=== PATIENT | female | born 1990 | race Two or more races ===

== ENCOUNTER 2016-04-25 20:16 | Outpatient (CLI) | payer BC ==
[2016-04-25 21:15] LABS: APPEARANCE,URINE SLIGHTLY-CLOUDY; BILIRUBIN,URINE NEGATIVE (NEGATIVE); GLUCOSE, URINE NEGATIVE (NEGATIVE); KETONES,URINE NEGATIVE (NEGATIVE); LEUKOCYTE ESTERASE,URINE NEGATIVE (NEGATIVE); NITRITE,URINE NEGATIVE (NEGATIVE); PROTEIN,URINE NEGATIVE (NEGATIVE); URINE SPECIFIC GRAVITY 1.004; UROBILINOGEN,URINE NEGATIVE mg/dL (<2.0)
[2016-04-25 21:27] LABS: AMNISURE (ROM) NEGATIVE (NEGATIVE)
[2016-04-25 21:34] LABS: URINE BARBITURATES SCREEN NEGATIVE; URINE METHADONE SCREEN NEGATIVE; URINE PHENCYCLIDINE SCREEN NEGATIVE
--- NOTE | 2016-04-25 21:45 | Non Stress Test Report ---
Non Stress Test Datetime Report Generated by CPN: 04/25/2016 21:45 DEMOGRAPHIC EGA NST: 39.6 INDICATION Indication for Study: Ordered by Provider; Other Indication for Study (NST) Other: LC URINE RESULTS Urine Protein, NST: Negative Urine Ketones - NST: Negative Urine Glucose - NST: Negative Urine Blood - NST: Negative MONITORING Monitor Explained: Monitor Explained; Test Explained; Patient Verbalized Understanding Time on Monitor: 04/25/2016 20:59 Time off Monitor: 04/25/2016 21:40 NST Duration: 41 NST INTERVENTIONS NST Interventions: Reposition Patient Physician Notified NST: Dr Chappell BABY A: [id number] BABY A Movement : Present; Decreased Contraction Frequency : Occasional FHR Baseline : 145 Accelerations : 15X15 Decelerations : None Variability : Moderate 6-25bpm NST Review: Meets Criteria for Reactive NST NST Review and Verified By : Chalman, A. RN NST Results: Reactive NST COMMENTS NST Comments: see flowsheet for VS NST REPORT Report Trigger: Send Report
== END 2016-04-25 20:51 | disposition home or self-care (01) ==
LOC: LC 20:16
PROVIDERS: ATTEND Obstetrics & Gynecology
PROC: 4A1HXCZ Monitoring of Products of Conception, Cardiac Rate, External Approach (ICD-10-PCS; principal; 2016-04-25)
DX: O47.1 False labor at or after 37 completed weeks of gestation (principal); Z3A.39 39 weeks gestation of pregnancy
CPT/HCPCS: 59025; 80307; 81005; 84112

== ENCOUNTER 2016-04-27 15:09 | Inpatient (IN) | payer BC ==
[2016-04-27 15:49] LABS: APPEARANCE,URINE CLEAR; BILIRUBIN,URINE NEGATIVE (NEGATIVE); GLUCOSE, URINE NEGATIVE (NEGATIVE); KETONES,URINE NEGATIVE (NEGATIVE); LEUKOCYTE ESTERASE,URINE NEGATIVE (NEGATIVE); NITRITE,URINE NEGATIVE (NEGATIVE); PROTEIN,URINE NEGATIVE (NEGATIVE); URINE SPECIFIC GRAVITY 1.002; UROBILINOGEN,URINE NEGATIVE mg/dL (<2.0)
[2016-04-27 15:52] LABS: AMNISURE (ROM) NEGATIVE (NEGATIVE)
--- NOTE | 2016-04-27 16:00 | L&D Flow Sheet ---
LD Flowsheet Datetime Report Generated by CPN: 04/27/2016 16:00 Datetime: 04/27/2016 15:58 Vaginal Bleeding: None (Sol Otis, RN) Datetime: 04/27/2016 15:41 NBP Sys/Brissa/Mean (mmHg): 118 (QS system process) : 73 (QS system process) : 91 (QS system process) Pulse: 83 (QS system process) LaborFlag: Labor (QS system process) Datetime: 04/27/2016 15:36 Stage of : Labor (Sol Parkinson RN) Dilatation (cm): Closed (Annotations: fingertip) (Sol Parkinson RN) Effacement: 0-30_ effaced (Sol Parkinson RN) Station: minus 2 (Sol Parkinson, RN) Consistency: Soft (Sol Parkinson, RN) Position: Posterior (Sol Parkinson, RN) Total Mackey's Score: 3 (QS system process) : 0-4 = Unfavorable cervix (QS system process) Communication: Provider at Bedside (Sol Parkinson RN) Provider Notified (Name): Ellie Kinsey CNm at bedside assessing patient. All questions answered (Sol Parkinson RN)
[2016-04-27 16:03] LABS: URINE BARBITURATES SCREEN NEGATIVE; URINE METHADONE SCREEN NEGATIVE; URINE OPIATES LOW NEGATIVE; URINE PHENCYCLIDINE SCREEN NEGATIVE
[2016-04-27 17:42] LABS: ABSOLUTE EOSINOPHILS # (AUTO) 0.1 10^3/uL (0.0-0.6); ABSOLUTE LYMPHOCYTES (AUTO) 1.8 10^3/uL (0.5-4.7); ABSOLUTE MONOCYTES (AUTO) 0.9 10^3/uL (0.1-1.4); BASOPHILS % (AUTO) 0.4 % (0-2); EOSINOPHILS % (AUTO) 1.5 % (0-6); HEMATOCRIT 35.8 % (36.0-47.0); HEMOGLOBIN 11.2 g/dL (12.0-15.5); HGB HCT DIFFERENCE -2.2; LYMPHOCYTES % (AUTO) 17.9 % (13-45); MEAN CORPUSCULAR HEMOGLOBIN 24.9 pg (27.0-33.4); MEAN CORPUSCULAR HGB CONC 31.3 g/dL (32.0-36.0); MEAN CORPUSCULAR VOLUME 80 fl (80-97); MONOCYTES % (AUTO) 8.9 % (3-13); RED BLOOD COUNT 4.49 10^6/uL (3.72-5.28); RED CELL DISTRIBUTION WIDTH 13.6 % (11.5-14.0); SEGMENTED NEUTROPHILS % (AUTO) 71.3 % (42-78); WHITE BLOOD COUNT 9.8 10^3/uL (4.0-10.5)
--- NOTE | 2016-04-27 18:00 | L&D Flow Sheet ---
LD Flowsheet Datetime Report Generated by CPN: 04/27/2016 18:00 Datetime: 04/27/2016 17:42 NBP Sys/Brissa/Mean (mmHg): 124 (QS system process) : 70 (QS system process) : 92 (QS system process) Pulse: 85 (QS system process) LaborFlag: Labor (QS system process) Datetime: 04/27/2016 17:30 Monitor Mode: External (Sol Reaganard, RN) Frequency (min): 3-6 (Sol Parkinson, RN) Quality: Mild/Moderate (Sol Parkinson RN) Duration (sec): 60-120 (Sol Parkinson, EDILMA) Duration Criteria: Less than Two 120 Second Contractions (Sol Parkinson RN) Pattern: Normal: <= 5 Contractions in 10 Minutes (Sol Parkinson RN) Resting Tone (Palpate): Relaxed (Sol Parkinson, RN) Contraction Comments: irregular pattern (Sol Parkinson RN) Monitor Mode: External US (Sol Parkinsno RN) FHR Baseline Rate : 135 (Sol Parkinson RN) FHR Baseline Changes: No Baseline Change (Sol Parkinson, EDILMA) Variability: Moderate 6-25 bpm (Sol Parkinson, EDILMA) Accelerations: 15X15 (Sol Parkinson RN) Decelerations: None (Sol Parkinson RN) Datetime: 04/27/2016 17:15 Communication: Call/Page Placed to Provider (Sol Parkinson RN) Provider Notified (Name): Dr. Topete (Sol Parkinson, EDILMA) Communication Comments: Notified of abnormal labs Hgb 5.1, Hct 16.2, platelets 87. and will redraw CBC with diff. Orders to call provider back with repeat results. (Sol Parkinson, EDILMA) Datetime: 04/27/2016 17:11 Stage of : Labor (Sol Parkinson RN) NBP Sys/Brissa/Mean (mmHg): 121 (QS system process) : 75 (QS system process) : 93 (QS system process) Pulse: 94 (QS system process) Respirations: 15 (Sol Parkinson, EDILMA) LaborFlag: Labor (QS system process) Datetime: 04/27/2016 17:00 Monitor Mode: External (Sol Parkinson, RN) Frequency (min): x2 (Sol Parkinson, RN) Quality: Mild (Sol Parkinson, RN) Duration (sec): 90/110 (Sol Parkinson, RN) Duration Criteria: Less than Two 120 Second Contractions (Sol Parkinson, RN) Pattern: Normal: <= 5 Contractions in 10 Minutes (Sol Parkinson, RN) Resting Tone (Palpate): Relaxed (Sol Parkinson, RN) Contraction Comments: irregular pattern (Sol Parkinson, RN) Monitor Mode: External US (Sol Parkinson, RN) FHR Baseline Rate : 135 (Sol Parkinson, RN) FHR Baseline Changes: No Baseline Change (Sol Parkinson, RN) Variability: Moderate 6-25 bpm (Sol Parkinson, RN) Accelerations: 15X15 (Sol Parkinson, RN) Decelerations: None (Sol Parkinson, RN) Datetime: 04/27/2016 16:43 I/O Interventions: Up to BR (Sol Iggy, RN) Datetime: 04/27/2016 16:42 Stage of : Labor (Sol Iggy, RN) NBP Sys/Brissa/Mean (mmHg): 136 (QS system process) : 84 (QS system process) : 105 (QS system process) Pulse: 91 (QS system process) Respirations: 12 (Sol Soldier, RN) LaborFlag: Labor (QS system process) Datetime: 04/27/2016 16:30 Monitor Mode: External (Sol Iggy, RN) Frequency (min): x2 (Sol Iggy, RN) Quality: Mild (Sol Parkinson RN) Duration (sec): 80/110 (Sol Parkinson RN) Pattern: Normal: <= 5 Contractions in 10 Minutes (Sol Parkinson RN) Resting Tone (Palpate): Relaxed (oSl Parkinson RN) Monitor Mode: External US (Sol Parkinson RN) FHR Baseline Rate : 135 (Sol Parkinson RN) FHR Baseline Changes: No Baseline Change (Sol Parkinson RN) Variability: Moderate 6-25 bpm (Sol Parkinson RN) Accelerations: 15X15 (Sol Parkinson RN) Decelerations: None (Sol Parkinson RN) Provider Reviewed Strip: Yes (Sol Parkinson RN) Communication: RN at Bedside; RN Reviewed Strip; Provider at Bedside (Sol Parkinson RN) Provider Notified (Name): Ellie Kinsey CNM at bedside obtaining induction consent with assistance of [employer] services (Sol Parkinson RN) Datetime: 04/27/2016 16:29 Communication: RN at Bedside (Sol Parknison RN) Communication Comments: Sol Parkinson RN obtaining consents with use of [employer] arresting [employer] operator services (Sol Parkinson RN) Datetime: 04/27/2016 16:14 Stage of : Labor (Sol Parkinson RN) NBP Sys/Brissa/Mean (mmHg): 136 (QS system process) : 82 (QS system process) : 104 (QS system process) Pulse: 94 (QS system process) Respirations: 14 (Sol Parkinson RN) LaborFlag: Labor (QS system process) Datetime: 04/27/2016 16:00 Monitor Mode: External; Palpation (Sol Parkinson RN) Frequency (min): x1 (Sol Parkinson RN) Quality: Mild (Sol Parkinson RN) Duration (sec): 120 (Sol Parkinson RN) Resting Tone (Palpate): Relaxed (Sol Parkinson RN) Contraction Comments: patient denies feeling contractions at this time (Sol Parkinson, EDILMA) Monitor Mode: External US (Sol Parkinson RN) Monitor Interventions for FHR: Ultrasound Adjusted (Sol Parkinson, RN) FHR Baseline Rate : 135 (Sol Parkinson RN) FHR Baseline Changes: No Baseline Change (Sol Parkinson, EDILMA) Variability: Moderate 6-25 bpm (Sol Parkinson, EDILMA) Accelerations: 15X15 (Sol Parkinson, EDILMA) Decelerations: None (Sol Parkinson, EDILMA) Comments: reports positive movement (Sol Parkinson, EDILMA)
[2016-04-27] MEDS ORDERED: RINGERS SOLUTION,LACTATED 300 ML IV PRN (19:57)
[2016-04-27] MEDS ORDERED: ZOLPIDEM TARTRATE 5 MG TABLET PO PRN (19:57)
[2016-04-27] MEDS ORDERED: MAG HYDROX/AL HYDROX/SIMETH SUSP 30 ML UDCUP PO PRN (19:58)
--- NOTE | 2016-04-27 20:00 | L&D Flow Sheet ---
LD Flowsheet Datetime Report Generated by CPN: 04/27/2016 20:00 Datetime: 04/27/2016 18:54 I/O Interventions: Up to BR (Sol Parkinson, RN) Patient Care Comments: Patient eating dinner per provider order (Sol Parkinson, RN) Datetime: 04/27/2016 18:43 NBP Sys/Brissa/Mean (mmHg): 111 (QS system process) : 76 (QS system process) : 89 (QS system process) Pulse: 82 (QS system process) LaborFlag: Labor (QS system process) Datetime: 04/27/2016 18:30 Monitor Mode: External (Sol Reaganard, RN) Frequency (min): x2 (Sol Parkinson, RN) Quality: Mild (Sol Sangamon, RN) Duration (sec): 100/140 (Sol Sangamon, RN) Duration Criteria: Less than Two 120 Second Contractions (Sol Reaganard, RN) Pattern: Normal: <= 5 Contractions in 10 Minutes (Sol Sangamon, RN) Resting Tone (Palpate): Relaxed (Sol Sangamon, RN) Monitor Mode: External US (Sol Reaganard, RN) FHR Baseline Rate : 150 (Sol Sangamon, RN) Variability: Moderate 6-25 bpm (Sol Iggy, RN) Accelerations: 15X15 (Sol Sangamon, RN) Decelerations: None (Sol Iggy, RN) Datetime: 04/27/2016 18:12 Stage of : Labor (Sol Parkinson, RN) NBP Sys/Brissa/Mean (mmHg): 124 (QS system process) : 63 (QS system process) : 84 (QS system process) Pulse: 79 (QS system process) Respirations: 16 (Sol Parkinson RN) LaborFlag: Labor (QS system process) Datetime: 04/27/2016 18:00 Stage of : Labor (Sol Parkinson RN) Temperature (F): 98.3 (Sol Parkinson RN) Temperature (C): 36.8 (QS system process) Temperature Route: Oral (Sol Parkinson RN) Monitor Mode: External (Sol Parkinson RN) Frequency (min): x2 (Sol Parkinson RN) Quality: Mild (Sol Parkinson RN) Duration (sec): 120/140 (Sol Parkinson RN) Pattern: Normal: <= 5 Contractions in 10 Minutes (Sol Parkinson RN) Resting Tone (Palpate): Relaxed (Sol Parkinson RN) Monitor Mode: External US (Sol Parkinson RN) FHR Baseline Rate : 135 (Sol Parkinson RN) FHR Baseline Changes: No Baseline Change (Sol Parkinson RN) Variability: Moderate 6-25 bpm (Sol Parkinson, RN) Accelerations: 15X15 (Sol Parkinson, RN) Decelerations: None (Sol Parkinson, EDILMA) Pain Scale: 0 (Sol Parkinson RN) Pain Presence: None/Denies (Sol Parkinson RN) Pain Type: N/A (Sol Parkinson, EDILMA) Pain Goal: 1 (Sol Parkinson RN) Pain Relief Measures: Comfort Measures (Sol Parkinson RN) LaborFlag: Labor (QS system process)
[2016-04-27] MEDS ORDERED: DINOPROSTONE 10 MG VAGINAL INSERT.SR ONE (20:28)
[2016-04-27] MEDS ORDERED: DINOPROSTONE 10 MG VAGINAL INSERT.SR PV ONE (21:00)
--- NOTE | 2016-04-27 22:00 | L&D Flow Sheet ---
LD Flowsheet Datetime Report Generated by CPN: 04/27/2016 22:00 Datetime: 04/27/2016 20:34 NBP Sys/Brissa/Mean (mmHg): 118 (QS system process) : 71 (QS system process) : 87 (QS system process) Pulse: 72 (QS system process) Respirations: 16 (Madisyn Pelayo RN) Temperature (F): 98.2 (Madisyn Pelayo RN) Temperature (C): 36.8 (QS system process) Pain Presence: None/Denies (Madisyn Pelayo RN) LaborFlag: Labor (QS system process) Datetime: 04/27/2016 20:32 Cervical Ripening Agents: Cervidil (Madisyn Pelayo RN)
[2016-04-28] MEDS ORDERED: ACETAMINOPHEN 325 MG TABLET ONE ×2 (04:09→19:46)
[2016-04-28] MEDS: RINGERS SOLUTION,LACTATED 1,000 ML IV PRN ×2 (04:30→08:51)
[2016-04-28] MEDS: ACETAMINOPHEN 325 MG TABLET PO PRN ×2 (04:30→19:47)
--- NOTE | 2016-04-28 08:01 | L&D Flow Sheet ---
LD Flowsheet Datetime Report Generated by CPN: 04/28/2016 08:00 Datetime: 04/28/2016 07:48 NBP Sys/Brissa/Mean (mmHg): 115 (QS system process) : 60 (QS system process) : 82 (QS system process) Pulse: 64 (QS system process) LaborFlag: Labor (QS system process) Datetime: 04/28/2016 07:28 Stage of : Labor (Sol Bruce, RN) NBP Sys/Brissa/Mean (mmHg): 139 (QS system process) : 82 (QS system process) : 102 (QS system process) Pulse: 106 (QS system process) Respirations: 14 (Sol Parkinson RN) Dilatation (cm): 1.0 (Sol Parkinson RN) Effacement (%): 70 (Sol Parkinson RN) Station: -1 (Sol Parkinson RN) Exam by: Sheryl Rizo RN (Sol Parkinson RN) Vaginal Bleeding: None (Sol Parkinson RN) Cervix, Consistency: Soft (Sol Parkinson RN) Cervix, Position: Posterior (Sol Parkinson RN) LaborFlag: Labor (QS system process) Datetime: 04/28/2016 07:27 Patient Position/Activity: Left Lateral; Trendelenburg (Sol Parkinson RN) Datetime: 04/28/2016 07:25 Stage of : Labor (Sol Parkinson RN) Communication: RN at Bedside; RN Reviewed Strip; Provider at Bedside (Annotations: Sol Parkinson RN and Sheryl Rizo RN at bedside performing interventions for decel) (Sol Parkinson RN) Provider Notified (Name): Dr. Chappell at bedside assessing patient. Reviewed FHT strip, aware of unchanged cervical exam, removal of cervidil. Orders received to start Pitocin per protocol. (Sol Parkinson RN) Datetime: 04/28/2016 07:24 Actions for Decelerations: Hands and Knees (Sol Parkinson RN) Datetime: 04/28/2016 07:21 Actions for Decelerations: Side to Side; Oxygen Applied; IV Bolus (Sol Parkinson RN) Medication Comments: cervidil pulled (Sol Parkinson RN) Oxygen Amount : 10 (Sol Parkinson RN) Communication Comments: Dr. Chappell notified of heart rate in 60s, Dr. Chappell states he is in main OR and on his way (Halley Garcia RN) Datetime: 04/28/2016 07:15 Level of Consciousness: Fully Conscious (Sol Bruce, RN) DTR's/Clonus: DTRs 2+; No Clonus (Sol Bruce, RN) Headache: Denies (Sol Bruce, RN) Breath Sounds, Left: Clear and Equal (Sol Bruce, RN) Breath Sounds, Right: Clear and Equal (Sol Bruce, RN) Nausea/Vomiting: Denies (Sol Bruce, RN) RUQ Epigastric Pain: Denies (Sol Bruce, RN) Datetime: 04/28/2016 07:05 Communication: Report Given to @ Iggy RN (Madisyn Gita, RN) Communication Comments: Care relinquished at this time (Madisyn Gita, RN) Datetime: 04/28/2016 07:00 Monitor Mode: External (Madisyn Giat, RN) Frequency (min): 2-5 (Madisyn Gita, RN) Quality: Moderate (Madisyn Gita, RN) Duration (sec): 60-170 (Madisyn Gita, RN) Resting Tone (Palpate): Relaxed (Madisyn Gita, RN) Monitor Mode: External US (Madisyn Gita, RN) FHR Baseline Rate : 130 (Madisyn Gita, RN) Variability: Moderate 6-25 bpm (Madisyn Gita, RN) Accelerations: 15X15 (Madisyn Gita, RN) Decelerations: None (Madisyn Gita, RN) Datetime: 04/28/2016 06:30 Monitor Mode: External (Madisyn Gita, RN) Frequency (min): irregular (Madisyn Gita, RN) Quality: Moderate (Madisyn Gita, RN) Duration (sec): 60-90 (Madisyn Gita, RN) Resting Tone (Palpate): Relaxed (Madisyn Gita, RN) Monitor Mode: External US (Madisyn Gita, RN) FHR Baseline Rate : 125 (Madisyn Gita, RN) Variability: Moderate 6-25 bpm (Madisyn Gita, RN) Accelerations: 15X15 (Madisyn Gita, RN) Decelerations: None (Madisyn Gita, RN) Datetime: 04/28/2016 06:25 I/O Interventions: Up to BR (Madisyn Gita, RN) Datetime: 04/28/2016 06:00 Monitor Mode: External (Madisyn Gita, RN) Frequency (min): 2-6 (Madisyn Gita, RN) Quality: Moderate (Madisyn Gita, RN) Duration (sec): 50-80 (Madisyn Gita, RN) Resting Tone (Palpate): Relaxed (Madisyn Gita, RN) Monitor Mode: External US (Madisyn Gita, RN) FHR Baseline Rate : 125 (Madisyn Gita, RN) Variability: Moderate 6-25 bpm (Madisyn Gita, RN) Accelerations: 15X15 (Madisyn Gita, RN) Decelerations: None (Madisyn Gita, RN) Datetime: 04/28/2016 05:30 Monitor Mode: External (Madisyn Gita, RN) Frequency (min): 2-4 (Madisyn Gita, RN) Quality: Moderate (Madisyn Gita, RN) Duration (sec): 50-90 (Madisyn Gita, RN) Resting Tone (Palpate): Relaxed (Madisyn Gita, RN) Monitor Mode: External US (Madisyn Gita, RN) FHR Baseline Rate : 135 (Madisyn Gita, RN) Variability: Moderate 6-25 bpm (Madisyn Gita, RN) Accelerations: 15X15 (Madisyn Gita, RN) Decelerations: None (Madisyn Gita, RN) Datetime: 04/28/2016 05:00 Monitor Mode: External (Madisyn Gita, RN) Frequency (min): 1-5 (Madisyn Gita, RN) Quality: Moderate (Madisyn Gita, RN) Duration (sec): 50-120 (Madisyn Gita, RN) Resting Tone (Palpate): Relaxed (Madisyn Gita, RN) Monitor Mode: External US (Madisyn Gita, RN) FHR Baseline Rate : 120 (Madisyn Gita, RN) Variability: Moderate 6-25 bpm (Madisyn Gita, RN) Accelerations: 15X15 (Madisyn Gita, RN) Decelerations: None (Madisyn Gita, RN) Datetime: 04/28/2016 04:56 Monitor Interventions for FHR: Ultrasound Adjusted (Madisyn Gita, RN) IV/Blood Work: IV Infusing per Order (Madisyn Gita, RN) Communication: RN at Bedside (Madisyn Gita, RN) Datetime: 04/28/2016 04:30 Monitor Mode: External (Madisyn Gita, RN) Frequency (min): 2-4 (Madisyn Gita, RN) Quality: Moderate (Madisyn Gita, RN) Duration (sec): 50-80 (Madisyn Gita, RN) Resting Tone (Palpate): Relaxed (Madisyn Gita, RN) Monitor Mode: External US (Madisyn Gita, RN) FHR Baseline Rate : 125 (Madisyn Gita, RN) Variability: Moderate 6-25 bpm (Madisyn Gita, RN) Accelerations: 15X15 (Madisyn Gita, RN) Decelerations: None (Madisyn Gita, RN) Datetime: 04/28/2016 04:14 I/O Interventions: Up to BR (Madisyn Gita, RN) Datetime: 04/28/2016 04:11 Medication Comments: tylenol 650 mg PO (Madisyn Gita, RN) Datetime: 04/28/2016 04:02 Quality: Moderate (Madisyn Gita, RN) Pain Coping: Talking Through Contractions; Breathing Through Contractions (Madisyn Pelayo RN) Pain Assessment Comments: Pt called RN to bedside, reports her pain is "worse than a period." Pt is watching TV, grimaces with ctx/ irritability. Pt is unsure of a numerical value for pain. RN explained pain medication could be requested, but pt would need SVE prior. Pt declined SVE. Plan for 650 tylenol PO. Pt instructed to alert RN if pain worsens/ pt feels she should have her cervix checked (Madisyn Pelayo RN) Communication: RN at Bedside (Madisyn Pelayo RN) LaborFlag: Labor (QS system process) Datetime: 04/28/2016 04:00 Monitor Mode: External (Madisyn Pelayo RN) Frequency (min): 2-8 (Madisyn Pelayo RN) Quality: Mild/Moderate (Madisyn Pelayo RN) Duration (sec): 50-120 (Madisyn Pelayo RN) Resting Tone (Palpate): Relaxed (Madisyn Pelayo RN) Monitor Mode: External US (Madisyn Pelayo RN) FHR Baseline Rate : 125 (Madisyn Pelayo RN) Variability: Moderate 6-25 bpm (Madisyn Pelayo RN) Accelerations: 15X15 (Madisyn Pelayo RN) Decelerations: None (Madisyn Pelayo RN) Datetime: 04/28/2016 03:30 Monitor Mode: External (Madisyn Gita, RN) Frequency (min): 3-7 (Madisyn Gita, RN) Quality: Mild/Moderate (Madisyn Gita, RN) Duration (sec): 60-120 (Madisyn Gita, RN) Resting Tone (Palpate): Relaxed (Madisyn Gita, RN) Contraction Comments: Irritability (Madisyn Gita, RN) Monitor Mode: External US (Madisyn Gita, RN) FHR Baseline Rate : 135 (Madisyn Gita, RN) Variability: Moderate 6-25 bpm (Madisyn Gita, RN) Accelerations: 15X15 (Madisyn Gita, RN) Decelerations: None (Madisyn Gita, RN) Datetime: 04/28/2016 03:00 Monitor Mode: External (Madisyn Gita, RN) Frequency (min): 2-5 (Madisyn Gita, RN) Quality: Mild/Moderate (Madisyn Gita, RN) Duration (sec): 70-110 (Madisyn Gita, RN) Resting Tone (Palpate): Relaxed (Madisyn Gita, RN) Monitor Mode: External US (Madisyn Gita, RN) FHR Baseline Rate : 125 (Madisyn Gita, RN) Variability: Moderate 6-25 bpm (Madisyn Gita, RN) Accelerations: 15X15 (Madisyn Gita, RN) Decelerations: None (Madisyn Gita, RN) Datetime: 04/28/2016 02:30 Monitor Mode: External (Madisyn Gita, RN) Frequency (min): 2-5 (Madisyn Gita, RN) Quality: Mild/Moderate (Madisyn Gita, RN) Duration (sec): 70-120 (Madisyn Gita, RN) Resting Tone (Palpate): Relaxed (Madisyn Gita, RN) Monitor Mode: External US (Madisyn Gita, RN) FHR Baseline Rate : 125 (Madisyn Gita, RN) Variability: Moderate 6-25 bpm (Madisyn Gita, RN) Accelerations: 15X15 (Madisyn Gita, RN) Decelerations: None (Madisyn Gita, RN) Datetime: 04/28/2016 02:00 Monitor Mode: External (Madisyn Gita, RN) Frequency (min): 3-4 (Madisyn Gita, RN) Quality: Mild/Moderate (Madisyn Gita, RN) Duration (sec): 80-120 (Madisyn Gita, RN) Resting Tone (Palpate): Relaxed (Madisyn Gita, RN) Monitor Mode: External US (Madisyn Gita, RN) FHR Baseline Rate : 125 (Madisyn Gita, RN) Variability: Moderate 6-25 bpm (Madisyn Gita, RN) Accelerations: 15X15 (Madisyn Gita, RN) Decelerations: None (Madisyn Gita, RN) Datetime: 04/28/2016 01:30 Monitor Mode: External (Madisyn Gita, RN) Frequency (min): 2-4 (Madisyn Gita, RN) Quality: Mild (Madisyn Gita, RN) Duration (sec): 50-120 (Madisyn Gita, RN) Resting Tone (Palpate): Relaxed (Madisyn Gita, RN) Monitor Mode: External US (Madisyn Gita, RN) FHR Baseline Rate : 130 (Madisyn Gita, RN) Variability: Moderate 6-25 bpm (Madisyn Gita, RN) Accelerations: 15X15 (Madisyn Gita, RN) Decelerations: None (Madisyn Gita, RN) Datetime: 04/28/2016 01:00 Monitor Mode: External (Madisyn Gita, RN) Frequency (min): 4-6 (Madisyn Gita, RN) Quality: Mild (Madisyn Gita, RN) Duration (sec): 60-90 (Madisyn Gita, RN) Resting Tone (Palpate): Relaxed (Madisyn Gita, RN) Monitor Mode: External US (Madisyn Gita, RN) FHR Baseline Rate : 135 (Madisyn Gita, RN) Variability: Moderate 6-25 bpm (Madisyn Gita, RN) Accelerations: 15X15 (Madisyn Gita, RN) Decelerations: None (Madisyn Gita, RN) Datetime: 04/28/2016 00:30 Monitor Mode: External (Madisyn Gita, RN) Frequency (min): 2-6 (Madisyn Gita, RN) Quality: Mild (Madisyn Gita, RN) Duration (sec): 50-120 (Madisyn Gita, RN) Resting Tone (Palpate): Relaxed (Madisyn Gita, RN) Monitor Mode: External US (Madisyn Gita, RN) FHR Baseline Rate : 120 (Madisyn Gita, RN) Variability: Moderate 6-25 bpm (Madisyn Gita, RN) Accelerations: None (Madisyn Gita, RN) Decelerations: Late (Madisyn Gita, RN) Comments: late decel x 1 (Madisyn Gita, RN) Datetime: 04/28/2016 00:00 Monitor Mode: External (Madisyn Gita, RN) Frequency (min): Irregular (Madisyn Gita, RN) Quality: Mild (Madisyn Gita, RN) Duration (sec): 70-140 (Madisyn Gita, RN) Resting Tone (Palpate): Relaxed (Madisyn Gita, RN) Monitor Mode: External US (Madisyn Gita, RN) FHR Baseline Rate : 125 (Madisyn Gita, RN) Variability: Moderate 6-25 bpm (Madisyn Gita, RN) Accelerations: None (Madisyn Gita, RN) Decelerations: None (Madisyn Gita, RN) Datetime: 04/27/2016 23:54 I/O Interventions: Up to BR (Madisyn Gita, RN) Datetime: 04/27/2016 23:30 Monitor Mode: External (Madisyn Gita, RN) Frequency (min): Irregular (Madisyn Gita, RN) Quality: Mild (Madisyn Gita, RN) Duration (sec): 70-120 (Madisyn Gita, RN) Resting Tone (Palpate): Relaxed (Madisyn Gita, RN) Monitor Mode: External US (Madisyn Gita, RN) FHR Baseline Rate : 125 (Madisyn Gita, RN) Variability: Moderate 6-25 bpm (Madisyn Gita, RN) Accelerations: 10X10 (Madisyn Gita, RN) Decelerations: Late (Madisyn Gita, RN) Datetime: 04/27/2016 23:13 Monitor Interventions for FHR: Ultrasound Adjusted (Madisyn Gita, RN) Patient Position/Activity: Left Tilt (Madisyn Gita, RN) Patient Care Comments: Pt sitting up, repositioned (Madisyn Gita, RN) Communication: RN at Bedside (Madisyn Gita, RN) Datetime: 04/27/2016 23:00 Monitor Mode: External (Madisyn Gita, RN) Frequency (min): Irregular (Madisyn Gita, RN) Quality: Mild (Madisyn Gita, RN) Duration (sec): 60-70 (Madisyn Gita, RN) Resting Tone (Palpate): Relaxed (Madisyn Gita, RN) Monitor Mode: External US (Madisyn Gita, RN) FHR Baseline Rate : 125 (Madisyn Gita, RN) Variability: Moderate 6-25 bpm (Madisyn Gita, RN) Accelerations: None (Madisyn Gita, RN) Decelerations: None (Madisyn Gita, RN) Datetime: 04/27/2016 22:36 I/O Interventions: Up to BR (Madisyn Gita, RN) Datetime: 04/27/2016 22:30 Monitor Mode: External (Madisyn Gita, RN) Frequency (min): Irregular (Madisyn Gita, RN) Quality: Mild (Madisyn Gita, RN) Duration (sec): 60-140 (Madisyn Gita, RN) Resting Tone (Palpate): Relaxed (Madisyn Gita, RN) Monitor Mode: External US (Madisyn Gita, RN) FHR Baseline Rate : 135 (Madisyn Gita, RN) Variability: Moderate 6-25 bpm (Madisyn Gita, RN) Accelerations: 15X15 (Madisyn Gita, RN) Decelerations: None (Madisyn Gita, RN) Datetime: 04/27/2016 22:00 Monitor Mode: External (Madisyn Gita, RN) Frequency (min): Irregular (Madisyn Gita, RN) Quality: Mild (Madisyn Gita, RN) Duration (sec): 60-180 (Madisyn Pelayo RN) Resting Tone (Palpate): Relaxed (Madisyn Pelayo RN) Monitor Mode: External US (Madisyn Pelayo RN) FHR Baseline Rate : 135 (Madisyn Pelayo RN) Variability: Moderate 6-25 bpm (Madisyn Pelayo RN) Accelerations: 15X15 (Madisyn Pelayo RN) Decelerations: None (Madisyn Pelayo RN)
[2016-04-28] MEDS ORDERED: OXYTOCIN/NORMAL SALINE 20 UNIT/1,000 ML RTUINJ ONE (08:14)
[2016-04-28] MEDS ORDERED: OXYTOCIN/NORMAL SALINE 1,000 ML IV PRN (08:38)
--- NOTE | 2016-04-28 10:00 | L&D Flow Sheet ---
LD Flowsheet Datetime Report Generated by CPN: 04/28/2016 10:00 Datetime: 04/28/2016 09:49 NBP Sys/Brissa/Mean (mmHg): 134 (QS system process) : 77 (QS system process) : 100 (QS system process) Pulse: 74 (QS system process) LaborFlag: Labor (QS system process) Datetime: 04/28/2016 09:45 Monitor Mode: External; Palpation (REGAAN Carr) Frequency (min): 1-3.5 (Laverne Rizo, RNC) Quality: Moderate (Laverne Darrius, RNC) Duration (sec): 40-70 (Laverne Darrius, RNC) Duration Criteria: Less than Two 120 Second Contractions (Laverne Darrius, RNC) Pattern: Normal: <= 5 Contractions in 10 Minutes (Laverne Darrius, RNC) Resting Tone (Palpate): Relaxed (Laverne Darrius, RNC) Monitor Mode: External US (Laverne Darrius, RNC) FHR Baseline Rate : 150 (Laverne Darrius, RNC) Variability: Moderate 6-25 bpm (Laverne Darrius, RNC) Accelerations: None (Laverne Darrius, RNC) Decelerations: None (Laverne Darrius, RNC) Datetime: 04/28/2016 09:30 Monitor Mode: External; Palpation (Laverne Rizo, RNC) Frequency (min): 1.5-3 (Laverne Darrius, RNC) Quality: Moderate (Laverne Darrius, RNC) Duration (sec): 40-70 (Laverne Darrius, RNC) Duration Criteria: Less than Two 120 Second Contractions (Laverne Darrius, RNC) Pattern: Normal: <= 5 Contractions in 10 Minutes (Laverne Darrius, RNC) Resting Tone (Palpate): Relaxed (Laverne Darrius, RNC) Monitor Mode: External US (Laverne Darrius, RNC) FHR Baseline Rate : 150 (Laverne Darrius, RNC) Variability: Moderate 6-25 bpm (Laverne Darrius, RNC) Accelerations: None (Laverne Darrius, RNC) Decelerations: None (Laverne Darrius, RNC) Pitocin (milliunit): Pitocin Increased to (milliunits) @ (Annotations: 3) (Slo Parkinson RN) Datetime: 04/28/2016 09:29 IV/Blood Work: IV Infusing per Order (Sol Parkinson RN) Patient Position/Activity: Right Lateral; Low Fowlers (Sol Parkinson RN) Communication: Provider Orders Received (Sol Parkinson RN) Provider Notified (Name): Dr. Chappell on unitl orders received to increase pitocin by 1 milliunit every 30 minutes (Sol Parkinson RN) Datetime: 04/28/2016 09:19 Stage of : Labor (Sol Parkinson RN) NBP Sys/Brissa/Mean (mmHg): 110 (QS system process) : 58 (QS system process) : 82 (QS system process) Pulse: 66 (QS system process) Respirations: 14 (Sol Parkinson RN) LaborFlag: Labor (QS system process) Datetime: 04/28/2016 09:15 Monitor Mode: External; Palpation (Laverne Darrius, RNC) Frequency (min): 1-2.5 (Laverne Darrius, RNC) Quality: Moderate (Laverne Darrius, RNC) Duration (sec): 60-80 (Laverne Darrius, RNC) Duration Criteria: Less than Two 120 Second Contractions (Laverne Darrius, RNC) Pattern: Normal: <= 5 Contractions in 10 Minutes (Laverne Darrius, RNC) Resting Tone (Palpate): Relaxed (Laverne Darrius, RNC) Monitor Mode: External US (Laverne Darrius, RNC) FHR Baseline Rate : 150 (Laverne Darrius, RNC) Variability: Moderate 6-25 bpm (Laverne Darrius, RNC) Accelerations: None (Laverne Darrius, RNC) Decelerations: None (Laverne Darrius, RNC) Pitocin (milliunit): Pitocin Remains (milliunits) @ (Annotations: 2) (Sol Parkinson, EDILMA) Datetime: 04/28/2016 09:00 Monitor Mode: External (Kelli Vidya, RN) Frequency (min): 2-4 (Kelli Marhefka, RN) Quality: Moderate (Kelli Dasilva, RN) Duration (sec): 40-80 (Kelli Dasilva, RN) Resting Tone (Palpate): Relaxed (Kelli Dasilva RN) Monitor Mode: External US (Kelli Dasilva RN) FHR Baseline Rate : 150 (Kelli Hobsonfmacy, RN) FHR Baseline Changes: No Baseline Change (Kelli Dasilva RN) Variability: Moderate 6-25 bpm (Kelli Hobsonfka, RN) Accelerations: 15X15 (Kelli Jocefka, RN) Decelerations: None (Kelli Hobsonfka, RN) Datetime: 04/28/2016 08:59 Provider Notified (Name): Dr. Chappell on unit, reviewed strip and updated on patient and fetus status (Sol Parkinson RN) Notification Reason: Status Update; Status; Labor Status; Uterine Activity (Sol Parkinson RN) Datetime: 04/28/2016 08:52 Pitocin (milliunit): Pitocin Started (milliunits) @ 2 (Sol Parkinson RN) Datetime: 04/28/2016 08:49 Pain Scale: 2 (Sol Parkinson RN) Pain Presence: Intermittent (Sol Parkinson RN) Pain Type: Cramping (Sol Parkinson RN) Pain Location: Abdomen (Sol Parkinson RN) Pain Goal: 1 (Sol Parkinson RN) Pain Relief Measures: Comfort Measures (Sol Parkinson RN) Pain Coping: Breathing Through Contractions (Sol Parkinson RN) IV/Blood Work: IV Infusing per Order (Sol Parkinson, EDILMA) Patient Position/Activity: Right Lateral; Low Fowlers (Sol Parkinson, EDILMA) Comfort Measures: Breathing/Relaxation; Family Support (Sol Parkinson RN) LaborFlag: Labor (QS system process) Datetime: 04/28/2016 08:46 Comments: Oxygen discontinued (Sol Parkinson RN) I/O Interventions: Up to BR (Kelli Dasilva RN) I/O Interventions: Up to BR (Sol Ironside, RN) Datetime: 04/28/2016 08:45 Monitor Mode: External (Sol Parkinson, RN) Frequency (min): 2-3.5 (Sol Parkinson, RN) Quality: Moderate (Sol Iggy, RN) Duration (sec): 60-90 (Sol Ironside, RN) Duration Criteria: Less than Two 120 Second Contractions (Sol Ironside, RN) Pattern: Normal: <= 5 Contractions in 10 Minutes (Sol Ironside, RN) Resting Tone (Palpate): Relaxed (Sol Ironside, RN) Monitor Mode: External US (Sol Reaganard, RN) FHR Baseline Rate : 150 (Sol Reaganard, RN) FHR Baseline Changes: No Baseline Change (Sol Iggy, RN) Variability: Moderate 6-25 bpm (Sol Iggy, RN) Accelerations: 15X15 (Sol Iggy, RN) Decelerations: None (Sol Iggy, RN) Datetime: 04/28/2016 08:35 Stage of : Labor (Sol Parkinson, RN) NBP Sys/Brissa/Mean (mmHg): 106 (QS system process) : 59 (QS system process) : 79 (QS system process) Pulse: 61 (QS system process) Respirations: 16 (Sol Parkinson RN) LaborFlag: Labor (QS system process) Datetime: 04/28/2016 08:30 Monitor Mode: External; Palpation (Sol Parkinson RN) Monitor Interventions for UA: [place] Adjusted (Sol Parkinson RN) Frequency (min): 2-4 (Sol Parkinson RN) Quality: Mild/Moderate (Sol Parkinson RN) Duration (sec): 70-100 (Sol Parkinson RN) Duration Criteria: Less than Two 120 Second Contractions (Sol Parkinson RN) Pattern: Normal: <= 5 Contractions in 10 Minutes (Sol Parkinson RN) Resting Tone (Palpate): Relaxed (Sol Parkinson RN) Contraction Comments: uterine irritability noted (Sol Parkinson RN) Contraction Comments: unable to determine due to patient position (Sol Parkinson, EDILMA) Monitor Mode: External US (Sol Parkinson RN) FHR Baseline Rate : 150 (Sol Parkinson RN) FHR Baseline Changes: No Baseline Change (Sol Parkinson RN) Variability: Moderate 6-25 bpm (Sol Parkinson, EDILMA) Accelerations: 15X15 (Sol Parkinson RN) Decelerations: None (Sol Parkinson RN) Comments: reports positive movement (Sol Parkinson, EDILMA) Datetime: 04/28/2016 08:18 Stage of : Labor (Sol Parkinson RN) NBP Sys/Brissa/Mean (mmHg): 116 (QS system process) : 63 (QS system process) : 83 (QS system process) Pulse: 81 (QS system process) Respirations: 12 (Sol Parkinson RN) LaborFlag: Labor (QS system process) Datetime: 04/28/2016 08:09 Instructional Method: Verbal; Patient Instructed; Family/Support Person Instructed; Verbalized Understanding (Sol Parkinson RN) Plan of Care: Plan of Care Discussed (Sol Parkinson RN) Unit Routine: [place] to Room; Call [place]; Bed; Visiting Policy; Waiting Areas; Infant Security; Phone/Cell Phone Use; Photography; Unit Personnel; Consents Signed; Handwashing; Flu/Illness Precautions; Monitoring; IV Pumps; Safety/Fall Risk Prevention; Diet/Nutrition Services; Bathroom Privileges; Routine Time Outs; Medications (Sol Parkinson RN) Pain Management: Pain Scale/Goals; Comfort Measures (Sol Parkinson RN) Related: Common Discomforts of ; Maternal Physical Changes; Maternal Emotional Changes; Nutrition; Hydration; Activity and Rest (Sol Parkinson RN) Datetime: 04/28/2016 08:03 Stage of : Labor (Sol Parkinson RN) NBP Sys/Brissa/Mean (mmHg): 103 (QS system process) : 56 (QS system process) : 74 (QS system process) Pulse: 64 (QS system process) Respirations: 14 (Sol Parkinson RN) LaborFlag: Labor (QS system process) Datetime: 04/28/2016 08:00 Monitor Mode: External; Palpation (Sol Parkinson RN) Monitor Interventions for UA: [place] Adjusted (Sol Parkinson RN) Frequency (min): 2-5 (Sol Parkinson RN) Quality: Mild/Moderate (Sol Parkinson RN) Duration (sec): 60-110 (Sol Parkinson RN) Duration Criteria: Less than Two 120 Second Contractions (Sol Parkinson RN) Pattern: Normal: <= 5 Contractions in 10 Minutes (Sol Parkinson RN) Resting Tone (Palpate): Relaxed (Sol Parkinson RN) Contraction Comments: uterine irritability (Sol Parkinson RN) Monitor Mode: External US (Sol Parkinson RN) FHR Baseline Rate : 160 (Sol Parkinson RN) Variability: Moderate 6-25 bpm (Sol Parkinson, EDILMA) Accelerations: 15X15 (Sol Parkinson, EDILMA) Decelerations: None (Sol Parkinson RN) Comments: non-rebreather continued (Sol Parkinson, EDILMA) Oxygen Amount : 10 (Sol Parkinson, EDILMA) Communication: RN at Bedside (Sol Parkinson RN)
--- NOTE | 2016-04-28 12:00 | L&D Flow Sheet ---
LD Flowsheet Datetime Report Generated by CPN: 04/28/2016 12:00 Datetime: 04/28/2016 11:50 Stage of : Labor (Sol Parkinson RN) NBP Sys/Brissa/Mean (mmHg): 114 (QS system process) : 63 (QS system process) : 83 (QS system process) Pulse: 64 (QS system process) Respirations: 16 (Sol Parkinson RN) Temperature (F): 98.0 (Sol Parkinson RN) Temperature (C): 36.7 (QS system process) Temperature Route: Oral (Sol Parkinson RN) Pain Scale: 3 (Sol Parkinson RN) Pain Presence: Intermittent (Sol Parkinson RN) Pain Type: Contraction (Sol Parkinson RN) Pain Location: Abdomen (Sol Parkinson RN) Pain Goal: 1 (Sol Parkinson RN) Pain Relief Measures: Comfort Measures (Sol Parkinson RN) Pain Coping: Breathing Through Contractions (Sol Parkinson RN) LaborFlag: Labor (QS system process) Datetime: 04/28/2016 11:45 Monitor Mode: External (Sol Parkinson, RN) Frequency (min): 2-5 (Sol Parkinson, RN) Quality: Moderate (Sol Reaganard, RN) Duration (sec): 70-100 (Sol Reaganard, RN) Duration Criteria: Less than Two 120 Second Contractions (Sol Reaganard, RN) Pattern: Normal: <= 5 Contractions in 10 Minutes (Sol Reaganard, RN) Resting Tone (Palpate): Relaxed (Sol Parkinson, RN) Monitor Mode: External US (Sol Parkinson, RN) FHR Baseline Rate : 130 (Sol Reaganard, RN) FHR Baseline Changes: No Baseline Change (Sol Reaganard, RN) Variability: Moderate 6-25 bpm (Sol Alle[place], RN) Accelerations: 15X15 (Sol [place], RN) Decelerations: Early (Sol Reaganard, RN) Pitocin (milliunit): Pitocin Remains (milliunits) @ (Annotations: 8) (Sol Parkinson, RN) Datetime: 04/28/2016 11:41 I/O Interventions: Up to BR (Sol Parkinson, RN) Datetime: 04/28/2016 11:30 Monitor Mode: External (Sol Reaganard, RN) Frequency (min): 2-3 (Sol Parkinson, RN) Quality: Moderate (Sol Iggy, RN) Duration (sec): 50-100 (Sol [place], RN) Duration Criteria: Less than Two 120 Second Contractions (Sol [place], RN) Pattern: Normal: <= 5 Contractions in 10 Minutes (Sol [place], RN) Resting Tone (Palpate): Relaxed (Sol [place], RN) Monitor Mode: External US (Sol Reaganard, RN) FHR Baseline Rate : 130 (Sol [place], RN) FHR Baseline Changes: No Baseline Change (Sol [place], RN) Variability: Moderate 6-25 bpm (Sol [place], RN) Accelerations: 15X15 (Sol Iggy, RN) Decelerations: Early (Sol [place], RN) Pitocin (milliunit): Pitocin Increased to (milliunits) @ (Annotations: 8) (Sol [place], RN) Datetime: 04/28/2016 11:19 Stage of : Labor (Sol Parkinson RN) NBP Sys/Brissa/Mean (mmHg): 121 (QS system process) : 66 (QS system process) : 88 (QS system process) Pulse: 71 (QS system process) Respirations: 15 (Sol Parkinson RN) LaborFlag: Labor (QS system process) Datetime: 04/28/2016 11:17 IV/Blood Work: IV Infusing per Order (Sol Parkinson RN) Patient Position/Activity: Right Lateral; Peanut Ball; Low Fowlers (Sol Parkinson RN) Communication: RN at Bedside; RN Reviewed Strip (Sol Parkinson RN) Datetime: 04/28/2016 11:15 Monitor Mode: External (Sol Parkinson RN) Frequency (min): 2-3.5 (Sol Parkinson RN) Quality: Moderate (Sol Parkinson RN) Duration (sec): 50-100 (Sol Parkinson RN) Duration Criteria: Less than Two 120 Second Contractions (Sol Parkinson RN) Pattern: Normal: <= 5 Contractions in 10 Minutes (Sol Parkinson, RN) Resting Tone (Palpate): Relaxed (Sol Parkinson, EDILMA) Monitor Mode: External US (Sol Parkinson, EDILMA) FHR Baseline Rate : 135 (Sol Parkinson, RN) FHR Baseline Changes: No Baseline Change (Sol Parkinson, RN) Variability: Moderate 6-25 bpm (Sol Parkinson, RN) Accelerations: 10X10 (Sol Parkinson, RN) Decelerations: Early (Sol Parkinson, EDILMA) Pitocin (milliunit): Pitocin Remains (milliunits) @ (Annotations: 7) (Sol Parkinson, EDILMA) Datetime: 04/28/2016 11:00 Monitor Mode: External (Sol Parkinson, EDILMA) Frequency (min): 2-3.5 (Sol Parkinson, EDILMA) Quality: Moderate (Sol Parkinson, EDILMA) Duration (sec): 40-80 (Sol Parkinson, EDILMA) Duration Criteria: Less than Two 120 Second Contractions (Sol Parkinson, EDILMA) Pattern: Normal: <= 5 Contractions in 10 Minutes (Sol Parkinson, EDILMA) Resting Tone (Palpate): Relaxed (Sol Parkinson, EDILMA) Monitor Mode: External US (Sol Parkinson, EDILMA) FHR Baseline Rate : 135 (Sol Parkinson, EDILMA) FHR Baseline Changes: No Baseline Change (Sol Parkinson, EDILMA) Variability: Moderate 6-25 bpm (Sol Parkinson, RN) Accelerations: 15X15 (Sol Prakinson, RN) Decelerations: None (Sol Parkinson, RN) Pitocin (milliunit): Pitocin Increased to (milliunits) @ (Annotations: 7) (Sol Parkinson RN) Datetime: 04/28/2016 10:50 Stage of : Labor (Sol Parkinson RN) NBP Sys/Brissa/Mean (mmHg): 110 (QS system process) : 61 (QS system process) : 78 (QS system process) Pulse: 64 (QS system process) Respirations: 16 (Sol Parkinson RN) LaborFlag: Labor (QS system process) Datetime: 04/28/2016 10:45 Monitor Mode: External (Sol Parkinson RN) Frequency (min): 2-3 (Sol Parkinson RN) Quality: Moderate (Sol Parkinson RN) Duration (sec): 50-100 (Sol Parkinson RN) Duration Criteria: Less than Two 120 Second Contractions (Sol Parkinson RN) Pattern: Normal: <= 5 Contractions in 10 Minutes (Sol Parkinson RN) Resting Tone (Palpate): Relaxed (Sol Parkinson RN) Monitor Mode: External US (Sol [place], RN) FHR Baseline Rate : 135 (Sol Parkinson, RN) FHR Baseline Changes: No Baseline Change (Sol Reaganard, RN) Variability: Moderate 6-25 bpm (Sol Reaganard, RN) Accelerations: 15X15 (Sol Reaganard, RN) Decelerations: None (Sol Parkinson, RN) Pitocin (milliunit): Pitocin Remains (milliunits) @ (Annotations: 6) (Sol Parkinson, RN) Datetime: 04/28/2016 10:36 Patient Position/Activity: Left Lateral; Peanut Ball (Sol Parkinson, RN) Datetime: 04/28/2016 10:30 Monitor Mode: External (Sol Parkinson, RN) Frequency (min): 1.5-4.5 (Sol Parkinson, RN) Quality: Moderate (Sol Parkinson, RN) Duration (sec): 60-110 (Sol Parkinson, RN) Duration Criteria: Less than Two 120 Second Contractions (Sol Parkinson, RN) Pattern: Normal: <= 5 Contractions in 10 Minutes (Sol Parkinson, RN) Resting Tone (Palpate): Relaxed (Sol Parkinson RN) Monitor Mode: External US (Sol Parkinson RN) FHR Baseline Rate : 135 (Sol Parkinson RN) FHR Baseline Changes: No Baseline Change (Sol Parkinson RN) Variability: Moderate 6-25 bpm (Sol Parkinson RN) Accelerations: 15X15 (Sol Parkinson RN) Decelerations: None (Sol Parkinson RN) Pitocin (milliunit): Pitocin Increased to (milliunits) @ (Annotations: 6) (Sol Parkinson RN) Medication Comments: Dr. Chappell aware of increase of Pitocin to 6 milliunits/hr (Sol Parkinson RN) Datetime: 04/28/2016 10:18 Stage of : Labor (Sol Parkinson RN) NBP Sys/Brissa/Mean (mmHg): 119 (QS system process) : 69 (QS system process) : 87 (QS system process) Pulse: 69 (QS system process) Respirations: 14 (Sol Parkinson RN) LaborFlag: Labor (QS system process) Datetime: 04/28/2016 10:15 Monitor Mode: External (Sol Parkinson, RN) Frequency (min): 1.5-5 (Sol Parkinson, RN) Quality: Moderate (Sol Parkinson, RN) Duration (sec): 50-70 (Sol Parkinson, RN) Duration Criteria: Less than Two 120 Second Contractions (Sol Parkinson, RN) Pattern: Normal: <= 5 Contractions in 10 Minutes (Sol Parkinson, RN) Resting Tone (Palpate): Relaxed (Sol Parkinson, RN) Contraction Comments: irregular pattern (Sol Parkinson, RN) Monitor Mode: External US (Sol Parkinson, RN) FHR Baseline Rate : 140 (Sol Parkinson, RN) FHR Baseline Changes: No Baseline Change (Sol Parkinson, RN) Variability: Moderate 6-25 bpm (Sol Parkinson, RN) Accelerations: 10X10 (Sol Parkinson, RN) Decelerations: None (Sol Parkinson, RN) Pitocin (milliunit): Pitocin Remains (milliunits) @ (Annotations: 4) (Sol Parkinson, RN) Datetime: 04/28/2016 10:00 Stage of : Labor (Sol Parkinson, RN) Monitor Mode: External (Sol Parkinson, RN) Frequency (min): 1.5-4 (Sol Parkinson, RN) Quality: Moderate (Sol Parkinson, RN) Duration (sec): 60-90 (Sol Parkinson, RN) Duration Criteria: Less than Two 120 Second Contractions (Sol Parkinson, RN) Pattern: Normal: <= 5 Contractions in 10 Minutes (Sol Parkinson, RN) Resting Tone (Palpate): Relaxed (Sol Parkinson, EDILMA) Monitor Mode: External US (Sol Parkinson, EDILMA) FHR Baseline Rate : 145 (Sol Parkinson RN) FHR Baseline Changes: No Baseline Change (Sol Parkinson RN) Variability: Moderate 6-25 bpm (Sol Parkinson, EDILMA) Accelerations: 15X15 (Sol Parkinson, RN) Decelerations: None (Sol Parkinson, EDILAM) Pain Scale: 3 (Sol Parkinson, EDILMA) Pain Presence: Intermittent (Sol Parkinson, EDILMA) Pain Type: Contraction (Sol Parkinson, EDILMA) Pain Location: Abdomen (Sol Parkinson, RN) Pain Goal: 1 (Sol Parkinson, EDILMA) Pain Relief Measures: Comfort Measures (Sol Parkinson, EDILMA) Pain Coping: Breathing Through Contractions (Sol Parkinson, EDILMA) Pitocin (milliunit): Pitocin Increased to (milliunits) @ (Annotations: 4) (Sol Parkinson, EDILMA) LaborFlag: Labor (QS system process)
[2016-04-28] MEDS ORDERED: BUPIVACAINE HCL 0.25 % INJ/PF (2.5 MG/1 ML) 30 ML VIAL INFIL ONE (12:23)
[2016-04-28] MEDS ORDERED: EPHEDRINE SULFATE INJ 50 MG/1 ML AMPULE IV PRN (12:23)
[2016-04-28] MEDS ORDERED: BENZOIN/ALOE VERA/STORAX/TOLU TINCTURE 60 ML TP PRN (12:23)
[2016-04-28] MEDS ORDERED: BUPIVACAINE HCL 0.25 % INJ/PF (2.5 MG/1 ML) 30 ML VIAL ONE (12:26)
[2016-04-28] MEDS ORDERED: EPHEDRINE SULFATE INJ 50 MG/1 ML AMPULE ONE (12:26)
[2016-04-28] MEDS ORDERED: FENTANYL/BUPIVACAINE/NS/PF 200 MCG/100 ML RTUINJ EPI ONE (12:26)
--- NOTE | 2016-04-28 14:00 | L&D Flow Sheet ---
LD Flowsheet Datetime Report Generated by CPN: 04/28/2016 14:00 Datetime: 04/28/2016 13:56 Dilatation (cm): 1.0 (Sol Parkinson RN) Effacement (%): 70 (Sol Parkinson RN) Station: -1 (Sol Parkinson RN) Exam by: Cortney Martinez CNM (Sol Parkinson RN) Vaginal Bleeding: None (Sol Parkinson RN) Cervix, Consistency: Moderate (Sol Parkinson RN) Cervix, Position: Posterior (Sol Parkinson RN) Datetime: 04/28/2016 13:52 NBP Sys/Brissa/Mean (mmHg): 112 (QS system process) : 63 (QS system process) : 81 (QS system process) Pulse: 63 (QS system process) LaborFlag: Labor (QS system process) Datetime: 04/28/2016 13:45 Monitor Mode: External; Palpation (Laverne Darrius, RNC) Frequency (min): 1.5-4 (Laverne Darrius, RNC) Quality: Moderate to Strong (Laverne Darrius, RNC) Duration (sec): 60-90 (Laverne Darrius, RNC) Duration Criteria: Less than Two 120 Second Contractions (Laverne Darrius, RNC) Pattern: Normal: <= 5 Contractions in 10 Minutes (Laverne Darrius, RNC) Resting Tone (Palpate): Relaxed (Laverne Darrius, RNC) Monitor Mode: External US (Laverne Darrius, RNC) FHR Baseline Rate : 135 (Laverne Darrius, RNC) Variability: Moderate 6-25 bpm (Laverne Darrius, RNC) Accelerations: 15X15 (Laverne Darrius, RNC) Decelerations: Early; Variable (Laverne Darrius, RNC) Datetime: 04/28/2016 13:36 NBP Sys/Brissa/Mean (mmHg): 127 (QS system process) : 81 (QS system process) : 99 (QS system process) Pulse: 70 (QS system process) LaborFlag: Labor (QS system process) Datetime: 04/28/2016 13:34 NBP Sys/Brissa/Mean (mmHg): 129 (QS system process) : 73 (QS system process) : 95 (QS system process) Pulse: 66 (QS system process) LaborFlag: Labor (QS system process) Datetime: 04/28/2016 13:32 NBP Sys/Brissa/Mean (mmHg): 130 (QS system process) : 69 (QS system process) : 93 (QS system process) Pulse: 68 (QS system process) LaborFlag: Labor (QS system process) Datetime: 04/28/2016 13:31 I/O Interventions: Cole Cath Inserted (Tasneem Fry RN) Patient Care Comments: Cole catheter inserted using sterile technique. Clear yellow urine noted. Patient tolertaed procedure well. (Tasneem Fry RN) Datetime: 04/28/2016 13:30 NBP Sys/Brissa/Mean (mmHg): 120 (QS system process) : 62 (QS system process) : 84 (QS system process) Pulse: 67 (QS system process) Monitor Mode: External; Palpation (REAGAN Carr) Frequency (min): 1.5-4 (REAGAN Carr) Quality: Moderate (REAGAN Carr) Duration (sec): 50-80 (REAGAN Carr) Duration Criteria: Less than Two 120 Second Contractions (REAGAN Carr) Pattern: Normal: <= 5 Contractions in 10 Minutes (REAGAN Carr) Resting Tone (Palpate): Relaxed (REAGAN Carr) Monitor Mode: External US (REAGAN Carr) FHR Baseline Rate : 135 (Laverne Darrius, RNC) Variability: Moderate 6-25 bpm (Laverne Rizo, RNC) Accelerations: 15X15 (Laverne Rizo, RNC) Decelerations: Variable (Laverne Rizo, RNC) LaborFlag: Labor (QS system process) Datetime: 04/28/2016 13:28 IV/Blood Work: IV Infusing per Order (Tasneemmary Ricolatt, RN) Patient Position/Activity: Right Tilt; Low Fowlers (Tasneem Trishalatt, RN) Datetime: 04/28/2016 13:27 Epidural Procedure Other: Pump Started (Tasneem Marlatt, RN) Datetime: 04/28/2016 13:26 Patient Position/Activity: Right Tilt; Low Fowlers; Supine (Tasneem Marlatt, RN) Datetime: 04/28/2016 13:24 NBP Sys/Brissa/Mean (mmHg): 128 (QS system process) : 73 (QS system process) : 94 (QS system process) Pulse: 73 (QS system process) Pulse: 71 (QS system process) SpO2 (%): 100 (QS system process) LaborFlag: Labor (QS system process) Datetime: 04/28/2016 13:23 Epidural Procedure: Cath Placed (Tasneem Trishalatt, RN) Datetime: 04/28/2016 13:22 Epidural Procedure: Test Dose (Tasneem Fry, RN) Datetime: 04/28/2016 13:19 Pulse: 83 (QS system process) SpO2 (%): 100 (QS system process) LaborFlag: Labor (QS system process) Datetime: 04/28/2016 13:15 Monitor Mode: External; Palpation (REAGAN Carr) Frequency (min): 1.5-3 (REAGAN Carr) Quality: Moderate (REAGAN Carr) Duration (sec): 50-80 (REAGAN Carr) Duration Criteria: Less than Two 120 Second Contractions (REAGAN Carr) Pattern: Normal: <= 5 Contractions in 10 Minutes (REAGAN Carr) Resting Tone (Palpate): Relaxed (Laverne Rizo, RNC) Monitor Mode: External US (Laverne Rizo, RNC) FHR Baseline Rate : 135 (Laverne Darrius, RNC) Variability: Moderate 6-25 bpm (Laverne Darrius, RNC) Accelerations: None (Laverne Darrius, RNC) Decelerations: None (Laverne Darrius, RNC) Datetime: 04/28/2016 13:14 Pulse: 81 (QS system process) SpO2 (%): 100 (QS system process) Procedure Type: epidural (Tasneem Fry RN) Procedure Verify: Correct Patient Identity; Accurate Procedure Consent Form; Agreement on Procedure to be Done; Correct Patient Position (Tasneem Fry RN) Anesthesia Plans: Epidural (Tasneem Fry RN) Epidural Positioning: Sitting (Tasneem Fry RN) Anesthesia Comments: [facility] and explaining procedure to patient (Tasneem Fry RN) LaborFlag: Labor (QS system process) Datetime: 04/28/2016 13:11 Patient Care Comments: patient sitting, ready for epidural (Tasneem Marlatt, RN) Datetime: 04/28/2016 13:08 NBP Sys/Brissa/Mean (mmHg): 138 (QS system process) : 71 (QS system process) : 98 (QS system process) Pulse: 80 (QS system process) LaborFlag: Labor (QS system process) Datetime: 04/28/2016 13:07 Comments: RN at bedside continuosly assessing FHT while epidural being placed (Sol [place], RN) Datetime: 04/28/2016 13:00 Monitor Mode: External; Palpation (Laverne Darrius, RNC) Frequency (min): 1.5-4 (Laverne Darrius, RNC) Quality: Moderate (Laverne Darrius, RNC) Duration (sec): 40-80 (Laverne Darrius, RNC) Duration Criteria: Less than Two 120 Second Contractions (Laverne Darrius, RNC) Pattern: Normal: <= 5 Contractions in 10 Minutes (Laverne Darrius, RNC) Resting Tone (Palpate): Relaxed (Laverne Darrius, RNC) Monitor Mode: External US (Laverne Darrius, RNC) FHR Baseline Rate : 135 (Laverne Darrius, RNC) Variability: Moderate 6-25 bpm (Laverne Darrius, RNC) Accelerations: 15X15 (Laverne Darrius, RNC) Decelerations: None (Laverne Darrius, RNC) Datetime: 04/28/2016 12:49 NBP Sys/Brissa/Mean (mmHg): 122 (QS system process) : 80 (QS system process) : 97 (QS system process) Pulse: 69 (QS system process) Communication Comments: Dr. Kelly notified of patient's request for epidural. (Sol Parkinson RN) LaborFlag: Labor (QS system process) Datetime: 04/28/2016 12:45 Monitor Mode: External; Palpation (Laverne Darrius, RNC) Frequency (min): 1.5-4 (Laverne Darrius, RNC) Quality: Moderate (Laverne Darrius, RNC) Duration (sec): 40-80 (Laverne Darrius, RNC) Duration Criteria: Less than Two 120 Second Contractions (Laverne Darrius, RNC) Pattern: Normal: <= 5 Contractions in 10 Minutes (Laverne Darrius, RNC) Resting Tone (Palpate): Relaxed (Laverne Darrius, RNC) Monitor Mode: External US (Laverne Darrius, RNC) FHR Baseline Rate : 135 (Laverne Darrius, RNC) Variability: Minimal - Undetectable to <=5 bpm (Laverne Darrius, RNC) Accelerations: None (Laverne Darrius, RNC) Decelerations: None (Laverne Darrius, RNC) Datetime: 04/28/2016 12:30 Monitor Mode: External; Palpation (Sol Iggy, RN) Frequency (min): 2-3 (Sol [place], RN) Quality: Moderate (Sol Iggy, RN) Duration (sec): 60-100 (Sol [place], RN) Duration Criteria: Less than Two 120 Second Contractions (Sol [place], RN) Pattern: Tachysystole: > 5 Contractions in 10 Minutes (Sol [place], RN) Resting Tone (Palpate): Relaxed (Sol [place], RN) Monitor Mode: External US (Sol Parkinson RN) FHR Baseline Rate : 130 (Sol Parkinson RN) FHR Baseline Changes: No Baseline Change (Sol Parkinson RN) Variability: Moderate 6-25 bpm (Sol Parkinson RN) Accelerations: 15X15 (Sol Parkinson RN) Decelerations: None (Sol Parkinson RN) Pitocin (milliunit): Pitocin Remains (milliunits) @ (Annotations: 10) (Sol Parkinson RN) Communication: RN at Bedside (Sol Parkinson RN) Datetime: 04/28/2016 12:19 Stage of : Labor (Sol Parkinson RN) NBP Sys/Brissa/Mean (mmHg): 123 (QS system process) : 65 (QS system process) : 87 (QS system process) Pulse: 73 (QS system process) Respirations: 18 (Sol Parkinson RN) LaborFlag: Labor (QS system process) Datetime: 04/28/2016 12:18 Stage of : Labor (Sol Parkinson RN) IV/Blood Work: IV Bolus Started (Sol Parkinson, RN) Provider Reviewed Strip: Yes (Sol Parkinson, RN) Communication: Provider Orders Received (Sol Parkinson, RN) Provider Notified (Name): Cortney Martinez CNM on unit, notified of patient increased pain and request for epidural. Orders received. (Sol Parkinson, RN) Notification Reason: Status Update; Status; Labor Status; Pain (Sol Parkinson, EDILMA) Datetime: 04/28/2016 12:15 Monitor Mode: External (Sol Parkinson, EDILMA) Frequency (min): 2-2.5 (Sol Parkinson, EDILMA) Quality: Moderate (Sol Parkinson RN) Duration (sec): 50-90 (Sol Parkinson, EDILMA) Duration Criteria: Less than Two 120 Second Contractions (Sol Parkinson, EDILMA) Pattern: Normal: <= 5 Contractions in 10 Minutes (Sol Parkinson, RN) Resting Tone (Palpate): Relaxed (Sol Parkinson, RN) Monitor Mode: External US (Sol Parkinson, EDILMA) FHR Baseline Rate : 130 (Sol Parkinson RN) FHR Baseline Changes: No Baseline Change (Sol Parkinson, RN) Variability: Moderate 6-25 bpm (Sol Parkinson, RN) Accelerations: 15X15 (Sol Parkinson, RN) Decelerations: None (Sol Parkinson, EDILMA) Pitocin (milliunit): Pitocin Increased to (milliunits) @ (Annotations: 10) (Sol Parkinson, RN) Datetime: 04/28/2016 12:00 Monitor Mode: External (Sol Parkinson, EDILMA) Frequency (min): 1-4.5 (Sol Parkinson RN) Quality: Moderate (Sol Parkinson, EDILMA) Duration (sec): 40-60 (Sol Parkinson, EDILMA) Duration Criteria: Less than Two 120 Second Contractions (Sol Parkinson, EDILMA) Pattern: Normal: <= 5 Contractions in 10 Minutes (Sol Parkinson RN) Resting Tone (Palpate): Relaxed (Sol Parkinson, EDILMA) Monitor Mode: External US (Sol Parkinson, EDILMA) FHR Baseline Rate : 135 (Sol Parkinson RN) FHR Baseline Changes: No Baseline Change (Sol Parkinson, EDILMA) Variability: Moderate 6-25 bpm (Sol Parkinson, EDILMA) Accelerations: 15X15 (Sol Parkinson, EDILMA) Decelerations: None (Sol Parkinson, EDILMA) Pain Scale: 4 (Sol Parkinson RN) Pain Presence: Intermittent (Sol Parkinson RN) Pain Type: Contraction (Sol Parkinson, EDILMA) Pain Location: Abdomen; Back (Sol Parkinson, EDILMA) Pain Goal: 1 (Sol Parkinson RN) Pain Relief Measures: Comfort Measures (Sol Parkinson RN) Pain Coping: Requesting Pain Medication or Epidural (Sol Parkinson RN) Pitocin (milliunit): Pitocin Remains (milliunits) @ (Annotations: 8) (Sol Parkinson RN) Comfort Measures: Breathing/Relaxation; Family Support (Sol Parkinson RN) LaborFlag: Labor (QS system process)
--- NOTE | 2016-04-28 14:13 | L&D Progress Notes ---
PROGRESS NOTES Datetime Report Generated by CPN: 04/28/2016 14:13 PROGRESS NOTE Impression: Reassuring Heart Rate Procedures: Sterile Vag Exam Plan: Continue Present Management Vital Signs : Reviewed; Within Normal Limits Comment: SVE after epidural placement. Cx firm. VAGINAL EXAM Dilatation: 1 Dilatation: 0 Effacement: 70 Effacement: 0 Station: -2 Station: -3 MEMBRANES Membranes: Intact FETUS A Monitoring: External US : 40.1 Presentation: Vertex SIGNATURE SIGNATURE: [id number] SIGNATURE: [id number] Assignment: Cayden Chappell DO Signature: with User ID: PJones : with User ID: [email or web address] : I personally evaluated and examined the patient in conjunction with the MLP and agree with the assessment, treatment plan and disposition.
--- NOTE | 2016-04-28 16:00 | L&D Flow Sheet ---
LD Flowsheet Datetime Report Generated by CPN: 04/28/2016 16:00 Datetime: 04/28/2016 15:55 Medications Pitocin (milliunit): Pitocin Increased to (milliunits) @ (Annotations: 12) (Sol Itawamba, RN) Datetime: 04/28/2016 15:53 Vital Signs Stage of : Labor (Sol Parkinson, RN) NBP Sys/Brissa/Mean (mmHg): 104 (QS system process) : 56 (QS system process) : 75 (QS system process) Pulse: 57 (QS system process) Respirations: 12 (Sol Parkinson, RN) LaborFlag: Labor (QS system process) Datetime: 04/28/2016 15:45 Medications Pitocin (milliunit): Pitocin Remains (milliunits) @ (Annotations: 10) (Sol Itawamba, RN) Datetime: 04/28/2016 15:36 NBP Sys/Brissa/Mean (mmHg): 96 (QS system process) : 56 (QS system process) : 71 (QS system process) Pulse: 60 (QS system process) LaborFlag: Labor (QS system process) Datetime: 04/28/2016 15:30 Uterine Activity Monitor Mode: External (Sol Itawamba, RN) Frequency (min): 1-4 (Sol Iggy, RN) Quality: Moderate (Sol Iggy, RN) Duration (sec): 50-80 (Sol Itawamba, RN) Duration Criteria: Less than Two 120 Second Contractions (Sol Iggy, RN) Pattern: Normal: <= 5 Contractions in 10 Minutes (Osl Itawamba, RN) Resting Tone (Palpate): Relaxed (Sol Itawamba, RN) Assessment A Monitor Mode: External US (Sol Itawamba, RN) FHR Baseline Rate : 130 (Sol Iggy, RN) FHR Baseline Changes: No Baseline Change (Sol Itawamba, RN) Variability: Moderate 6-25 bpm (Sol Itawamba, RN) Accelerations: 15X15 (Sol Itawamba, RN) Decelerations: None (Sol Iggy, RN) Comments: reports positive mvmt (Osl Itawamba, RN) Medications Pitocin (milliunit): Pitocin Remains (milliunits) @ (Annotations: 10) (Sol Itawamba, RN) Datetime: 04/28/2016 15:23 Vital Signs Stage of : Labor (Sol Itawamba, RN) NBP Sys/Brissa/Mean (mmHg): 94 (QS system process) : 52 (QS system process) : 68 (QS system process) Pulse: 56 (QS system process) Respirations: 14 (Sol Iggy, RN) Communication Communication: Report Given to @ Cortney Martinez CNM (Sol Reaganard, RN) Communication Comments: Cortney Martinez CNM notified of patient complaint of mild headache. Orders for cold compress on head if needed (Sol Reaganard, RN) LaborFlag: Labor (QS system process) Datetime: 04/28/2016 15:18 Patient Care IV/Blood Work: IV Infusing per Order (Sol Iggy, RN) Patient Position/Activity: Left Lateral; Peanut Ball (Sol Reaganard, RN) Datetime: 04/28/2016 15:15 Uterine Activity Monitor Mode: External (Sol Iggy, RN) Frequency (min): 2-3 (Sol Itawamba, RN) Quality: Mild/Moderate (Sol Itawamba, RN) Duration (sec): 80-100 (Sol Itawamba, RN) Duration Criteria: Less than Two 120 Second Contractions (Sol Iggy, RN) Pattern: Normal: <= 5 Contractions in 10 Minutes (Sol Iggy, RN) Resting Tone (Palpate): Relaxed (Sol Iggy, RN) Assessment A Monitor Mode: External US (Sol Itawamba, RN) FHR Baseline Rate : 125 (Sol Itawamba, RN) FHR Baseline Changes: No Baseline Change (Sol Itawamba, RN) Variability: Moderate 6-25 bpm (Sol Itawamba, RN) Accelerations: 15X15 (Sol Itawamba, RN) Decelerations: None (Sol Itawamba, RN) Medications Pitocin (milliunit): Pitocin Increased to (milliunits) @ (Annotations: 10) (Sol Reaganard, RN) Datetime: 04/28/2016 15:06 NBP Sys/Brissa/Mean (mmHg): 114 (QS system process) : 63 (QS system process) : 83 (QS system process) Pulse: 67 (QS system process) LaborFlag: Labor (QS system process) Datetime: 04/28/2016 15:00 Uterine Activity Monitor Mode: External (Sol Itawamba, RN) Frequency (min): 2-4 (Sol Iggy, RN) Quality: Moderate (Sol Itawamba, RN) Duration (sec): 70-90 (Sol Iggy, RN) Duration Criteria: Less than Two 120 Second Contractions (Sol Itawamba, RN) Pattern: Normal: <= 5 Contractions in 10 Minutes (Sol Itawamba, RN) Resting Tone (Palpate): Relaxed (Sol Itawamba, RN) Assessment A Monitor Mode: External US (Sol Itawamba, RN) FHR Baseline Rate : 125 (Sol Iggy, RN) FHR Baseline Changes: No Baseline Change (Sol Itawamba, RN) Variability: Moderate 6-25 bpm (Sol Iggy, RN) Accelerations: 15X15 (Sol Iggy, RN) Decelerations: None (Sol Itawamba, RN) Medications Pitocin (milliunit): Pitocin Remains (milliunits) @ (Annotations: 8) (Sol Itawamba, RN) Datetime: 04/28/2016 14:54 NBP Sys/Brissa/Mean (mmHg): 115 (QS system process) : 63 (QS system process) : 83 (QS system process) Pulse: 68 (QS system process) LaborFlag: Labor (QS system process) Datetime: 04/28/2016 14:45 Uterine Activity Monitor Mode: External (Sol Itawamba, RN) Frequency (min): 2-3.5 (Sol Iggy, RN) Quality: Moderate (Sol Itawamba, RN) Duration (sec): 90-100 (Sol Iggy, RN) Duration Criteria: Less than Two 120 Second Contractions (Sol Itawamba, RN) Pattern: Normal: <= 5 Contractions in 10 Minutes (Sol Iggy, RN) Resting Tone (Palpate): Relaxed (Sol Iggy, RN) Assessment A Monitor Mode: External US (Sol Itawamba, RN) FHR Baseline Rate : 130 (Sol Iggy, RN) FHR Baseline Changes: No Baseline Change (Sol Itawamba, RN) Variability: Moderate 6-25 bpm (Sol Itawamba, RN) Accelerations: 15X15 (Sol Itawamba, RN) Decelerations: None (Sol Iggy, RN) Medications Pitocin (milliunit): Pitocin Remains (milliunits) @ (Annotations: 8) (Sol Parkinson, RN) Datetime: 04/28/2016 14:38 Vital Signs Stage of : Labor (Sol Parkinson, EDILMA) NBP Sys/Brissa/Mean (mmHg): 118 (QS system process) : 64 (QS system process) : 85 (QS system process) Pulse: 74 (QS system process) Respirations: 14 (Sol Parkinson, EDILMA) LaborFlag: Labor (QS system process) Datetime: 04/28/2016 14:30 Uterine Activity Monitor Mode: External (Sol Iggy, RN) Frequency (min): 2.5-3 (Sol Itawamba, RN) Quality: Moderate (Sol Itawamba, RN) Duration (sec): 70-120 (Sol Itawamba, RN) Duration Criteria: Less than Two 120 Second Contractions (Sol Itawamba, RN) Pattern: Normal: <= 5 Contractions in 10 Minutes (Sol Itawamba, RN) Resting Tone (Palpate): Relaxed (Sol Itawamba, RN) Assessment A Monitor Mode: External US (Sol Itawamba, RN) FHR Baseline Rate : 125 (Sol Iggy, RN) FHR Baseline Changes: No Baseline Change (Sol Itawamba, RN) Variability: Moderate 6-25 bpm (Sol Iggy, RN) Accelerations: 15X15 (Sol Itawamba, RN) Decelerations: Variable (Sol Parkinson, RN) Medications Pitocin (milliunit): Pitocin Remains (milliunits) @ (Annotations: 8) (Sol Parkinson, RN) Datetime: 04/28/2016 14:22 Vital Signs Stage of : Labor (Sol Reaganard, RN) NBP Sys/Brissa/Mean (mmHg): 119 (QS system process) : 69 (QS system process) : 89 (QS system process) Pulse: 67 (QS system process) Respirations: 14 (Sol Parkinson, RN) LaborFlag: Labor (QS system process) Datetime: 04/28/2016 14:15 Uterine Activity Monitor Mode: External (Sol Parkinson, RN) Frequency (min): 2-3 (Sol Parkinson, RN) Quality: Moderate (Sol Parkinson, RN) Duration (sec): 90-120 (Sol Parkinson, RN) Duration Criteria: Less than Two 120 Second Contractions (Sol Parkinson, RN) Pattern: Normal: <= 5 Contractions in 10 Minutes (Sol Parkinson, RN) Resting Tone (Palpate): Relaxed (Sol Parkinson, RN) Assessment A Monitor Mode: External US (Sol Iggy, RN) FHR Baseline Rate : 125 (Sol Itawamba, RN) FHR Baseline Changes: No Baseline Change (Sol Itawamba, RN) Variability: Moderate 6-25 bpm (Sol Iggy, RN) Accelerations: 15X15 (Sol Itawamba, RN) Decelerations: None (Sol Itawamba, RN) Comments: reports positive mvmt (Sol Itawamba, RN) Medications Pitocin (milliunit): Pitocin Remains (milliunits) @ (Annotations: 8) (Sol Itawamba, RN) Datetime: 04/28/2016 14:07 Vital Signs Stage of : Labor (Sol Itawamba, RN) NBP Sys/Brissa/Mean (mmHg): 117 (QS system process) : 68 (QS system process) : 86 (QS system process) Pulse: 68 (QS system process) Respirations: 12 (Sol Itawamba, RN) LaborFlag: Labor (QS system process) Datetime: 04/28/2016 14:00 Vital Signs Stage of : Labor (Sol Itawamba, RN) Uterine Activity Monitor Mode: External (Sol Itawamba, RN) Frequency (min): 3-4 (Sol Itawamba, RN) Quality: Moderate (Sol Itawamba, RN) Duration (sec): 60-120 (Sol Iggy, RN) Duration Criteria: Less than Two 120 Second Contractions (Sol Iggy, RN) Pattern: Normal: <= 5 Contractions in 10 Minutes (Sol Itawamba, RN) Resting Tone (Palpate): Relaxed (Sol Itawamba, RN) Assessment A Monitor Mode: External US (Sol Itawamba, RN) FHR Baseline Rate : 125 (Sol Itawamba, RN) FHR Baseline Changes: No Baseline Change (Sol Itawamba, RN) Variability: Moderate 6-25 bpm (Sol Itawamba, RN) Accelerations: 15X15 (Sol Iggy, RN) Decelerations: None (Sol Itawamba, RN) Pain Pain Scale: 0 (Sol Parkinson RN) Pain Presence: None/Denies (Sol Parkinson RN) Pain Type: N/A (Sol Parkinson RN) Pain Goal: 1 (Sol Parkinson RN) Pain Relief Measures: Epidural Given; Comfort Measures (Sol Parkinson RN) Pain Coping: Talking Through Contractions (Sol Parkinson RN) Medications Pitocin (milliunit): Pitocin Remains (milliunits) @ (Annotations: 8) (Sol Parkinson RN) LaborFlag: Labor (QS system process)
--- NOTE | 2016-04-28 18:00 | L&D Flow Sheet ---
LD Flowsheet Datetime Report Generated by CPN: 04/28/2016 18:00 Datetime: 04/28/2016 17:52 Stage of : Labor (Sol Parkinson RN) NBP Sys/Brissa/Mean (mmHg): 122 (QS system process) : 79 (QS system process) : 95 (QS system process) Pulse: 97 (QS system process) Respirations: 12 (Sol Parkinson RN) LaborFlag: Labor (QS system process) Datetime: 04/28/2016 17:51 Patient Care Comments: Patient eating light dinner (Sol Parkinson, RN) Datetime: 04/28/2016 17:45 Monitor Mode: External (Tasneem Fry RN) Frequency (min): 2-4 (Tasneem Fry, RN) Quality: Moderate (Tasneem Fry, RN) Duration (sec): 70-100 (Tasneem Fry, RN) Resting Tone (Palpate): Relaxed (Tasneem Fry, RN) Monitor Mode: External US (Tasneem Fry, RN) FHR Baseline Rate : 135 (Tasneem Fry, RN) Variability: Moderate 6-25 bpm (Tasneem Ricolatt, RN) Decelerations: None (Tasneem Ricolatt, RN) Datetime: 04/28/2016 17:36 Stage of : Labor (Sol Parkinson RN) NBP Sys/Brissa/Mean (mmHg): 114 (QS system process) : 73 (QS system process) : 87 (QS system process) Pulse: 80 (QS system process) Respirations: 15 (Sol Lincoln, RN) LaborFlag: Labor (QS system process) Datetime: 04/28/2016 17:34 Patient Care Comments: Knee length SCD applied bilaterally (Sol Reaganard, RN) Datetime: 04/28/2016 17:33 Pitocin (milliunit): Pitocin Discontinued (Sol Reaganard, RN) Datetime: 04/28/2016 17:30 Monitor Mode: External (Tasneem Fry RN) Frequency (min): 1-3 (Tasneem Marlatt, RN) Quality: Moderate (Tasneem Fry RN) Duration (sec): 50-90 (Tasneem Fry RN) Resting Tone (Palpate): Relaxed (Tasneem Fry RN) Monitor Mode: External US (Tasneem Fry RN) FHR Baseline Rate : 130 (Tasneem Fry RN) Variability: Moderate 6-25 bpm (Tasneem Fry RN) Accelerations: 15X15 (Tasneem Fry RN) Decelerations: Early (Tasneem Fry RN) Pitocin (milliunit): Pitocin Remains (milliunits) @ 16 (Tasneem Fry RN) Datetime: 04/28/2016 17:21 Stage of : Labor (Sol Parkinson RN) NBP Sys/Brissa/Mean (mmHg): 115 (QS system process) : 73 (QS system process) : 88 (QS system process) Pulse: 67 (QS system process) Dilatation (cm): 1.0 (Sol Parkinson, RN) Effacement (%): 70 (Sol Parkinson, RN) Station: -1 (Sol Parkinson, RN) Exam by: Dr. Chappell (Sol Parkinson, RN) Vaginal Bleeding: None (Sol Parkinson, RN) Cervix, Consistency: Moderate (Sol Parkinson, RN) Cervix, Position: Posterior (Sol Parknison, RN) Provider Reviewed Strip: Yes (Sol Parkinson, RN) Communication: Provider at Bedside (Sol Parkinson, EDILMA) Provider Notified (Name): Dr. Chappell at [facility] to discuss options of either discontinuing epidural or placing epidural on hold to allow patient to regain feeling and resume normal activity due to no cervical change despite pitocin infusion for the past 10 hours. Options given included removing epidural completely and replacing once active labor resumed, leaving catheter in place and stopping pump/infusion, or conitnuing current plan of care. Provider also discussed turning pitocin off and placing cervidil tonight with epidural in place. Patient expressed concern regarding increased pain if epidural was discontinued and was reassurred that IV pain medication could be given if needed. Patient stated she is not comfortable having the epidural turned off or removed at this time despite Dr. Barahona's explnanation of risks versus benefits. Patient and family member offered time to ask questions, which Dr. Chappell answered. Patient and family member verbalized understanding and agrees to plan of care. Orders received to continue epidural, discontonue Pitocin, place SCD's bilaterally, and allow patient to eat a light breakfast. (Sol Parkinson, EDILMA) Notification Reason: Status Update; Status; Labor Status; Membrane Status; Uterine Activity; Pain; Maternal Vital Sign Change; Other (Sol Parkinson, EDILMA) LaborFlag: Labor (QS system process) Datetime: 04/28/2016 17:15 Monitor Mode: External (Tasneem Fry RN) Frequency (min): 1-4.5 (Tasneem Fry RN) Quality: Moderate (Tasneem Fry RN) Duration (sec): 60-110 (Tasneem Fry RN) Resting Tone (Palpate): Relaxed (Tasneem Fry RN) Monitor Mode: External US (Tasneem Fry RN) FHR Baseline Rate : 130 (Tasneem Fry RN) Variability: Moderate 6-25 bpm (Tasenem Fry, RN) Accelerations: 15X15 (Tasneem Fry, RN) Decelerations: Early (Tasneem Fry RN) Pitocin (milliunit): Pitocin Remains (milliunits) @ 16 (Tasneem Fry, RN) Datetime: 04/28/2016 17:12 Stage of : Labor (Sol Parkinson RN) Communication: Call/Page Placed to Provider (Sol Parkinson RN) Provider Notified (Name): Dr. Kelly called as instructed by Dr. Chappell to discuss options of either discontinuing epidural or placing epidural on hold to allow patient to regain feeling and resume normal activity due to no cervical change despite pitocin infusion for the past 10 hours. Options given included removing epidural completely and replacing once active labor resumed or leaving catheter in place and stopping pump/infusion. (Sol Parkinson RN) Datetime: 04/28/2016 17:08 NBP Sys/Brissa/Mean (mmHg): 116 (QS system process) : 71 (QS system process) : 89 (QS system process) Pulse: 62 (QS system process) LaborFlag: Labor (QS system process) Datetime: 04/28/2016 17:00 Monitor Mode: External (Sol Parkinson, EDILMA) Frequency (min): 1-4 (Sol Parkinson, EDILMA) Quality: Moderate (Sol Parkinson RN) Duration (sec): 40-100 (Sol Parkinson, EDILMA) Duration Criteria: Less than Two 120 Second Contractions (Sol Parkinson, EDILMA) Pattern: Normal: <= 5 Contractions in 10 Minutes (Sol Parkinson, RN) Resting Tone (Palpate): Relaxed (Sol Parkinson, EDILMA) Contraction Comments: irregular pattern; couplets noted (Sol Parkinson, EDILMA) Monitor Mode: External US (Sol Parkinson, EDILMA) FHR Baseline Rate : 125 (Sol Parkinson, RN) FHR Baseline Changes: No Baseline Change (Sol Parkinson, EDILMA) Variability: Moderate 6-25 bpm (Sol Parkinson, RN) Accelerations: 15X15 (Sol Parkinson, RN) Decelerations: None (Sol Parkinson, RN) Pitocin (milliunit): Pitocin Remains (milliunits) @ (Annotations: 16) (Sol Parkinson, EDILMA) Datetime: 04/28/2016 16:52 Stage of : Labor (Sol Parkinson RN) NBP Sys/Brissa/Mean (mmHg): 117 (QS system process) : 75 (QS system process) : 91 (QS system process) Pulse: 61 (QS system process) Respirations: 14 (Sol Parkinson RN) LaborFlag: Labor (QS system process) Datetime: 04/28/2016 16:46 Stage of : Labor (Sol Parkinson RN) Provider Reviewed Strip: Yes (Sol Parkinson RN) Provider Notified (Name): Dr. Chappell (Sol Parkinson, RN) Notification Reason: Status Update; Status; Labor Status; Membrane Status; Uterine Activity; Pain (Sol Parkinson, EDILMA) Communication Comments: Notified of patient status, unchanged cervical exam, epidural in place, reviewed FHT strip. Orders received to continue pitocin infusion as ordered. (Sol Parkinson RN) Datetime: 04/28/2016 16:45 Monitor Mode: External (Sol Parkinson, RN) Frequency (min): 1.5-4 (Sol Parkinson, RN) Quality: Moderate (Sol Reaganard, RN) Duration (sec): 40-70 (Sol Lincoln, RN) Duration Criteria: Less than Two 120 Second Contractions (Sol Parkinson, RN) Pattern: Normal: <= 5 Contractions in 10 Minutes (Sol Reaganard, RN) Resting Tone (Palpate): Relaxed (Sol Parkinson, RN) Monitor Mode: External US (Sol Parkinson, RN) FHR Baseline Rate : 125 (Sol Parkinson, RN) FHR Baseline Changes: No Baseline Change (Sol Parkinson, RN) Variability: Moderate 6-25 bpm (Sol Lincoln, RN) Accelerations: 15X15 (Sol Lincoln, RN) Decelerations: None (Sol Parkinson, RN) Pitocin (milliunit): Pitocin Remains (milliunits) @ (Annotations: 14) (Sol Parkinson, RN) Datetime: 04/28/2016 16:37 NBP Sys/Brissa/Mean (mmHg): 122 (QS system process) : 79 (QS system process) : 96 (QS system process) Pulse: 75 (QS system process) LaborFlag: Labor (QS system process) Datetime: 04/28/2016 16:30 Monitor Mode: External (Sol Parkinson, RN) Frequency (min): 2-4 (Sol Parkinson, RN) Quality: Moderate (Sol Reaganard, RN) Duration (sec): 60-120 (Sol Parkinson, RN) Duration Criteria: Less than Two 120 Second Contractions (Sol Parkinson, RN) Pattern: Normal: <= 5 Contractions in 10 Minutes (Sol Parkinson, RN) Resting Tone (Palpate): Relaxed (Sol Parkinson, RN) Monitor Mode: External US (Sol Parkinson, RN) FHR Baseline Rate : 120 (Sol Parkinson, RN) FHR Baseline Changes: No Baseline Change (Sol Parkinson, RN) Variability: Moderate 6-25 bpm (Sol Reaganard, RN) Accelerations: 15X15 (Sol Reaganard, RN) Decelerations: Early (Sol Parkinson, RN) Pitocin (milliunit): Pitocin Increased to (milliunits) @ (Annotations: 14) (Sol Parkinson, RN) Datetime: 04/28/2016 16:22 NBP Sys/Brissa/Mean (mmHg): 125 (QS system process) : 80 (QS system process) : 98 (QS system process) Pulse: 60 (QS system process) LaborFlag: Labor (QS system process) Datetime: 04/28/2016 16:15 Monitor Mode: External (Sol Parkinson, EDILMA) Frequency (min): 1.5-5 (Sol Parkinson, EDILMA) Quality: Moderate (Sol Parkinson, RN) Duration (sec): 60-70 (Sol Parkinson, RN) Duration Criteria: Less than Two 120 Second Contractions (Sol Parkinson, RN) Pattern: Normal: <= 5 Contractions in 10 Minutes (Sol Parkinson, RN) Resting Tone (Palpate): Relaxed (Sol Parkinson, RN) Monitor Mode: External US (Sol Parkinson, RN) FHR Baseline Rate : 125 (Sol Parkinson, EDILMA) FHR Baseline Changes: No Baseline Change (Sol Parkinson, EDILMA) Variability: Moderate 6-25 bpm (Sol Parkinson, RN) Accelerations: 15X15 (Sol Parkinson, RN) Decelerations: Variable (Sol Parkinson, RN) Pitocin (milliunit): Pitocin Remains (milliunits) @ (Annotations: 12) (Sol Parkinson, EDILMA) Provider Notified (Name): Cortney Martinez CNM on unit; reviewed strip (Sol Parkinson, RN) Datetime: 04/28/2016 16:08 Stage of : Labor (Sol Parkinson RN) NBP Sys/Brissa/Mean (mmHg): 114 (QS system process) : 75 (QS system process) : 87 (QS system process) Pulse: 64 (QS system process) Vital Sign Comments: 14 (Sol Parkinson RN) LaborFlag: Labor (QS system process) Datetime: 04/28/2016 16:00 Stage of : Labor (Sol Parkinson RN) Temperature (F): 97.8 (Sol Parkinson RN) Temperature (C): 36.6 (QS system process) Temperature Route: Oral (Sol Parkinson RN) Monitor Mode: External (Sol Parkinson RN) Frequency (min): 2.5-3.5 (Sol Parkinson RN) Quality: Moderate (Sol Parkinson RN) Duration (sec): 50-80 (Sol Parkinson RN) Duration Criteria: Less than Two 120 Second Contractions (Sol Parkinson RN) Pattern: Normal: <= 5 Contractions in 10 Minutes (Sol Parkinson RN) Resting Tone (Palpate): Relaxed (Sol Parkinson RN) Monitor Mode: External US (Sol Parkinson RN) FHR Baseline Rate : 125 (Sol Parkinson RN) FHR Baseline Changes: No Baseline Change (Sol Parkinson RN) Variability: Moderate 6-25 bpm (Sol Parkinson RN) Accelerations: 15X15 (Sol Parkinson RN) Decelerations: None (Sol Parkinson RN) LaborFlag: Labor (QS system process)
[2016-04-28] MEDS ORDERED: DEXTROSE 5%-LACTATED RINGERS 1,000 ML IV PRN ×2 (18:35→19:00)
[2016-04-28] MEDS ORDERED: DINOPROSTONE 10 MG VAGINAL INSERT.SR ONE (19:40)
--- NOTE | 2016-04-28 20:00 | L&D Flow Sheet ---
LD Flowsheet Datetime Report Generated by CPN: 04/28/2016 20:00 Datetime: 04/28/2016 19:51 NBP Sys/Brissa/Mean (mmHg): 101 (QS system process) : 56 (QS system process) : 75 (QS system process) Pulse: 72 (QS system process) LaborFlag: Labor (QS system process) Datetime: 04/28/2016 19:21 NBP Sys/Brissa/Mean (mmHg): 119 (QS system process) : 71 (QS system process) : 90 (QS system process) Pulse: 65 (QS system process) LaborFlag: Labor (QS system process) Datetime: 04/28/2016 19:00 Monitor Mode: External (Sol Parkinson RN) Frequency (min): x2 (Sol Parkinson, RN) Duration (sec): 90/100 (Sol Parkinson, RN) Resting Tone (Palpate): Relaxed (Sol Parkinson, EDILMA) Monitor Mode: External US (Sol Parkinson, EDILMA) FHR Baseline Rate : 120 (Sol Parkinson, RN) FHR Baseline Changes: No Baseline Change (Sol Parkinson, RN) Variability: Moderate 6-25 bpm (Sol Parkinson, RN) Accelerations: None (Sol Parkinson, RN) Decelerations: None (Sol Parkinson, RN) Actions for Decelerations: Side to Side (Sol Parkinson, RN) IV/Blood Work: IV Infusing per Order (Sol Parkinson, RN) Patient Position/Activity: Left Lateral; Low Fowlers (Sol Parkinson, RN) Datetime: 04/28/2016 18:50 Stage of : Labor (Sol Parkinson, EDILMA) NBP Sys/Brissa/Mean (mmHg): 114 (QS system process) : 68 (QS system process) : 86 (QS system process) Pulse: 81 (QS system process) Respirations: 14 (Sol Parkinson RN) LaborFlag: Labor (QS system process) Datetime: 04/28/2016 18:45 Monitor Mode: External (Sol Parkinson, EDILMA) Frequency (min): 5.5-6 (Sol Parkinson, RN) Quality: Moderate (Sol Parkinson, RN) Duration (sec): 60-80 (Sol Parkinson, RN) Duration Criteria: Less than Two 120 Second Contractions (Sol Parkinson, RN) Pattern: Normal: <= 5 Contractions in 10 Minutes (Sol Parkinson, RN) Resting Tone (Palpate): Relaxed (Sol Parkinson, RN) Monitor Mode: External US (Sol Parkinson, RN) FHR Baseline Rate : 120 (Sol Parkinson RN) FHR Baseline Changes: No Baseline Change (Sol Parkinson, RN) Variability: Moderate 6-25 bpm (Sol Parkinson, RN) Accelerations: 10X10 (Sol Parkinson, RN) Decelerations: None (Sol Parkinson, RN) Datetime: 04/28/2016 18:36 Stage of : Labor (Sol Parkinson RN) NBP Sys/Brissa/Mean (mmHg): 102 (QS system process) : 71 (QS system process) : 81 (QS system process) Pulse: 101 (QS system process) Respirations: 12 (Sol Parkinson RN) Pain Scale: 0 (Sol Parkinson RN) Pain Presence: None/Denies (Sol Parkinson RN) Pain Type: N/A (Sol Parkinson RN) Pain Goal: 1 (Sol Parkinson RN) Pain Relief Measures: Comfort Measures (Sol Parkinson RN) Pain Coping: Sleeping (Sol Parkinson RN) LaborFlag: Labor (QS system process) Datetime: 04/28/2016 18:30 Monitor Mode: External (Sol Parkinson RN) Frequency (min): 3.5-4 (Sol Parkinson RN) Quality: Moderate (Sol Parkinson RN) Duration (sec): 60-100 (Sol Parkinson RN) Duration Criteria: Less than Two 120 Second Contractions (Sol Parkinson RN) Pattern: Normal: <= 5 Contractions in 10 Minutes (Sol Parkinson RN) Resting Tone (Palpate): Relaxed (Sol Parkinson RN) Monitor Mode: External US (Sol Parkinson RN) FHR Baseline Rate : 120 (Sol Parkinson RN) FHR Baseline Changes: No Baseline Change (Sol Iggy, RN) Variability: Moderate 6-25 bpm (oSl Reaganard, RN) Accelerations: 15X15 (Sol Iggy, RN) Decelerations: None (Sol Parkinson, RN) Comments: reports positive movement (Sol Parkinson, RN) Datetime: 04/28/2016 18:22 Stage of : Labor (Sol Parkinson, RN) NBP Sys/Brissa/Mean (mmHg): 106 (QS system process) : 73 (QS system process) : 86 (QS system process) Pulse: 108 (QS system process) Respirations: 14 (Sol Parkinson, RN) LaborFlag: Labor (QS system process) Datetime: 04/28/2016 18:15 Monitor Mode: External (Sol Parkinson, RN) Frequency (min): 5-6 (Sol Parkinson, RN) Quality: Moderate (Sol Reaganard, RN) Duration (sec): 50-80 (Sol Reaganard, RN) Duration Criteria: Less than Two 120 Second Contractions (Sol Parkinson, RN) Pattern: Normal: <= 5 Contractions in 10 Minutes (Sol Iggy, RN) Resting Tone (Palpate): Relaxed (Sol Parkinson RN) Monitor Mode: External US (Sol Parkinson RN) FHR Baseline Rate : 125 (Sol Parkinson RN) FHR Baseline Changes: No Baseline Change (Sol Parkinson RN) Variability: Moderate 6-25 bpm (Sol Parkinson, RN) Accelerations: 15X15 (Sol Parkinson, RN) Decelerations: None (Sol Parkinson, RN) Datetime: 04/28/2016 18:07 Stage of : Labor (Sol Parkinson RN) NBP Sys/Brissa/Mean (mmHg): 124 (QS system process) : 77 (QS system process) : 96 (QS system process) Pulse: 70 (QS system process) Respirations: 14 (Sol Parkinson RN) LaborFlag: Labor (QS system process) Datetime: 04/28/2016 18:00 Temperature (F): 98.0 (Sol Parkinson RN) Temperature (C): 36.7 (QS system process) Monitor Mode: External (Sol Parkinson RN) Frequency (min): 2-3.5 (Sol Parkinson RN) Quality: Moderate (Sol Parkinson RN) Duration (sec): 60-100 (Sol Parkinson, EDILMA) Duration Criteria: Less than Two 120 Second Contractions (Sol Parkinson RN) Pattern: Normal: <= 5 Contractions in 10 Minutes (Sol Parkinson RN) Resting Tone (Palpate): Relaxed (Sol Parkinson, EDILMA) Monitor Mode: External US (Sol Parkinson RN) FHR Baseline Rate : 125 (Sol Parkinson RN) FHR Baseline Changes: No Baseline Change (Sol Parkinson, EDILMA) Variability: Moderate 6-25 bpm (Sol Parkinson, EDILMA) Accelerations: 15X15 (Sol Parkinson, EDILMA) Decelerations: None (Sol Parkinson RN) Provider Reviewed Strip: Yes (Sol Parkinson RN) Provider Notified (Name): Dr. Chappell on unit (Sol Parkinson RN) LaborFlag: Labor (QS system process)
--- NOTE | 2016-04-28 22:01 | L&D Flow Sheet ---
LD Flowsheet Datetime Report Generated by CPN: 04/28/2016 22:00 Datetime: 04/28/2016 21:55 Monitor Interventions for UA: [place] Adjusted (Radha Kossmann, RN) Datetime: 04/28/2016 21:51 NBP Sys/Brissa/Mean (mmHg): 110 (QS system process) : 58 (QS system process) : 78 (QS system process) Pulse: 71 (QS system process) LaborFlag: Labor (QS system process) Datetime: 04/28/2016 21:20 NBP Sys/Brissa/Mean (mmHg): 97 (QS system process) : 51 (QS system process) : 69 (QS system process) Pulse: 66 (QS system process) LaborFlag: Labor (QS system process) Datetime: 04/28/2016 20:50 NBP Sys/Brissa/Mean (mmHg): 103 (QS system process) : 55 (QS system process) : 74 (QS system process) Pulse: 65 (QS system process) LaborFlag: Labor (QS system process) Datetime: 04/28/2016 20:30 Monitor Mode: External; Palpation (Radha Kossmann, RN) Frequency (min): occasional (Radha Kossmann, RN) Quality: Mild (Radha Kossmann, RN) Duration (sec): 30-50 (Radha Kossmann, RN) Resting Tone (Palpate): Relaxed (Radha Rogerssmann, RN) Monitor Mode: External US (Radha Rogerssmann, RN) FHR Baseline Rate : 130 (Radha Kossmann, RN) Variability: Moderate 6-25 bpm (Radha Kossmann, RN) Accelerations: 15X15 (Radha Kossmann, RN) Decelerations: None (Radha Kossmann, RN) Datetime: 04/28/2016 20:20 NBP Sys/Brissa/Mean (mmHg): 102 (QS system process) : 56 (QS system process) : 74 (QS system process) Pulse: 69 (QS system process) LaborFlag: Labor (QS system process) Datetime: 04/28/2016 20:15 Monitor Mode: External; Palpation (Radha Morse, RN) Frequency (min): occasional (Radha Morse, RN) Quality: Mild (Radha Ambroseann, RN) Duration (sec): 50-90 (Radha Kossmann, RN) Resting Tone (Palpate): Relaxed (Radha Morse, RN) Monitor Mode: External US (Radha Morse, RN) FHR Baseline Rate : 135 (Radha Morse, RN) Variability: Moderate 6-25 bpm (Radha Morse, RN) Decelerations: None (Radha Ambroseann, RN) Datetime: 04/28/2016 20:00 Monitor Mode: External; Palpation (Radha Morse, RN) Frequency (min): irregular (Radha Morse, RN) Quality: Mild (Radha Ambroseann, RN) Duration (sec): 50-70 (Radha Morse, RN) Resting Tone (Palpate): Relaxed (Radha Morse, RN) Monitor Mode: External US (Radha Morse, RN) FHR Baseline Rate : 130 (Radha Kossmann, RN) Variability: Moderate 6-25 bpm (Radha Rogerssmann, RN) Accelerations: 15X15 (Radhamelvin Morse, RN) Decelerations: None (Radha Morse, RN) Level of Consciousness: Fully Conscious (Radha Morse, RN) DTR's/Clonus: DTRs 1+; No Clonus (Radha Morse, RN) Headache: Generalized (Radha Morse RN) Breath Sounds, Left: Clear and Equal (Radha Morse RN) Breath Sounds, Right: Clear and Equal (Radha Morse RN) Nausea/Vomiting: Hx of Nausea/Vomiting (Annotations: patient just vomitted but states feels better) (Radha Morse RN) RUQ Epigastric Pain: Denies (Radha Morse RN) Patient Position/Activity: Left Lateral (Radha Morse RN)
[2016-04-28] MEDS ORDERED: ZOLPIDEM TARTRATE 5 MG TABLET ONE (22:54)
[2016-04-29] MEDS ORDERED: PROMETHAZINE HCL INJ 25 MG/1 ML VIAL ONE (04:30)
[2016-04-29] MEDS ORDERED: NALBUPHINE HCL INJ 10 MG/1 ML AMPULE ONE (04:30)
[2016-04-29] MEDS: RINGERS SOLUTION,LACTATED 1,000 ML IV PRN (06:20)
[2016-04-29] MEDS ORDERED: LIDOCAINE 2% INJ-PF (20 MG/ML) 10 ML AMPUL ONE (06:38)
[2016-04-29] MEDS ORDERED: FENTANYL/BUPIVACAINE/NS/PF 200 MCG/100 ML RTUINJ EPI ONE (06:39)
--- NOTE | 2016-04-29 08:01 | L&D Flow Sheet ---
LD Flowsheet Datetime Report Generated by CPN: 04/29/2016 08:00 Datetime: 04/29/2016 07:57 NBP Sys/Brissa/Mean (mmHg): 106 (QS system process) : 58 (QS system process) : 77 (QS system process) Pulse: 75 (QS system process) LaborFlag: Labor (QS system process) Datetime: 04/29/2016 07:56 Notification Reason: Status Update; Status; Labor Status; Membrane Status; Uterine Activity; Pain (Amy Jimenez RN) Communication Comments: Dr Rushing at bedside. EFM, VS, SVE reviewed. Will start pitocin IOL 1 hour after cervidil removed. (Amy Jimenez RN) Datetime: 04/29/2016 07:48 Dilatation (cm): 3.0 (Amy Jimenez RN) Effacement (%): 70 (Amy Jimenez RN) Station: 0 (Amy Jimenez RN) Exam by: Bernadette Jimenez RNC (Amy Jimenez RN) Vaginal Bleeding: Normal Show (Amy Jimenez RN) Cervix, Consistency: Moderate (Amy Jimenez RN) Cervix, Position: Anterior (Amy Jimenez RN) Datetime: 04/29/2016 07:37 NBP Sys/Brissa/Mean (mmHg): 105 (QS system process) : 59 (QS system process) : 80 (QS system process) Pulse: 81 (QS system process) LaborFlag: Labor (QS system process) Datetime: 04/29/2016 07:32 NBP Sys/Brissa/Mean (mmHg): 106 (QS system process) : 55 (QS system process) : 74 (QS system process) Pulse: 81 (QS system process) LaborFlag: Labor (QS system process) Datetime: 04/29/2016 07:28 NBP Sys/Brissa/Mean (mmHg): 109 (QS system process) : 55 (QS system process) : 75 (QS system process) Pulse: 91 (QS system process) LaborFlag: Labor (QS system process) Datetime: 04/29/2016 07:22 NBP Sys/Brissa/Mean (mmHg): 110 (QS system process) : 55 (QS system process) : 76 (QS system process) Pulse: 83 (QS system process) LaborFlag: Labor (QS system process) Datetime: 04/29/2016 07:17 NBP Sys/Brissa/Mean (mmHg): 107 (QS system process) : 57 (QS system process) : 75 (QS system process) Pulse: 81 (QS system process) LaborFlag: Labor (QS system process) Datetime: 04/29/2016 07:15 Monitor Mode: External; Palpation (Amy Jimenez RN) Frequency (min): 2-6 (Amy Jimenez RN) Quality: Mild/Moderate (Amy Jimenez RN) Duration (sec): 40-60 (Amy Jimenez RN) Resting Tone (Palpate): Relaxed (Amy Jimenez RN) Monitor Mode: External US (Amy Jimenez RN) FHR Baseline Rate : 135 (Amy Jimenez RN) Variability: Moderate 6-25 bpm (Amy Jimenez RN) Accelerations: 10X10 (Amy Tony, RN) Decelerations: Early (Amy Tony, RN) Datetime: 04/29/2016 07:12 NBP Sys/Brissa/Mean (mmHg): 107 (QS system process) : 56 (QS system process) : 74 (QS system process) Pulse: 85 (QS system process) LaborFlag: Labor (QS system process) Datetime: 04/29/2016 07:10 Patient Care Comments: Report to oncoming shift, care relinquished to RN Tony (Radha Rogerssmann, RN) Datetime: 04/29/2016 07:06 NBP Sys/Brissa/Mean (mmHg): 113 (QS system process) : 57 (QS system process) : 80 (QS system process) Pulse: 83 (QS system process) LaborFlag: Labor (QS system process) Datetime: 04/29/2016 07:05 NBP Sys/Brissa/Mean (mmHg): 113 (QS system process) : 55 (QS system process) : 79 (QS system process) Pulse: 82 (QS system process) LaborFlag: Labor (QS system process) Datetime: 04/29/2016 07:04 NBP Sys/Brissa/Mean (mmHg): 114 (QS system process) : 56 (QS system process) : 79 (QS system process) Pulse: 80 (QS system process) LaborFlag: Labor (QS system process) Datetime: 04/29/2016 07:03 NBP Sys/Brissa/Mean (mmHg): 119 (QS system process) : 61 (QS system process) : 85 (QS system process) Pulse: 78 (QS system process) LaborFlag: Labor (QS system process) Datetime: 04/29/2016 07:02 NBP Sys/Brissa/Mean (mmHg): 115 (QS system process) : 57 (QS system process) : 81 (QS system process) Pulse: 84 (QS system process) LaborFlag: Labor (QS system process) Datetime: 04/29/2016 07:01 NBP Sys/Brissa/Mean (mmHg): 117 (QS system process) : 62 (QS system process) : 83 (QS system process) Pulse: 81 (QS system process) Monitor Mode: External; Palpation (Radha Morse, RN) Frequency (min): 2-6 (Radha Morse, RN) Quality: Mild/Moderate (Radha Morse, RN) Duration (sec): 50-100 (Radha Morse, RN) Resting Tone (Palpate): Relaxed (Radha Morse, RN) Monitor Mode: External US (Radha Morse, RN) FHR Baseline Rate : 130 (Radha Morse, RN) Variability: Moderate 6-25 bpm (Radha Morse, RN) Accelerations: 15X15 (Radha Morse, RN) Decelerations: Early (Radha Morse, RN) LaborFlag: Labor (QS system process) Datetime: 04/29/2016 06:55 Epidural Procedure Other: Pump Started; Single Dose (Annotations: Dr. Kelly at bedside. Epidural catheter bolused with 2% lidocaine 8ml. Catheter patent. Epidural then restarted on pump per provider.) (Radha Morse RN) Datetime: 04/29/2016 06:54 Patient Position/Activity: Right Tilt (Radha Rogerssmann, RN) Datetime: 04/29/2016 06:50 NBP Sys/Brissa/Mean (mmHg): 113 (QS system process) : 58 (QS system process) : 81 (QS system process) Pulse: 80 (QS system process) LaborFlag: Labor (QS system process) Datetime: 04/29/2016 06:40 Communication Comments: Dr. Chappell aware of patient getting epidural restarted (Radha Kossmann, RN) Datetime: 04/29/2016 06:34 Anesthesia Comments: Dr. Kelly notified of epidural request, md to come in for pain management. (Radha Morse RN) Datetime: 04/29/2016 06:30 Monitor Mode: External; Palpation (Radha Morse RN) Frequency (min): 2-7 (Radha Morse RN) Quality: Mild (Radha Morse RN) Duration (sec): 30-70 (Radha Morse RN) Resting Tone (Palpate): Relaxed (Radha Morse RN) Monitor Mode: External US (Radha Morse RN) FHR Baseline Rate : 130 (Radha Morse RN) Variability: Moderate 6-25 bpm (Radha Morse RN) Accelerations: 15X15 (Radha Morse RN) Decelerations: Early (Radha Morse RN) IV/Blood Work: New IV Bag Hung (Annotations: ivf switched to LR for bolus ) (Radha Morse RN) Anesthesia Comments: IVF bolus initiated due to epidural request (Radha Morse RN) Datetime: 04/29/2016 06:21 NBP Sys/Brissa/Mean (mmHg): 118 (QS system process) : 60 (QS system process) : 82 (QS system process) Pulse: 76 (QS system process) Respirations: 18 (Radha Morse RN) Pain Scale: 5 (Radha Morse RN) Pain Presence: Intermittent (Radha Morse RN) Pain Type: Contraction (Radha Morse RN) Pain Location: Abdomen; Back (Radha Morse RN) Pain Relief Measures: Comfort Measures (Annotations: patient requesting epidural to be restarted) (Radha Morse RN) Pain Coping: Talking Through Contractions; Breathing Through Contractions; Requesting Pain Medication or Epidural (Radha Morse RN) LaborFlag: Labor (QS system process) Datetime: 04/29/2016 06:01 Monitor Mode: External; Palpation (Radha Morse RN) Frequency (min): 2-5 (Radha Morse RN) Quality: Mild (Radha Morse RN) Duration (sec): 30-70 (Radha Morse RN) Resting Tone (Palpate): Relaxed (Radha Morse RN) Monitor Mode: External US (Radha Morse RN) FHR Baseline Rate : 130 (Radha Morse RN) Variability: Moderate 6-25 bpm (Radha Kossmann, RN) Accelerations: 15X15 (Radha Morse, RN) Decelerations: None (Radha Morse, RN) Datetime: 04/29/2016 05:51 NBP Sys/Brissa/Mean (mmHg): 131 (QS system process) : 75 (QS system process) : 98 (QS system process) Pulse: 86 (QS system process) LaborFlag: Labor (QS system process) Datetime: 04/29/2016 05:30 Monitor Mode: External; Palpation (Radha Morse RN) Frequency (min): 1-6 (Radha Morse RN) Quality: Mild (Radha Morse RN) Duration (sec): 30-60 (Radha Morse RN) Resting Tone (Palpate): Relaxed (Radha Morse RN) Monitor Mode: External US (Radha Morse RN) FHR Baseline Rate : 130 (Radha Morse RN) Variability: Moderate 6-25 bpm (Radha Morse, RN) Accelerations: 15X15 (Radha Morse, RN) Decelerations: None (Radha Morse, RN) Datetime: 04/29/2016 05:21 NBP Sys/Brissa/Mean (mmHg): 128 (QS system process) : 72 (QS system process) : 93 (QS system process) Pulse: 83 (QS system process) LaborFlag: Labor (QS system process) Datetime: 04/29/2016 05:07 Pain Scale: patient sleeping comfortably through contractions, at bedside (Radha Morse, RN) LaborFlag: Labor (QS system process) Datetime: 04/29/2016 05:01 Monitor Mode: External; Palpation (Radha Morse RN) Frequency (min): 1.5-3 (Radha Morse RN) Quality: Mild (Radha Morse RN) Duration (sec): 40-90 (Radha Morse RN) Resting Tone (Palpate): Relaxed (Radha Morse RN) Monitor Mode: External US (Radha Morse RN) FHR Baseline Rate : 130 (Radha Morse RN) Variability: Moderate 6-25 bpm (Radha Morse RN) Accelerations: 15X15 (Radha Morse RN) Decelerations: None (Radha Morse RN) Datetime: 04/29/2016 05:00 Pain Scale: 5 (Radha Morse RN) Pain Presence: Intermittent (Radha Morse RN) Pain Type: Contraction (Radha Morse RN) Pain Location: Abdomen; Back (Radha Morse RN) Pain Relief Measures: Pain Medication Given; Comfort Measures (Radha Morse RN) Pain Coping: Talking Through Contractions; Breathing Through Contractions; Requesting Pain Medication or Epidural (Radha Morse RN) Analgesics/Sedatives: Nubain (mg) @; Phenergan (mg) @ (Annotations: nubain 10mg sivp and phenergan 12.5mg sivp) (Radha Morse RN) LaborFlag: Labor (QS system process) Datetime: 04/29/2016 04:30 Monitor Mode: External; Palpation (Radha Morse, EDILMA) Frequency (min): 1.5-5 (Radha Morse, RN) Quality: Mild (Radha Morse, RN) Duration (sec): 30-80 (aRdha Morse, RN) Resting Tone (Palpate): Relaxed (Radha Morse, RN) Monitor Mode: External US (Radha Morse, RN) FHR Baseline Rate : 140 (Radha Morse, RN) Variability: Moderate 6-25 bpm (Radha Morse, RN) Accelerations: 15X15 (Radha Morse, RN) Decelerations: None (Radha Morse, RN) Datetime: 04/29/2016 04:26 Communication Comments: Discussed POC with Dr. Chappell. aware of epidural being off and request for pain meds. Patient open to IV meds. MD states may give nubain and phenergan IV. (Radha Morse RN) Datetime: 04/29/2016 04:23 Pain Scale: 4 (Radha Morse RN) Pain Presence: Intermittent (Radha Morse RN) Pain Type: Contraction (Radha Morse RN) Pain Location: Abdomen (Radha Morse RN) Pain Relief Measures: Pain Medication Given (Radha Morse RN) Pain Coping: Talking Through Contractions; Breathing Through Contractions; Requesting Pain Medication or Epidural (Radha Morse RN) Dilatation (cm): 2.0 (Radha Morse RN) Effacement (%): 80 (Radha Morse RN) Station: -1 (Radha Morse RN) Exam by: EDILMA Morse (Radha Morse RN) Vaginal Bleeding: Scant (Radha Morse RN) Cervix, Consistency: Soft (Radha Morse RN) Cervix, Position: Midposition (Radha Morse RN) Vaginal Exam Comments: old blood noted on glove when performing sve, cervidil remains in place. (Radha Morse RN) Comfort Measures: Breathing/Relaxation; Family Support (Radha Morse RN) LaborFlag: Labor (QS system process) Datetime: 04/29/2016 04:21 NBP Sys/Brissa/Mean (mmHg): 128 (QS system process) : 68 (QS system process) : 91 (QS system process) Pulse: 96 (QS system process) Respirations: 16 (Radha Morse RN) LaborFlag: Labor (QS system process) Datetime: 04/29/2016 04:01 Monitor Mode: External; Palpation (Radha Morse, RN) Frequency (min): 3-5 (Radha Morse, RN) Quality: Mild (Radha Rogerssmann, RN) Duration (sec): 50-140 (Radha Rogerssmann, RN) Resting Tone (Palpate): Relaxed (Radha Morse, RN) Monitor Mode: External US (Radha Morse, RN) FHR Baseline Rate : 145 (Radhamelvin Ambroseann, RN) Variability: Moderate 6-25 bpm (Radha Rogerssmann, RN) Decelerations: None (Radha Rogerssmann, RN) Datetime: 04/29/2016 03:44 I/O Interventions: Up to BR (Radha Kossmann, RN) Datetime: 04/29/2016 03:30 Monitor Mode: External; Palpation (Radha Rogerssmann, RN) Frequency (min): 2-5 (Radha Kossmann, RN) Quality: Mild (Radha Kossmann, RN) Duration (sec): 60-130 (Radha Kossmann, RN) Resting Tone (Palpate): Relaxed (Radha Kossmann, RN) Monitor Mode: External US (Radha Kossmann, RN) FHR Baseline Rate : 145 (Radha Kossmann, RN) Variability: Moderate 6-25 bpm (Radha Kossmann, RN) Accelerations: 15X15 (Radha Kossmann, RN) Decelerations: None (Radha Kossmann, RN) Datetime: 04/29/2016 03:21 NBP Sys/Brissa/Mean (mmHg): 110 (QS system process) : 70 (QS system process) : 84 (QS system process) Pulse: 89 (QS system process) Respirations: 16 (Radha Morse RN) Temperature (F): 99.2 (Radha Morse RN) Temperature (C): 37.3 (QS system process) Temperature Route: Oral (Radha Morse RN) Pain Scale: 2 (Radha Morse RN) Pain Presence: Intermittent (Radha Morse RN) Pain Type: Contraction (Radha Morse RN) Pain Location: Abdomen (Radha Morse RN) Pain Relief Measures: Comfort Measures (Radha Morse RN) Pain Coping: Talking Through Contractions; Breathing Through Contractions (Radha Morse RN) LaborFlag: Labor (QS system process) Datetime: 04/29/2016 03:06 IV/Blood Work: New IV Bag Hung (Radha Morse RN) Datetime: 04/29/2016 03:03 Monitor Interventions for UA: Rena Lara Adjusted (Radha Morse, RN) Monitor Interventions for FHR: Ultrasound Adjusted (Radha Morse, RN) Datetime: 04/29/2016 03:01 Monitor Mode: External; Palpation (Radha Morse, RN) Frequency (min): irregular (Radha Morse, RN) Quality: Mild (Radha Morse, RN) Duration (sec): 50-110 (Radha Morse, RN) Resting Tone (Palpate): Relaxed (Radha Morse, RN) Monitor Mode: External US (Radha Morse, RN) FHR Baseline Rate : 155 (Radha Morse, RN) Variability: Moderate 6-25 bpm (Radha Rogerssmann, RN) Accelerations: 15X15 (Radha Rogerssmann, RN) Decelerations: None (Radhamelvin Ambroseann, RN) Datetime: 04/29/2016 02:40 Patient Care Comments: ambulated to bathroom to have a bowel movement (Radha Morse RN) Datetime: 04/29/2016 02:39 I/O Interventions: Laws Discontinued (Radha Morse RN) Patient Care Comments: scds and teds removed due to ability to ambulate, laws discontinued (Radha Morse RN) Anesthesia Comments: Epidural pump tubing removed, epidural catheter in covered with 3ml syringe and taped to patient chest per provider request. (Radha Morse RN) Datetime: 04/29/2016 02:35 Communication Comments: Discussed POC with Dr. Kelly. aware that patient would like to be out of bed. MD states okay to ambulate for bathroom privledges and to secure epidural with 3ml syringe taped to chest. (Radha Morse RN) Datetime: 04/29/2016 02:32 Patient Care Comments: Patient requesting to have bowel movement but refusing bedpan. Will discuss POC with Dr. Kelly. (Radha Morse RN) Datetime: 04/29/2016 02:30 Monitor Mode: External; Palpation (Radha Morse, RN) Frequency (min): 2-8 (Radha Morse, RN) Quality: Mild (Radha Morse, RN) Duration (sec): 50-110 (Radha Morse, RN) Resting Tone (Palpate): Relaxed (Radha Morse, RN) Monitor Mode: External US (Radha Morse, RN) FHR Baseline Rate : 150 (Radha Morse, RN) Variability: Moderate 6-25 bpm (Radha Ambroseann, RN) Accelerations: 15X15 (Radha Morse, RN) Decelerations: None (Radha Morse, RN) Datetime: 04/29/2016 02:22 NBP Sys/Brissa/Mean (mmHg): 120 (QS system process) : 64 (QS system process) : 82 (QS system process) Pulse: 99 (QS system process) LaborFlag: Labor (QS system process) Datetime: 04/29/2016 02:01 Monitor Mode: External; Palpation (Radha Ambroseann, RN) Frequency (min): 2-6 (Radha Ambroseann, RN) Quality: Mild (Radha Rogerssmann, RN) Duration (sec): 50-140 (Radha Rogerssmann, RN) Resting Tone (Palpate): Relaxed (Radha Rogerssmann, RN) Monitor Mode: External US (Radha Halieann, RN) FHR Baseline Rate : 155 (Radha Rogerssmann, RN) Variability: Moderate 6-25 bpm (Radha Kossmann, RN) Accelerations: 15X15 (Radha Kossmann, RN) Decelerations: None (Radha Rogerssmann, RN) Datetime: 04/29/2016 02:00 Monitor Mode: External; Palpation (Radha Kossmann, RN) Frequency (min): 2-7 (Radha Kossmann, RN) Quality: Mild (Radha Kossmann, RN) Duration (sec): 50-180 (Radha Kossmann, RN) Resting Tone (Palpate): Relaxed (Radha Kossmann, RN) Monitor Mode: External US (Radha Kossmann, RN) FHR Baseline Rate : 155 (Radha Kossmann, RN) Variability: Moderate 6-25 bpm (Radha Kossmann, RN) Accelerations: 15X15 (Radha Kossmann, RN) Decelerations: None (Radha Kossmann, RN) Datetime: 04/29/2016 01:50 NBP Sys/Brissa/Mean (mmHg): 105 (QS system process) : 63 (QS system process) : 78 (QS system process) Pulse: 105 (QS system process) LaborFlag: Labor (QS system process) Datetime: 04/29/2016 01:30 Monitor Mode: External; Palpation (Radha Kossmann, RN) Frequency (min): 4-8 (Radha Kossmann, RN) Quality: Mild (Radha Kossmann, RN) Duration (sec): 90-180 (Radha Kossmann, RN) Resting Tone (Palpate): Relaxed (Radha Kossmann, RN) Monitor Mode: External US (Radha Kossmann, RN) FHR Baseline Rate : 150 (Radha Kossmann, RN) Variability: Moderate 6-25 bpm (Radha Kossmann, RN) Accelerations: 15X15 (Radha Kossmann, RN) Decelerations: None (Radha Kossmann, RN) Datetime: 04/29/2016 01:22 NBP Sys/Brissa/Mean (mmHg): 106 (QS system process) : 58 (QS system process) : 73 (QS system process) Pulse: 114 (QS system process) LaborFlag: Labor (QS system process) Datetime: 04/29/2016 01:01 Monitor Mode: External; Palpation (Radha Kossmann, RN) Frequency (min): irregular (Radha Kossmann, RN) Quality: Mild (Radha Kossmann, RN) Duration (sec): 90-130 (Radha Kossmann, RN) Resting Tone (Palpate): Relaxed (Radha Kossmann, RN) Monitor Mode: External US (Radha Kossmann, RN) FHR Baseline Rate : 150 (Radha Kossmann, RN) Variability: Moderate 6-25 bpm (Radha Kossmann, RN) Accelerations: 15X15 (Radha Kossmann, RN) Decelerations: None (Radha Kossmann, RN) Datetime: 04/29/2016 00:51 NBP Sys/Brissa/Mean (mmHg): 108 (QS system process) : 62 (QS system process) : 79 (QS system process) Pulse: 82 (QS system process) LaborFlag: Labor (QS system process) Datetime: 04/29/2016 00:30 Monitor Mode: External; Palpation (Radha Morse RN) Frequency (min): irregular (Radha Morse, EDILMA) Quality: Mild (Radha Morse, RN) Duration (sec): 70-100 (Radha Morse, RN) Resting Tone (Palpate): Relaxed (Radha Morse, EDILMA) Monitor Mode: External US (Radha Morse RN) FHR Baseline Rate : 150 (Radha Morse, EDILMA) Variability: Moderate 6-25 bpm (Radha Morse, EDILMA) Accelerations: 10X10 (Radha Morse, EDILMA) Decelerations: None (Radha Morse RN) Datetime: 04/29/2016 00:20 NBP Sys/Brissa/Mean (mmHg): 105 (QS system process) : 59 (QS system process) : 76 (QS system process) Pulse: 103 (QS system process) Respirations: 16 (Radha Morse RN) Temperature (F): 99.5 (Radha Morse RN) Temperature (C): 37.5 (QS system process) Temperature Route: Oral (Radha Morse RN) Pain Scale: 0 (Radha Morse RN) Pain Presence: None/Denies (Radha Morse RN) Pain Type: N/A (Radha Morse RN) LaborFlag: Labor (QS system process) Datetime: 04/29/2016 00:01 Monitor Mode: External; Palpation (Radha Kossmann, RN) Frequency (min): irregular (Radha Kossmann, RN) Quality: Mild (Radha Kossmann, RN) Duration (sec): 50-160 (Radha Kossmann, RN) Resting Tone (Palpate): Relaxed (Radha Kossmann, RN) Monitor Mode: External US (Radha Kossmann, RN) FHR Baseline Rate : 130 (Radha Kossmann, RN) Variability: Moderate 6-25 bpm (Radha Kossmann, RN) Accelerations: 15X15 (Radha Kossmann, RN) Decelerations: None (Radha Kossmann, RN) Datetime: 04/28/2016 23:52 NBP Sys/Brissa/Mean (mmHg): 114 (QS system process) : 68 (QS system process) : 84 (QS system process) Pulse: 81 (QS system process) LaborFlag: Labor (QS system process) Datetime: 04/28/2016 23:30 Monitor Mode: External; Palpation (Radha Kossmann, RN) Frequency (min): irregular (Radha Kossmann, RN) Quality: Mild (Radha Kossmann, RN) Duration (sec): 40-120 (Radha Kossmann, RN) Resting Tone (Palpate): Relaxed (Radha Kossmann, RN) Monitor Mode: External US (Radha Kossmann, RN) FHR Baseline Rate : 130 (Radha Kossmann, RN) Variability: Moderate 6-25 bpm (Radha Kossmann, RN) Accelerations: 15X15 (Radha Kossmann, RN) Decelerations: None (Radha Kossmann, RN) Datetime: 04/28/2016 23:20 NBP Sys/Brissa/Mean (mmHg): 107 (QS system process) : 62 (QS system process) : 79 (QS system process) Pulse: 83 (QS system process) LaborFlag: Labor (QS system process) Datetime: 04/28/2016 23:00 Monitor Mode: External; Palpation (Radha Kossmann, RN) Frequency (min): x2 (Radha Kossmann, RN) Quality: Mild (Radha Kossmann, RN) Duration (sec): 40-110 (Radha Kossmann, RN) Resting Tone (Palpate): Relaxed (Radha Kossmann, RN) Monitor Mode: External US (Radha Kossmann, RN) FHR Baseline Rate : 140 (Radha Kossmann, RN) Variability: Moderate 6-25 bpm (Radha Kossmann, RN) Accelerations: 15X15 (Radha Kossmann, RN) Decelerations: None (Radha Kossmann, RN) Datetime: 04/28/2016 22:59 Anesthesia Comments: Dr. Kelyl notified that patient agreed to have epidural off and to receive ambien. Epidural remains in place and connected though pump is off. (Radha Kossmann, RN) Datetime: 04/28/2016 22:57 Analgesics/Sedatives: Ambien (mg) @ (Annotations: 5mg po) (Radha Morse RN) Datetime: 04/28/2016 22:52 NBP Sys/Brissa/Mean (mmHg): 110 (QS system process) : 71 (QS system process) : 85 (QS system process) Pulse: 83 (QS system process) LaborFlag: Labor (QS system process) Datetime: 04/28/2016 22:45 Monitor Mode: External; Palpation (Radha Morse RN) Frequency (min): occasional (Radha Morse RN) Quality: Mild (Radha Kossmann, RN) Duration (sec): 60-100 (Radha Morse, RN) Resting Tone (Palpate): Relaxed (Radha Morse, RN) Monitor Mode: External US (Radha Morse RN) FHR Baseline Rate : 145 (Radha Morse, RN) Variability: Moderate 6-25 bpm (Radha Morse, RN) Accelerations: 15X15 (Radha Morse, RN) Decelerations: None (Radha Morse, RN) Datetime: 04/28/2016 22:38 Anesthesia Comments: pump turned off. discussed POC with patient. Patient and agreed to have epidural off though it will remain in through the night so that patient will have better coverage tomorrow when pitocin is restarted. (Radha Morse RN) Datetime: 04/28/2016 22:30 Monitor Mode: External; Palpation (Radha Morse RN) Frequency (min): occasional (Radha Morse RN) Quality: Mild (Radha Morse RN) Duration (sec): 70-120 (Radha Morse RN) Resting Tone (Palpate): Relaxed (Radha Morse RN) Monitor Mode: External US (Radha Morse RN) FHR Baseline Rate : 140 (Radha Morse RN) Variability: Moderate 6-25 bpm (Radha Morse RN) Accelerations: 15X15 (Radha Morse RN) Decelerations: None (Radha Morse RN) Anesthesia Comments: Epidural pump states no fluid in bag. Called Dr. Kelly to notify MD. MD expressed concerns running epidural during the night if not needed due to possibility epidural would not work as well tomorrow when patient is having pain while being induced. Plans to discuss with patient turning epidural off. (Radha Morse RN) Datetime: 04/28/2016 22:22 NBP Sys/Brissa/Mean (mmHg): 103 (QS system process) : 57 (QS system process) : 75 (QS system process) Pulse: 83 (QS system process) LaborFlag: Labor (QS system process) Datetime: 04/28/2016 22:15 Monitor Mode: External; Palpation (Radha Kossmann, RN) Frequency (min): occasional (Radha Kossmann, RN) Quality: Mild (Radha Kossmann, RN) Duration (sec): 100-120 (Radha Kossmann, RN) Resting Tone (Palpate): Relaxed (Radha Kossmann, RN) Monitor Mode: External US (Radha Kossmann, RN) FHR Baseline Rate : 140 (Radha Kossmann, RN) Variability: Moderate 6-25 bpm (Radha Kossmann, RN) Accelerations: 15X15 (Radha Kossmann, RN) Decelerations: None (Radha Kossmann, RN) Datetime: 04/28/2016 22:00 Monitor Mode: External; Palpation (Radha Kossmann, RN) Frequency (min): x1 (Radha Kossmann, RN) Quality: Mild (Radha Kossmann, RN) Duration (sec): 50 (Radha Kossmann, RN) Resting Tone (Palpate): Relaxed (Radha Kossmann, RN) Monitor Mode: External US (Radha Kossmann, RN) FHR Baseline Rate : 140 (Radha Kossmann, RN) Variability: Moderate 6-25 bpm (Radha Kossmann, RN) Accelerations: 15X15 (Radha Kossmann, RN) Decelerations: None (Radha Kossmann, RN)
[2016-04-29] MEDS ORDERED: RINGERS SOLUTION,LACTATED 1,000 ML IV PRN (08:35)
[2016-04-29] MEDS ORDERED: OXYTOCIN/NORMAL SALINE 0 UNIT/0 ML RTUINJ ONE (08:50)
--- NOTE | 2016-04-29 10:00 | L&D Flow Sheet ---
LD Flowsheet Datetime Report Generated by CPN: 04/29/2016 10:00 Datetime: 04/29/2016 09:51 Patient Position/Activity: Left Lateral (Amy Tony, RN) Datetime: 04/29/2016 09:50 Monitor Interventions for UA: IUPC Inserted (Amy Tony, RN) Contraction Comments: by Dr Neilsen (Amy Tony, RN) Datetime: 04/29/2016 09:48 Dilatation (cm): 4.0 (Amy Jimenez RN) Effacement (%): 90 (Amy Jimenez RN) Station: 0 (Amy Jimenez RN) Exam by: Dr Rushing (Amy Jimenez RN) Membrane Status: Ruptured (Amy Jimenez RN) Membranes Rupture Method: Artificial (Amy Jimenez RN) Amniotic Fluid Color: Clear (Amy Jimenez RN) Amniotic Fluid Amount: Scant (Amy Jimenez RN) Amniotic Fluid Odor: Normal (Amy Jimenez RN) Vaginal Bleeding: Normal Show (Amy Jimenez RN) Cervix, Consistency: Moderate (Amy Jimenez RN) Cervix, Position: Anterior (Amy Jimenez RN) Datetime: 04/29/2016 09:46 Notification Reason: Status Update; Status; Labor Status; Membrane Status; Uterine Activity (Amy Jimenez RN) Communication Comments: Dr Rushing at bedside (Amy Jimenez RN) Datetime: 04/29/2016 09:45 NBP Sys/Brissa/Mean (mmHg): 123 (QS system process) : 68 (QS system process) : 91 (QS system process) Pulse: 79 (QS system process) Respirations: 18 (Amy Jimenez RN) Monitor Mode: External; Palpation (Amy Jimenez RN) Frequency (min): 2-3 (Amy Jimenez RN) Quality: Mild/Moderate (Amy Jimenez RN) Duration (sec): 50-80 (Amy Jimenez RN) Resting Tone (Palpate): Relaxed (Amy Jimenez RN) Monitor Mode: External US (Amy Jimenez RN) FHR Baseline Rate : 150 (Amy Jimenez RN) Variability: Moderate 6-25 bpm (Amy Jimenez, RN) Decelerations: Early; Variable (Amy Jimenez RN) Pitocin (milliunit): Pitocin Remains (milliunits) @ 4 (Amy Jimenez RN) LaborFlag: Labor (QS system process) Datetime: 04/29/2016 09:30 Monitor Mode: External; Palpation (Amy Jimenez RN) Frequency (min): 2-5 (Amy Jimenez, RN) Quality: Mild/Moderate (Amyjuliano Jimenez, RN) Duration (sec): 50-80 (Amy Jimenez RN) Resting Tone (Palpate): Relaxed (Amy Jimenez RN) Monitor Mode: External US (Amy Jimenez RN) FHR Baseline Rate : 150 (Amy Jimenez RN) Variability: Moderate 6-25 bpm (Amy Jimenez RN) Decelerations: Early; Variable (Amy Jimenez RN) Pitocin (milliunit): Pitocin Increased to (milliunits) @ 4 (Amy Jimenez RN) Datetime: 04/29/2016 09:16 NBP Sys/Brissa/Mean (mmHg): 114 (QS system process) : 59 (QS system process) : 80 (QS system process) Pulse: 83 (QS system process) Respirations: 18 (Amy Jimenez RN) LaborFlag: Labor (QS system process) Datetime: 04/29/2016 09:15 Monitor Mode: External; Palpation (Amy Jimenez RN) Frequency (min): 3-5 (Amy Jimenez RN) Quality: Mild (Amy Tony, RN) Duration (sec): 50-80 (Amy Jimenez RN) Resting Tone (Palpate): Relaxed (Aym Jimenez RN) Monitor Mode: External US (Aym Jimenez RN) FHR Baseline Rate : 150 (Amy Jimenez RN) Variability: Moderate 6-25 bpm (Amy Jimenez, RN) Decelerations: Early (Amy Jimenez RN) Pitocin (milliunit): Pitocin Remains (milliunits) @ 2 (Amy Jimenez, RN) Datetime: 04/29/2016 09:02 Patient Position/Activity: Right Lateral (Amy Jimenez, RN) Datetime: 04/29/2016 09:00 Monitor Mode: External; Palpation (Amy Jimenez RN) Frequency (min): 4-6 (Amy Jimenez RN) Quality: Mild/Moderate (Amy Jimenez, RN) Duration (sec): 60-80 (Amy Jimenez RN) Resting Tone (Palpate): Relaxed (Amy Jimenez RN) Monitor Mode: External US (Amy Jimenez RN) FHR Baseline Rate : 135 (Amy Jimenez RN) Variability: Moderate 6-25 bpm (Amy Jimenez RN) Decelerations: Early; Variable (Amy Jimenez RN) Pitocin (milliunit): Pitocin Remains (milliunits) @ 2 (Amy Jimenez, RN) Datetime: 04/29/2016 08:55 Pitocin (milliunit): Pitocin Started (milliunits) @ 2 (Amy Jimenez, RN) Datetime: 04/29/2016 08:46 NBP Sys/Brissa/Mean (mmHg): 128 (QS system process) : 63 (QS system process) : 89 (QS system process) Pulse: 77 (QS system process) Respirations: 14 (Amy Jimenez RN) LaborFlag: Labor (QS system process) Datetime: 04/29/2016 08:45 Monitor Mode: External; Palpation (Amy Tony, RN) Frequency (min): 5-6 (Amy Tony, RN) Quality: Mild (Amy Tony, RN) Duration (sec): 60-90 (Amy Tony, RN) Resting Tone (Palpate): Relaxed (Amy Tony, RN) Monitor Mode: External US (Amy Tony, RN) FHR Baseline Rate : 135 (Amy Tony, RN) Variability: Moderate 6-25 bpm (Amy Tony, RN) Decelerations: Early (Amy Tony, RN) Datetime: 04/29/2016 08:31 NBP Sys/Brissa/Mean (mmHg): 117 (QS system process) : 57 (QS system process) : 81 (QS system process) Pulse: 75 (QS system process) Respirations: 16 (Amy Tony, RN) LaborFlag: Labor (QS system process) Datetime: 04/29/2016 08:30 Monitor Mode: External; Palpation (Amy Tony, RN) Frequency (min): 3-6 (Amy Tony, RN) Quality: Mild (Amy Tony, RN) Duration (sec): 50-80 (Amy Tony, RN) Resting Tone (Palpate): Relaxed (Amy Tony, RN) Monitor Mode: External US (Amy Tony, RN) FHR Baseline Rate : 135 (Amy Tony, RN) Variability: Moderate 6-25 bpm (Amy Tony, RN) Decelerations: Early (Amy Tony, RN) Datetime: 04/29/2016 08:16 NBP Sys/Brissa/Mean (mmHg): 114 (QS system process) : 59 (QS system process) : 80 (QS system process) Pulse: 78 (QS system process) Respirations: 16 (Amy Tony, RN) LaborFlag: Labor (QS system process) Datetime: 04/29/2016 08:15 Monitor Mode: External; Palpation (Amy Tony, RN) Frequency (min): 3-6 (Amy Tony, RN) Quality: Mild (Amy Tony, RN) Duration (sec): 50-80 (Amy Tony, RN) Resting Tone (Palpate): Relaxed (Amy Tony, RN) Monitor Mode: External US (Amy Tony, RN) FHR Baseline Rate : 140 (Amy Tony, RN) Variability: Moderate 6-25 bpm (Amy Tony, RN) Accelerations: 10X10 (Amy Tony, RN) Decelerations: Early (Amy Tony, RN) Datetime: 04/29/2016 08:00 Monitor Mode: External; Palpation (Amy Tony, RN) Frequency (min): 2-5 (Amy Tony, RN) Quality: Mild/Moderate (Amy Tony, RN) Duration (sec): 50-80 (Amy Tony, RN) Resting Tone (Palpate): Relaxed (Amy Tony, RN) Monitor Mode: External US (Amy Tony, RN) FHR Baseline Rate : 150 (Amy Tony, RN) Variability: Moderate 6-25 bpm (Amy Tony, RN) Decelerations: Early (Amy Tony, RN) Level of Consciousness: Fully Conscious (Amy Tony, RN) DTR's/Clonus: DTRs 1+; No Clonus (Amyjuliano Jimenez, RN) Headache: Denies (Amyjuliano Jimenez, RN) Breath Sounds, Left: Clear and Equal (Amy Jimenez RN) Breath Sounds, Right: Clear and Equal (Amy Jimenez, RN) Nausea/Vomiting: Denies (Amy Jimenez RN) RUQ Epigastric Pain: Denies (Amy Jimenez, EDILMA)
--- NOTE | 2016-04-29 10:04 | L&D Progress Notes ---
PROGRESS NOTES Datetime Report Generated by CPN: 04/29/2016 10:04 PROGRESS NOTE Impression Other: oligo induction Procedures: Artificial ROM; Intrauterine Pressure Catheter Plan: Continue Present Management Comment: molding noted. Scant fluid with arom. Plan pit guided by mvus. FETUS A Decelerations: Early FHR Category: Category I SIGNATURE SIGNATURE: [id number] Signature: with User ID: [email or web address]
--- NOTE | 2016-04-29 12:01 | L&D Flow Sheet ---
LD Flowsheet Datetime Report Generated by CPN: 04/29/2016 12:00 Datetime: 04/29/2016 11:51 Contraction Comments: MVU 275 (Amy Tony, RN) Datetime: 04/29/2016 11:47 Patient Position/Activity: Tailors (Amy Tony, RN) Datetime: 04/29/2016 11:45 Monitor Mode: Internal; Palpation (Amy Jimenez RN) Frequency (min): 2-3 (Amy Jimenez RN) Quality: Moderate to Strong (Amy Jimenez RN) Duration (sec): 60-80 (Amy Jimenez RN) Resting Tone (Palpate): Relaxed (Amy Jimenez RN) Resting Tone IUP (mmHg): 30 (Amy Jimenez RN) Intensity IUP (mmHg): 95 (Amy Jimenez RN) Monitor Mode: External US (Amy Jimenez RN) FHR Baseline Rate : 145 (Amy Jimenez RN) Variability: Minimal - Undetectable to <=5 bpm (Amy Jimenez RN) Accelerations: 15X15 (Amy Jimenez RN) Decelerations: Early (Amy Jimenez RN) Dilatation (cm): 6.0 (Amy Jimenez RN) Effacement (%): 90 (Amy Jimenez RN) Station: 1 (Amy Jimenez RN) Exam by: Dr Rushing (Amy Jimenez RN) Vaginal Bleeding: Normal Show (Amy Jimenez RN) Cervix, Consistency: Moderate (Amy Jimenez RN) Cervix, Position: Anterior (Amy Jimenez RN) Pitocin (milliunit): Pitocin Remains (milliunits) @ 2 (Amy Jimenez RN) Datetime: 04/29/2016 11:44 Communication Comments: Dr Rushing at bedside (Amy Jimenez RN) Datetime: 04/29/2016 11:30 NBP Sys/Brissa/Mean (mmHg): 122 (QS system process) : 70 (QS system process) : 91 (QS system process) Pulse: 63 (QS system process) Respirations: 16 (Amy Jimenez RN) Monitor Mode: Internal; Palpation (Amy Jimenez RN) Frequency (min): 2-3 (Amy Jimenez RN) Quality: Moderate to Strong (Amy Jimenez RN) Duration (sec): 60-90 (Amy Jimenez RN) Resting Tone (Palpate): Relaxed (Amy Jimenez RN) Resting Tone IUP (mmHg): 30 (Amy Jimenez RN) Intensity IUP (mmHg): 100 (Amy Jimenez RN) Monitor Mode: External US (Amy Jimenez RN) FHR Baseline Rate : 140 (Amy Jimenez, RN) Variability: Moderate 6-25 bpm (Amy Jimenez, RN) Accelerations: 10X10 (Amy Jimenez RN) Decelerations: Early (Amy Jimenez RN) Pitocin (milliunit): Pitocin Remains (milliunits) @ 2 (Amy Jimenez RN) LaborFlag: Labor (QS system process) Datetime: 04/29/2016 11:20 Contraction Comments: MVU 280 (Amy Tony, RN) Datetime: 04/29/2016 11:18 Patient Position/Activity: Left Lateral; Peanut Ball (Amy Tony, RN) Datetime: 04/29/2016 11:16 NBP Sys/Brissa/Mean (mmHg): 122 (QS system process) : 67 (QS system process) : 86 (QS system process) Pulse: 88 (QS system process) Respirations: 16 (Amy Jimenez, RN) LaborFlag: Labor (QS system process) Datetime: 04/29/2016 11:15 Monitor Mode: Internal; Palpation (Amy Jimenez RN) Frequency (min): 2-4 (Amy Jimenez RN) Quality: Moderate to Strong (Amy Jimenez RN) Duration (sec): 60-90 (Amy Jimenez RN) Resting Tone (Palpate): Relaxed (Amy Jimenez RN) Resting Tone IUP (mmHg): 30 (Amy Jimenez, RN) Intensity IUP (mmHg): 100 (Amy Jimenez RN) Monitor Mode: External US (Amy Jimenez RN) FHR Baseline Rate : 145 (Amy Jimenez RN) Variability: Moderate 6-25 bpm (Amy Jimenez, RN) Decelerations: Early; Variable (Amy Jimenez RN) Pitocin (milliunit): Pitocin Remains (milliunits) @ 2 (Amy Jimenez RN) IV/Blood Work: IV Infusing per Order; New IV Bag Hung; IV Bag Number @ 2 (Amy Jimenez RN) Datetime: 04/29/2016 11:00 NBP Sys/Brissa/Mean (mmHg): 121 (QS system process) : 65 (QS system process) : 88 (QS system process) Pulse: 68 (QS system process) Respirations: 18 (Amy Jimenez RN) Monitor Mode: Internal; Palpation (Amy Jimenez RN) Frequency (min): 2-3 (Amy Jimenez RN) Quality: Moderate to Strong (Amy Jimenez RN) Duration (sec): 60-80 (Amy Jimenez RN) Resting Tone (Palpate): Relaxed (Amy Jimenez RN) Resting Tone IUP (mmHg): 25 (Amy Jimenez RN) Intensity IUP (mmHg): 100 (Amy Jimenez RN) Contraction Comments: MVU 285 (Amy Jimenez RN) Monitor Mode: External US (Amy Jimenez RN) FHR Baseline Rate : 140 (Amy Jimenez RN) Variability: Moderate 6-25 bpm (Amy Jimenez RN) Decelerations: Early (Amy Jimenez RN) Pitocin (milliunit): Pitocin Remains (milliunits) @ 2 (Amy Jimenez RN) Anesthesia Level Check: T10- Umbilicus (Amy Jimenez RN) LaborFlag: Labor (QS system process) Datetime: 04/29/2016 10:47 NBP Sys/Brissa/Mean (mmHg): 115 (QS system process) : 65 (QS system process) : 84 (QS system process) Pulse: 76 (QS system process) Respirations: 18 (Amy Jimenez RN) LaborFlag: Labor (QS system process) Datetime: 04/29/2016 10:45 NBP Sys/Brissa/Mean (mmHg): 139 (QS system process) : 87 (QS system process) : 109 (QS system process) Pulse: 76 (QS system process) Respirations: 16 (Amy Jimenez RN) Monitor Mode: Internal; Palpation (Amy Jimenez RN) Frequency (min): 2-6 (Amy Jimenez RN) Quality: Moderate to Strong (Amy Jimenez RN) Duration (sec): 60-90 (Amy Jimenez RN) Resting Tone (Palpate): Relaxed (Amy Jimenez RN) Resting Tone IUP (mmHg): 25 (Amy Jimenez RN) Intensity IUP (mmHg): 100 (Amy Jimenez RN) Contraction Comments: Intensity 75-100 (Amy Jimenez RN) Monitor Mode: External US (Amy Jimenez RN) FHR Baseline Rate : 150 (Amy Jimenez RN) Variability: Moderate 6-25 bpm (Amy Jimenez RN) Decelerations: Early (Amy Jimenez RN) Pitocin (milliunit): Pitocin Remains (milliunits) @ 2 (Amy Jimenez RN) LaborFlag: Labor (QS system process) Datetime: 04/29/2016 10:40 Contraction Comments: MVU 235 (Amy Tony, RN) Datetime: 04/29/2016 10:39 Patient Position/Activity: Right Lateral; Peanut Ball (Amy Tony, RN) Datetime: 04/29/2016 10:31 NBP Sys/Brissa/Mean (mmHg): 127 (QS system process) : 73 (QS system process) : 94 (QS system process) Pulse: 72 (QS system process) Respirations: 18 (Amy Tony, RN) LaborFlag: Labor (QS system process) Datetime: 04/29/2016 10:30 Monitor Mode: Internal; Palpation (Amy Jimenez RN) Frequency (min): 2-3 (Amy Jimenez RN) Quality: Moderate (Amy Jimenez, RN) Duration (sec): 60-90 (Amy Jimenez RN) Resting Tone (Palpate): Relaxed (Amy Jimenez RN) Resting Tone IUP (mmHg): 25 (Amy Jimenez, RN) Intensity IUP (mmHg): 100 (Amy Jimenez, RN) Monitor Mode: External US (Amy Jimenez RN) FHR Baseline Rate : 150 (Amy Jimenez RN) Variability: Minimal - Undetectable to <=5 bpm (Amy Jimenez RN) Decelerations: Early (Amy Jimenez RN) Pitocin (milliunit): Pitocin Remains (milliunits) @ 2 (Amy Jimenez RN) Datetime: 04/29/2016 10:16 NBP Sys/Brissa/Mean (mmHg): 133 (QS system process) : 88 (QS system process) : 107 (QS system process) Pulse: 75 (QS system process) Respirations: 16 (Amy Jimenez RN) LaborFlag: Labor (QS system process) Datetime: 04/29/2016 10:15 Monitor Mode: Internal; Palpation (Amy Jimenez, RN) Frequency (min): 2-5 (Amy Jimenez, RN) Quality: Moderate (Amyjuliano Jimenez, RN) Duration (sec): 60-90 (Amyjuliano Jimenez, RN) Resting Tone (Palpate): Relaxed (Amyjuliano Jimenez, RN) Resting Tone IUP (mmHg): 25 (Amyjuliano Jimenez, RN) Intensity IUP (mmHg): 100 (Amyjuliano Jimenez, RN) Monitor Mode: External US (Amy Jimenez, RN) FHR Baseline Rate : 150 (Amy Tony, RN) Variability: Moderate 6-25 bpm (Amy Tony, RN) Decelerations: Early; Variable (Amyjuliano Jimenez, RN) Pitocin (milliunit): Pitocin Remains (milliunits) @ 2 (Amy Tony, RN) Datetime: 04/29/2016 10:14 Communication Comments: Dr Rushing notified of MVU and decreased pitocin to 2millinunits/min (Amy Tony, RN) Datetime: 04/29/2016 10:12 Pitocin (milliunit): Pitocin Decreased to (milliunits) @ 2 (Amy Jimenez RN) Datetime: 04/29/2016 10:11 Contraction Comments: MVU 315 (Amy Jimenez RN) Datetime: 04/29/2016 10:01 NBP Sys/Brissa/Mean (mmHg): 119 (QS system process) : 67 (QS system process) : 88 (QS system process) Pulse: 70 (QS system process) Respirations: 14 (Amy Jimenez RN) Temperature (F): 98.6 (Amy Jimenez RN) Temperature (C): 37.0 (QS system process) Temperature Route: Oral (Amy Jimenez RN) LaborFlag: Labor (QS system process) Datetime: 04/29/2016 10:00 Monitor Mode: Internal; Palpation (Amy Jimenez RN) Frequency (min): 2-4 (Amy Jimenez RN) Quality: Moderate (Amy Jimenez RN) Duration (sec): 60-90 (Amy Jimenez RN) Resting Tone (Palpate): Relaxed (Amy Jimenez RN) Resting Tone IUP (mmHg): 25 (Amy Jimenez RN) Intensity IUP (mmHg): 100 (Amy Jimenez RN) Contraction Comments: MVU 290 (Amy Jimenez RN) Monitor Mode: External US (Amy Jimenez RN) FHR Baseline Rate : 150 (Amy Jimenez RN) Variability: Moderate 6-25 bpm (Amy Jimenez RN) Decelerations: Early; Variable (Amy Jimenez RN) Pitocin (milliunit): Pitocin Remains (milliunits) @ 4 (Amy Jimenez RN) Anesthesia Level Check: T10- Umbilicus (Amy Jimenez RN)
--- NOTE | 2016-04-29 13:44 | L&D Progress Notes ---
PROGRESS NOTES Datetime Report Generated by CPN: 04/29/2016 13:44 PROGRESS NOTE Comment: In to eval pt for deceleration. Pit stopped an dpt repositioned, oxygen applied. Some cervical change since last check but significant molding. Discussed r/b/a of if nonreassuring fhts or arrest of labor. FETUS C SIGNATURE: [id number] Signature: with User ID: [email or web address]
--- NOTE | 2016-04-29 14:00 | L&D Flow Sheet ---
LD Flowsheet Datetime Report Generated by CPN: 04/29/2016 14:00 Datetime: 04/29/2016 13:51 Contraction Comments: MVU 225 (Amy Jimenez RN) Datetime: 04/29/2016 13:45 NBP Sys/Brissa/Mean (mmHg): 128 (QS system process) : 66 (QS system process) : 91 (QS system process) Pulse: 74 (QS system process) Monitor Mode: Internal; Palpation (Amy Jimenez RN) Frequency (min): 3-5 (Amy Tony, RN) Quality: Moderate to Strong (Amy Jimenez RN) Duration (sec): 60-80 (Amy Jimenez RN) Resting Tone (Palpate): Relaxed (Amy Jimenez RN) Resting Tone IUP (mmHg): 25 (Amy Jimenez RN) Intensity IUP (mmHg): 100 (Amy Jimenez, RN) Monitor Mode: External US (Amy Jimenez RN) FHR Baseline Rate : 135 (Amy Jimenez RN) Variability: Moderate 6-25 bpm (Amy Jimenez RN) Accelerations: 10X10 (Amy Jimenez RN) Decelerations: Early (Amy Jimenez RN) LaborFlag: Labor (QS system process) Datetime: 04/29/2016 13:30 Monitor Mode: Internal; Palpation (Amy Jimenez RN) Frequency (min): 3-5 (Amy Jimenez RN) Quality: Moderate to Strong (Amy Jimenez RN) Duration (sec): 60-80 (Amy Jimenez RN) Resting Tone (Palpate): Relaxed (Amy Jimenez RN) Resting Tone IUP (mmHg): 30 (Amy Jimenez RN) Intensity IUP (mmHg): 95 (Amy Jimenez RN) Monitor Mode: External US (Amy Jimenez RN) FHR Baseline Rate : 135 (Amy Jimenez RN) Variability: Moderate 6-25 bpm (Amy Jimenez RN) Accelerations: 15X15 (Amy Jimenez RN) Decelerations: Prolonged (Amy Jimenez RN) IV/Blood Work: IV Bolus Started (Amy Tony, RN) Datetime: 04/29/2016 13:29 Pitocin (milliunit): Pitocin Discontinued (Amy Tony, RN) Oxygen Amount : 10 (Amy Tony, RN) Oxygen Method: Face Mask (Amy Tony, RN) Datetime: 04/29/2016 13:28 Dilatation (cm): 7.0 (Amy Tony, RN) Effacement (%): 90 (Amy Tony, RN) Station: 1 (Amy Tony, RN) Exam by: Dr Neilsen (Amy Tony, RN) Datetime: 04/29/2016 13:27 Patient Position/Activity: Right Lateral (Amy Tony, RN) Datetime: 04/29/2016 13:20 Contraction Comments: MVU 230 (Amy Tony, RN) Datetime: 04/29/2016 13:15 Monitor Mode: Internal; Palpation (Amy Jimenez RN) Frequency (min): 3-6 (Amy Jimenez RN) Quality: Moderate to Strong (Amy Jimenez RN) Duration (sec): 60-80 (Amy Jimenez RN) Resting Tone (Palpate): Relaxed (Amy Jimenez RN) Monitor Mode: External US (Amy Jimenez RN) FHR Baseline Rate : 130 (Amy Jimenez RN) Variability: Moderate 6-25 bpm (Amy Jimenez RN) Accelerations: 10X10 (Amy Jimenez RN) Decelerations: Early (Amy Jimenez RN) Pitocin (milliunit): Pitocin Remains (milliunits) @ 2 (Amy Tony, RN) Patient Position/Activity: Right Lateral (Amy Jimenez, RN) Datetime: 04/29/2016 13:13 Pitocin (milliunit): Pitocin Started (milliunits) @ 2 (Amy Tony, RN) Datetime: 04/29/2016 13:10 Contraction Comments: MVU 135 (Amy Tony, RN) Datetime: 04/29/2016 13:00 NBP Sys/Brissa/Mean (mmHg): 133 (QS system process) : 70 (QS system process) : 96 (QS system process) Pulse: 76 (QS system process) Respirations: 16 (Amy Jimenez RN) Monitor Mode: Internal; Palpation (Amy Jimenez RN) Frequency (min): 2-5 (Amy Jimenez RN) Quality: Moderate to Strong (Amy Jimenez RN) Duration (sec): 60-80 (Amy Jimenez RN) Resting Tone (Palpate): Relaxed (Amy Jimenez RN) Resting Tone IUP (mmHg): 30 (Amy Jimenez RN) Intensity IUP (mmHg): 100 (Amy Jimenez RN) Contraction Comments: MVU 190 (Amy Jimenez RN) Contraction Comments: Intensity 85-100 (Amy Jimenez RN) Monitor Mode: External US (Amy Jimenez RN) FHR Baseline Rate : 135 (Amy Jimenez RN) Variability: Moderate 6-25 bpm (Amy Jimenez RN) Decelerations: Early (Amy Jimenez RN) Anesthesia Level Check: T10- Umbilicus (Amy Jimenez RN) LaborFlag: Labor (QS system process) Datetime: 04/29/2016 12:47 NBP Sys/Brissa/Mean (mmHg): 129 (QS system process) : 65 (QS system process) : 89 (QS system process) Pulse: 76 (QS system process) Respirations: 18 (Amy Jimenez RN) Pitocin (milliunit): Pitocin Discontinued (Amy Jimenez RN) LaborFlag: Labor (QS system process) Datetime: 04/29/2016 12:45 Monitor Mode: Internal; Palpation (Amyjuliano Jimenez, RN) Frequency (min): 2-4 (Amyjuliano Jimenez, RN) Quality: Moderate to Strong (Amy Tony, RN) Duration (sec): 60-90 (Amyjuliano Jimenez, RN) Resting Tone (Palpate): Relaxed (Amy Tony, RN) Resting Tone IUP (mmHg): 30 (Amy Tony, RN) Intensity IUP (mmHg): 100 (Amy Tony, RN) Contraction Comments: Intensity 85-100 (Amyjuliano Jimenez, RN) Monitor Mode: External US (Amy Jimenez, RN) FHR Baseline Rate : 145 (Amy Tony, RN) Variability: Moderate 6-25 bpm (Amy Tony, RN) Decelerations: Early (Amy Toyn, RN) Pitocin (milliunit): Pitocin Remains (milliunits) @ 2 (Amy Tony, RN) Datetime: 04/29/2016 12:43 Patient Position/Activity: Left Lateral (Amy Tony, RN) Datetime: 04/29/2016 12:40 Contraction Comments: MVU 310 (Amy Tony, RN) Datetime: 04/29/2016 12:31 NBP Sys/Brissa/Mean (mmHg): 151 (QS system process) : 70 (QS system process) : 100 (QS system process) Pulse: 72 (QS system process) Respirations: 16 (Amy Jimenez, RN) LaborFlag: Labor (QS system process) Datetime: 04/29/2016 12:30 Monitor Mode: Internal; Palpation (Amy Jimenez RN) Frequency (min): 2-3 (Amy Tony, RN) Quality: Moderate to Strong (Amy Jimenez, RN) Duration (sec): 60-80 (Amy Jimenez RN) Resting Tone (Palpate): Relaxed (Amy Jimenez RN) Resting Tone IUP (mmHg): 30 (Amy Jimenez RN) Intensity IUP (mmHg): 100 (Amy Jimenez, RN) Monitor Mode: External US (Amy Jimenez RN) FHR Baseline Rate : 145 (Amy Jimenez RN) Variability: Moderate 6-25 bpm (Amy Jimenez RN) Decelerations: Early (Amy Jimenez RN) Pitocin (milliunit): Pitocin Remains (milliunits) @ 2 (Amy Jimenez RN) Datetime: 04/29/2016 12:20 Contraction Comments: MVU 280 (Amy Jimenez, RN) Datetime: 04/29/2016 12:15 NBP Sys/Brissa/Mean (mmHg): 109 (QS system process) : 66 (QS system process) : 82 (QS system process) Pulse: 68 (QS system process) Respirations: 18 (Amy Jimenez RN) Monitor Mode: Internal; Palpation (Amy Jimenez RN) Frequency (min): 2-3 (Amy Jimenez RN) Quality: Moderate to Strong (Amy Jimenez RN) Duration (sec): 60-80 (Amy Jimenez RN) Resting Tone (Palpate): Relaxed (Amy Jimenez RN) Resting Tone IUP (mmHg): 30 (Amy Jimenez RN) Intensity IUP (mmHg): 100 (Amy Jimenez RN) Monitor Mode: External US (Amy Jimenez RN) FHR Baseline Rate : 145 (Amy Jimenez RN) Variability: Moderate 6-25 bpm (Amy Jimenez RN) Decelerations: Early (Amy Jimenez RN) Pitocin (milliunit): Pitocin Remains (milliunits) @ 2 (Amy Jimenez RN) LaborFlag: Labor (QS system process) Datetime: 04/29/2016 12:11 Patient Care Comments: bed castillo given for bowel movement (Amy Jimenez RN) Datetime: 04/29/2016 12:00 NBP Sys/Brissa/Mean (mmHg): 116 (QS system process) : 66 (QS system process) : 86 (QS system process) Pulse: 65 (QS system process) Respirations: 18 (Amy Jimenez RN) Temperature (F): 98.4 (Amy Jimenez RN) Temperature (C): 36.9 (QS system process) Temperature Route: Oral (Amy Jimenez RN) Monitor Mode: Internal; Palpation (Amy Jimenez RN) Frequency (min): 2-3 (Amy Jimenez RN) Quality: Moderate to Strong (Amy Jimenez RN) Duration (sec): 60-80 (Amy Jimenez RN) Resting Tone (Palpate): Relaxed (Amy Jimenez RN) Resting Tone IUP (mmHg): 30 (Amy Jimenez RN) Intensity IUP (mmHg): 100 (Amy Jimenez RN) Monitor Mode: External US (Amy Jimenez RN) FHR Baseline Rate : 135 (Amy Jimenez RN) Variability: Moderate 6-25 bpm (Amy Jimenez RN) Decelerations: Early (Amy Jimenez RN) Pain Scale: 1 (Aym Jimenez RN) Pain Presence: Intermittent (Amy Jimenez RN) Pain Type: Contraction; Pressure (Amy Jimenez RN) Pain Location: Abdomen; Perineum (Amy Jimenez RN) Pain Goal: 2 (Amy Jimenez RN) Pain Relief Measures: Comfort Measures (Amy Jimenez RN) Pain Coping: Talking Through Contractions (Amy Jimenez RN) Pitocin (milliunit): Pitocin Remains (milliunits) @ 2 (Amy Jimenez RN) Anesthesia Level Check: T10- Umbilicus (Amy Jimenez RN) LaborFlag: Labor (QS system process)
[2016-04-29] MEDS ORDERED: OXYTOCIN/NORMAL SALINE 20 UNIT/1,000 ML RTUINJ ONE (14:38)
[2016-04-29] MEDS ORDERED: MISOPROSTOL 0.2 MG TABLET ONE (14:38)
[2016-04-29] MEDS ORDERED: LIDOCAINE 1% INJ-PF (10 MG/ML) 30 ML SDV ONE (14:38)
[2016-04-29] MEDS ORDERED: ZOLPIDEM TARTRATE 5 MG TABLET PO PRN (15:17)
[2016-04-29] MEDS ORDERED: DIPH/PERTUSS(ACELL)/TETANUS VAC/PF 0.5 ML SYR (>=10YO) IM PRN (15:17)
[2016-04-29] MEDS ORDERED: ACETAMINOPHEN WITH CODEINE #3 TABLET PO PRN (15:17)
[2016-04-29] MEDS ORDERED: MISOPROSTOL 0.2 MG TABLET PR PRN (15:17)
[2016-04-29] MEDS ORDERED: DIBUCAINE 1% OINTMENT 28 GM TP PRN (15:17)
[2016-04-29] MEDS ORDERED: OXYTOCIN/NORMAL SALINE 1,000 ML IV PRN (15:17)
[2016-04-29] MEDS ORDERED: BENZOCAINE/MENTHOL AEROSOL SPRAY 56 ML TOP PRN (15:17)
[2016-04-29] MEDS ORDERED: MEASLES,MUMPS&RUBELLA VACC/PF 0.5 ML VIAL SUBCUT PRN (15:17)
--- NOTE | 2016-04-29 16:00 | L&D Flow Sheet ---
LD Flowsheet Datetime Report Generated by CPN: 04/29/2016 16:00 Datetime: 04/29/2016 15:46 NBP Sys/Brissa/Mean (mmHg): 123 (QS system process) : 75 (QS system process) : 92 (QS system process) Pulse: 81 (QS system process) Respirations: 16 (Amy Jimenez, RN) Datetime: 04/29/2016 15:30 NBP Sys/Brissa/Mean (mmHg): 130 (QS system process) : 84 (QS system process) : 104 (QS system process) Pulse: 70 (QS system process) Respirations: 16 (Amy Tony, RN) Pain Scale: 0 (Amy Tony, RN) Pain Presence: None/Denies (Amy Tony, RN) Pain Type: N/A (May Tony, RN) Datetime: 04/29/2016 15:00 NBP Sys/Brissa/Mean (mmHg): 130 (QS system process) : 70 (QS system process) : 95 (QS system process) Pulse: 81 (QS system process) Respirations: 18 (Amy Tony, RN) Datetime: 04/29/2016 14:54 Cervical Ripening Agents: [facility] [place] [facility] Rushing (Amy Tony, RN) Datetime: 04/29/2016 14:51 Stage 2 Comments: Intact placenta, to pathology per Dr. Neilsen (Amy Tony, RN) Datetime: 04/29/2016 14:50 Medication Comments: NS w/ 20units pitocin IVF bolus (Amy Tony, RN) Datetime: 04/29/2016 14:49 Stage of : Recovery (Amy Tony, RN) Datetime: 04/29/2016 14:48 Stage 2 Comments: Viable baby boy, see delivery summary (Amy Jimenez, RN) Datetime: 04/29/2016 14:45 Monitor Mode: Internal; Palpation (Amy Jimenez, RN) Frequency (min): 2-4 (Amy Jimenez, RN) Quality: Moderate to Strong (Amy Tony, RN) Duration (sec): 60-80 (Amy Tony, RN) Resting Tone (Palpate): Relaxed (Amy Tony, RN) Resting Tone IUP (mmHg): 30 (Amy Tony, RN) Intensity IUP (mmHg): 100 (Amy Tony, RN) Monitor Mode: External US (Amy Tony, RN) FHR Baseline Rate : 135 (Amy Tony, RN) Variability: Moderate 6-25 bpm (Amy Tony, RN) Accelerations: 15X15 (Amy Tony, RN) Decelerations: Variable; Prolonged (Amy Tony, RN) Pitocin (milliunit): Pitocin Remains (milliunits) @ 2 (Amy Tony, RN) Datetime: 04/29/2016 14:43 Contraction Comments: IUPC removed (Amy Jimenez, RN) Datetime: 04/29/2016 14:35 I/O Interventions: Cole Discontinued (Amy Jimenez, RN) Datetime: 04/29/2016 14:34 Comments: RN and provider remain at bedside continuously assessing FHR while patient pushing (Amy Jimenez RN) Dilatation (cm): 10.0 (Amy Jimenez RN) Effacement (%): 100 (Amy Jimenez RN) Station: 2 (Amy Jimenez RN) Exam by: Dr Rushing (Amy Jimenez RN) Datetime: 04/29/2016 14:31 NBP Sys/Brissa/Mean (mmHg): 140 (QS system process) : 78 (QS system process) : 102 (QS system process) Pulse: 114 (QS system process) LaborFlag: Labor (QS system process) Datetime: 04/29/2016 14:30 Monitor Mode: Internal; Palpation (Amy Jimenez RN) Frequency (min): 3-5 (Amy Jimenez RN) Quality: Moderate to Strong (Amy Jimenez RN) Duration (sec): 60-90 (Amy Jimenez RN) Resting Tone (Palpate): Relaxed (Amy Jimenez RN) Resting Tone IUP (mmHg): 25 (Amy Jimenez RN) Intensity IUP (mmHg): 100 (Amy Jimenez RN) Monitor Mode: External US (Amy Jimenez RN) FHR Baseline Rate : 145 (Amy Jimenez RN) Variability: Moderate 6-25 bpm (Amy Jimenez RN) Accelerations: 15X15 (Amy Jimenez RN) Decelerations: Variable (Amy Jimenez RN) Pitocin (milliunit): Pitocin Remains (milliunits) @ 2 (Amy Jimenez RN) Datetime: 04/29/2016 14:26 Pitocin (milliunit): Pitocin Started (milliunits) @ 2 (Amy Tony, RN) Datetime: 04/29/2016 14:23 Dilatation (cm): 9.0 (Amy Tony, RN) Effacement (%): 90 (Amy Tony, RN) Station: 1 (Amy Tony, RN) Exam by: Dr. Rushing (Amy Tony, RN) Datetime: 04/29/2016 14:15 NBP Sys/Brissa/Mean (mmHg): 129 (QS system process) : 73 (QS system process) : 94 (QS system process) Pulse: 76 (QS system process) Monitor Mode: Internal; Palpation (Amy Jimenez RN) Frequency (min): 2-5 (Amy Jimenez RN) Quality: Moderate to Strong (Amyjuliano Jimenez, RN) Duration (sec): 60-80 (Amy Jimenez RN) Resting Tone (Palpate): Relaxed (Amy Jimenez RN) Resting Tone IUP (mmHg): 25 (Amyjuliano Jimenez, RN) Intensity IUP (mmHg): 100 (Amyjuliano Jimenez, RN) Monitor Mode: External US (Amy Jimenez RN) FHR Baseline Rate : 145 (Amy Jimenez RN) Variability: Moderate 6-25 bpm (Amyjuliano Jimenez, RN) Accelerations: 10X10 (Amyjuliano Jimenez, RN) Decelerations: Early (Amyjuliano Jimenez, RN) LaborFlag: Labor (QS system process) Datetime: 04/29/2016 14:10 Contraction Comments: MVU 225 (Amy Tony, RN) Datetime: 04/29/2016 14:00 NBP Sys/Brissa/Mean (mmHg): 128 (QS system process) : 71 (QS system process) : 93 (QS system process) Pulse: 77 (QS system process) Temperature (F): 98.3 (Amy Jimenez RN) Temperature (C): 36.8 (QS system process) Temperature Route: Oral (Amy Jimenez RN) Monitor Mode: Internal; Palpation (Amy Jimenez RN) Frequency (min): 5 (Amy Jimenez RN) Quality: Moderate to Strong (Amy Jimenez RN) Duration (sec): 60-80 (Amy Jimenez RN) Resting Tone (Palpate): Relaxed (Amy Jimenez RN) Resting Tone IUP (mmHg): 25 (Amy Jimenez RN) Intensity IUP (mmHg): 100 (Amy Jimenez RN) Monitor Mode: External US (Amy Jimenez RN) FHR Baseline Rate : 140 (Amy Jimenez RN) Variability: Moderate 6-25 bpm (Amy Jimenez RN) Decelerations: Early; Variable (Amy Jimenez RN) Anesthesia Level Check: T10- Umbilicus (Amy Jimenez RN) LaborFlag: Labor (QS system process)
--- NOTE | 2016-04-29 16:46 | Delivery Summary ---
Del Sum A-C Datetime Report Generated by CPN: 04/29/2016 16:46 ADMISSION DATA Chief Complaint: Other Chief Complaint Comments: sent from [facility] for Olig[place], 40.1 ELIA 2.7 Indication for Induction: Oligohydramnios Admission Impression: Term, Intrauterine ; No Active Labor; Intact Membranes Admit Provider Comments: cervix, FT/th/posterior, vertex is engaged DELIVERY PERSONNEL Delivery Doctor:: Shruthi Rushing MD Labor and Delivery Nurse:: Amy Jimenez RN Nursery Nurse:: Ysabel Frausto RN Dairy Husbandman/SCHOLASTIC APTITUDE TEST GRADER: Bertha Luther, STATEMENT CLERKS MANAGER MATERNAL INFORMATION Delivery Anesthesia: Epidural Medications After Delivery: Pitocin Bolus-Please Comment Meds After Delivery Comment: Pitocin 20 units 1000mL NSS Estimated Blood Loss (ml): 400 Maternal Complications: None Provider Comments: Pt progressed to complete and pushing. Head delivered THERESE withcompond hand. Post hand grasped and post shoulder delivered followed by rest of body. KNIT [employer] PRESS HAND/OP bulb suctoned. Cord clamped and cut. Placenta spont and intact. Male infant with apgars 8 and 9. Cytotec 1000 mcg placed pr given prolonged induction. LABOR SUMMARY EDC: 04/26/2016 00:00 No. Babies in Womb: 1 Attempted: No Labor Anesthesia: Epidural LABOR INFORMATION Reason for Induction: Oligohydramnios Onset of Labor: 04/29/2016 07:48 Complete Dilatation: 04/29/2016 14:34 Cervical Ripening Agents: Cytotec @ [address] [place] [address] [place] [address] Rushing Oxytocin: Induction Group B Beta Strep: negative Antibiotics # of Doses: 0 Steroids Given: None Reason Steroids Not Administered: Not Applicable MEMBRANES Membranes Rupture Method: Artificial Rupture of Membranes: 04/29/2016 09:48 Length of Rupture (hr): 5.00 Amniotic Fluid Color: Clear Amniotic Fluid Amount: Scant Amniotic Fluid Odor: Normal STAGES OF LABOR Stage 1 hr: 6 Stage 1 min: 46 Stage 2 hr: 0 Stage 2 min: 14 Stage 3 hr: 0 Stage 3 min: 3 Total Time in Labor hr: 7 Total Time in Labor min: 3 VAGINAL DELIVERY Episiotomy: None Laceration Extension: First Degree Laceration Repair: Yes Laceration Repair Note: First degree left labial lac repaired with 3-0 chromic. Sponge Count Correct: N/A CSECTION DELIVERY Primary Indication: N/A Secondary Indication: N/A CSection Urgency: N/A CSection Incidence: N/A Labor: N/A Elective: N/A CSection Incision: N/A BABY A INFORMATION Infant Delivery Date/Time: 04/29/2016 14:48 Method of Delivery: Vaginal Born in Route : No : N/A Forceps: N/A Vacuum Extraction: N/A Shoulder Dystocia : Yes PRESENTATION/POSITION BABY A Presentation: Breech Cephalic Presentation: Vertex Vertex Position: Right Occipital Anterior Breech Presentation: N/A PLACENTA INFORMATION BABY A Placenta Delivery Time : 04/29/2016 14:51 Placenta Method of Delivery: Spontaneous Placenta Status: Delivered SCORES BABY A Heart Rate 1 min: >100 bpm Resp Effort 1 min: Good Cry Reflex Irritability 1 min: Cough or Sneeze or Pulls Away Muscle Tone 1 min: Active Motion Color 1 min: Blue/Pale Resuscitation Effort 1 min: Tactile Stimulation SCORE 1 MIN: 8 Heart Rate 5 min: >100 bpm Resp Effort 5 min: Good Cry Reflex Irritability 5 min: Cough or Sneeze or Pulls Away Muscle Tone 5 min: Active Motion Color 5 min: Body [place], Extremities Blue Resuscitation Effort 5 min: Tactile Stimulation SCORE 5 MIN: 9 INFORMATION BABY A Gestational Age at Delivery: 40.3 Gestational Status: Full Term- 39- 40.6 Weeks Outcome : Liveborn Condition : Stable Sex: Male IDENTIFICATION BABY A Verification Date/Time: 04/29/2016 15:21 ID Band Number: [id number] Mother's Name Verified: Yes RN Verifying Infant: Bernadette Jimenez RNC Additional Verifying Personnel: Jermain Frausto RN WEIGHT/LENGTH BABY A Birthweight (gm): 3350 Infant Weight (lb): 7 Infant Weight (oz): 6 Infant Length (in): 21.00 Infant Length (cm): 53.34 CORD INFORMATION BABY A No. Cord Vessels: 3 Nuchal Cord : N/A Cord Blood Taken: Yes-For Storage (Mom's Blood type +) Suction: None ASSESSMENT BABY A Complications: Multiple Variable Decels Physical Findings at Delivery: Within Normal Limits; Caput Succedaneum; Molding of the Head; Bruising Respirations: Appears Normal Skin to Skin: Yes Skin to Skin Time (min): 60 Lead Mason Tender/ALS Called : No Infant Care By: Jermain Frausto RN Transferred To: Nursery BABY B INFORMATION : N/A SIGNATURES Signature: with User ID: [email or web address] : I was personally available for consultation and serving as supervising physician for the MLP. : I personally evaluated and examined the patient in conjunction with the MLP and agree with the assessment, treatment plan and disposition.
--- NOTE | 2016-04-29 17:41 | Admission Physical ---
Datetime Report Generated by CPN: 04/29/2016 17:41 CURRENT ADMISSION Chief Complaint: Other Chief Complaint Other: sent from [facility] for [place], 40.1 ELIA 2.7 Indication for Induction: Oligohydramnios Admit Plan: Admit to Unit; Initiate Labor Induction Protocol Admit Plan- Other: cervidil tonight, pitocin in AM ALLERGIES Medication Allergies: No Medication Allergies: No Known Allergies (04/27/2016) Latex: No Latex Allergies Food Allergies: denies Environmental Allergies: denies OBSTETRICAL HISTORY EDC: 04/26/2016 00:00 : 2 Para: 0 Term: 0 : 0 SAB: 0 IAB: 1 Ectopic: 0 Livin Cesareans: 0 VBACs: 0 Multiple Births: 0 Gestational Diabetes: No Rh Sensitization: No Incompetent Cervix: No DOROTEO: No Infertility: No ART Treatment: No Uterine Anomaly: No IUGR: No Hx Previous C/S: No Macrosomia: No Hx Loss/Stillborn: No PIH: No Hx : No Placenta Previa/Abruption: No Depression/PP Depression: No PTL/PROM: No Post Hemorrhage: No Current Procedures: Ultrasound; NST Obstetrical History Comments: G1: G2: current , growth lag?, oligo 04/27 SEE RECORDS Alcohol: No Marijuana : No Cocaine: No Other Illicit Drugs: No Cigarettes: Former Smoker. 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 Surgery: No Heart Disease: No Hosp/Surgery: No Autoimmune Disorder: No Anesthetic Complications: No Kidney Disease: No Abnormal Pap Smear: No Neuro/Epilepsy: No Psychiatric Disorders: No Other Medical Diseases: No Hepatitis/Liver Disease: No Significant Family History: No Varicosities/Phlebitis: No Trauma/Violence : No Thyroid Dysfunction: No INFECTIOUS HISTORY Gonorrhea: No Genital Herpes: No Chlamydia: No Tuberculosis: No Syphilis: No Hepatitis: No HIV/AIDS Exposure: No Rash or Viral Illness: No HPV: No PHYSICAL EXAM General: Normal HEENT: Deferred Neurologic: Deferred Thyroid: Deferred Heart: Normal Lungs: Normal Breast: Deferred Back: Deferred Abdomen: Normal Genitourinary Exam: Normal Extremities: Deferred DTRs: Deferred Pelvic Type: Adequate VAGINAL EXAM Dilatation: 1 Effacement: 70 Station: -2 MEMBRANES Membranes: Intact FETUS A EGA: 40.1 Monitoring: External US FHR- Baseline: 140 Variability: Moderate 6-25bpm Accelerations: 15X15 Decelerations: None Presentation: Vertex Admit Comment: cervix, FT/th/posterior, vertex is engaged PLANS FOR LABOR AND DELIVERY Labor and Delivery: None Pain Management: Epidural Feeding Preference: Breast Benefit of Breast Feed Discussed: Yes Circumcision: Yes INFORMED CONSENT Assignment: Hailey Topete MD Signature: with User ID: [email or web address] : with User ID: [email or web address] : I personally evaluated and examined the patient in conjunction with the MLP and agree with the assessment, treatment plan and disposition.
[2016-04-29] MEDS ORDERED: INFLUENZA ADLT QUAD (36MOS+) 2016-17 VAC 0.5 ML SYR IM PRN (17:52)
[2016-04-29] MEDS: FERROUS SULFATE 325 MG TABLET PO SCH (18:05)
[2016-04-29] MEDS: DOCUSATE SODIUM 100 MG CAPSULE PO SCH (18:06)
[2016-04-29] MEDS: ACETAMINOPHEN WITH CODEINE #3 TABLET PO PRN (18:28)
--- NOTE | 2016-04-29 19:01 | L&D Flow Sheet ---
LD Flowsheet Datetime Report Generated by CPN: 04/29/2016 19:00 Datetime: 04/29/2016 16:15 NBP Sys/Brissa/Mean (mmHg): 165 (QS system process) : 82 (QS system process) : 117 (QS system process) Pulse: 67 (QS system process) Respirations: 18 (Amy Tony, RN) Datetime: 04/29/2016 16:04 NBP Sys/Brissa/Mean (mmHg): 163 (QS system process) : 77 (QS system process) : 111 (QS system process) Pulse: 70 (QS system process) Datetime: 04/29/2016 15:46 NBP Sys/Brissa/Mean (mmHg): 123 (QS system process) : 75 (QS system process) : 92 (QS system process) Pulse: 81 (QS system process) Respirations: 16 (Amy Tony, RN) Datetime: 04/29/2016 15:30 NBP Sys/Brissa/Mean (mmHg): 130 (QS system process) : 84 (QS system process) : 104 (QS system process) Pulse: 70 (QS system process) Respirations: 16 (Amy Jimenez RN) Pain Scale: 0 (Amy Jimenez RN) Pain Presence: None/Denies (Amy Jimenez RN) Pain Type: N/A (Amy Jimenez RN) Datetime: 04/29/2016 15:00 NBP Sys/Brissa/Mean (mmHg): 130 (QS system process) : 70 (QS system process) : 95 (QS system process) Pulse: 81 (QS system process) Respirations: 18 (Amy Tony, RN) Datetime: 04/29/2016 14:54 Cervical Ripening Agents: Cyt[facility] @ [facility] [place] by Dr Сергей (Amy Tony, RN) Datetime: 04/29/2016 14:51 Stage 2 Comments: Intact placenta, to pathology per Dr. Сергей (Amy Tony, RN) Datetime: 04/29/2016 14:50 Medication Comments: NS w/ 20units pitocin IVF bolus (Amy Tony, RN) Datetime: 04/29/2016 14:49 Stage of : Recovery (Amy Tony, RN) Datetime: 04/29/2016 14:48 Stage 2 Comments: Viable baby boy, see delivery summary (Amy Tony, RN) Datetime: 04/29/2016 14:45 Monitor Mode: Internal; Palpation (Amy Tony, RN) Frequency (min): 2-4 (Amy Tony, RN) Quality: Moderate to Strong (Amy Tony, RN) Duration (sec): 60-80 (Amy Tony, RN) Resting Tone (Palpate): Relaxed (Amy Tony, RN) Resting Tone IUP (mmHg): 30 (Amy Tony, RN) Intensity IUP (mmHg): 100 (Amy Tony, RN) Monitor Mode: External US (Amy Tony, RN) FHR Baseline Rate : 135 (Amy Tony, RN) Variability: Moderate 6-25 bpm (Amy Tony, RN) Accelerations: 15X15 (Amy Tony, RN) Decelerations: Variable; Prolonged (Amy Tony, RN) Pitocin (milliunit): Pitocin Remains (milliunits) @ 2 (Amy Tony, RN) Datetime: 04/29/2016 14:43 Contraction Comments: IUPC removed (Amy Tony, RN) Datetime: 04/29/2016 14:35 I/O Interventions: Laws Discontinued (Amy Jimenez RN) Datetime: 04/29/2016 14:34 Comments: RN and provider remain at bedside continuously assessing FHR while patient pushing (Amy Jimenez RN) Dilatation (cm): 10.0 (Amy Jimenez RN) Effacement (%): 100 (Amy Jimenez RN) Station: 2 (Amy Jimenez RN) Exam by: Dr Rushing (Amy Jimenez RN) Datetime: 04/29/2016 14:31 NBP Sys/Brissa/Mean (mmHg): 140 (QS system process) : 78 (QS system process) : 102 (QS system process) Pulse: 114 (QS system process) LaborFlag: Labor (QS system process) Datetime: 04/29/2016 14:30 Monitor Mode: Internal; Palpation (Amy Jimenez RN) Frequency (min): 3-5 (Amy Jimenez, RN) Quality: Moderate to Strong (Amy Jimenez, RN) Duration (sec): 60-90 (Amy Jimenez, RN) Resting Tone (Palpate): Relaxed (Amy Jimenez RN) Resting Tone IUP (mmHg): 25 (Amy Jimenez, RN) Intensity IUP (mmHg): 100 (Amy Jimenez, RN) Monitor Mode: External US (Amy Jimenez, RN) FHR Baseline Rate : 145 (Amy Jimenez, RN) Variability: Moderate 6-25 bpm (Amy Jimenez, RN) Accelerations: 15X15 (Amyjuliano Jimenez, RN) Decelerations: Variable (Amy Jimenez, RN) Pitocin (milliunit): Pitocin Remains (milliunits) @ 2 (Amy Jimenez RN) Datetime: 04/29/2016 14:26 Pitocin (milliunit): Pitocin Started (milliunits) @ 2 (Amy Jimenez RN) Datetime: 04/29/2016 14:23 Dilatation (cm): 9.0 (Amy Jimenez RN) Effacement (%): 90 (Amy Jimenez RN) Station: 1 (Amy Jimenez RN) Exam by: Dr. Rushing (Amy Jimenez RN) Datetime: 04/29/2016 14:15 NBP Sys/Brissa/Mean (mmHg): 129 (QS system process) : 73 (QS system process) : 94 (QS system process) Pulse: 76 (QS system process) Monitor Mode: Internal; Palpation (Amy Jimenez RN) Frequency (min): 2-5 (Amy Jimenez RN) Quality: Moderate to Strong (Amy Jimenez RN) Duration (sec): 60-80 (Amy Jimenez RN) Resting Tone (Palpate): Relaxed (Amy Jimenez RN) Resting Tone IUP (mmHg): 25 (Amy Jimenez RN) Intensity IUP (mmHg): 100 (Amy Jimenez RN) Monitor Mode: External US (Amy Jimenez RN) FHR Baseline Rate : 145 (Amy Jimenez RN) Variability: Moderate 6-25 bpm (mAy Jimenez RN) Accelerations: 10X10 (Amy Jimenez RN) Decelerations: Early (Amy Jimenez RN) LaborFlag: Labor (QS system process) Datetime: 04/29/2016 14:10 Contraction Comments: MVU 225 (Amy Jimenez RN) Datetime: 04/29/2016 14:00 NBP Sys/Brissa/Mean (mmHg): 128 (QS system process) : 71 (QS system process) : 93 (QS system process) Pulse: 77 (QS system process) Temperature (F): 98.3 (Amy Jimenez RN) Temperature (C): 36.8 (QS system process) Temperature Route: Oral (Amy Jimenez RN) Monitor Mode: Internal; Palpation (Amy Jimenez RN) Frequency (min): 5 (Amy Jimenez RN) Quality: Moderate to Strong (Amy Jimenez RN) Duration (sec): 60-80 (Amy Jimenez RN) Resting Tone (Palpate): Relaxed (Amy Jimenez RN) Resting Tone IUP (mmHg): 25 (Amy Jimenez RN) Intensity IUP (mmHg): 100 (Amy Jimenez RN) Monitor Mode: External US (Amy Jimenez RN) FHR Baseline Rate : 140 (Amy Jimenez RN) Variability: Moderate 6-25 bpm (Amy Jimenez RN) Decelerations: Early; Variable (Amy Jimenez RN) Anesthesia Level Check: T10- Umbilicus (Amy Jimenez RN) LaborFlag: Labor (QS system process) Datetime: 04/29/2016 13:51 Contraction Comments: MVU 225 (Amy Jimenez RN) Datetime: 04/29/2016 13:45 NBP Sys/Brissa/Mean (mmHg): 128 (QS system process) : 66 (QS system process) : 91 (QS system process) Pulse: 74 (QS system process) Monitor Mode: Internal; Palpation (Amy Jimenez, RN) Frequency (min): 3-5 (Amy Jimenez RN) Quality: Moderate to Strong (Amy Jimenez RN) Duration (sec): 60-80 (Amy Jimenez, RN) Resting Tone (Palpate): Relaxed (Amyjuliano Jimenez, RN) Resting Tone IUP (mmHg): 25 (Amy Tony, RN) Intensity IUP (mmHg): 100 (Amy Tony, RN) Monitor Mode: External US (Amy Jimenez, RN) FHR Baseline Rate : 135 (Amy Tony, RN) Variability: Moderate 6-25 bpm (Amy Tony, RN) Accelerations: 10X10 (Amyjuliano Jimenez, RN) Decelerations: Early (Amy Jimenez RN) LaborFlag: Labor ([employer] system process) Datetime: 04/29/2016 13:30 Monitor Mode: Internal; Palpation (Amy Jimenez RN) Frequency (min): 3-5 (Amy Jimenez RN) Quality: Moderate to Strong (Amy Jimenez RN) Duration (sec): 60-80 (Amyjuliano Jimenez, RN) Resting Tone (Palpate): Relaxed (Amyjuliano Jimenez, RN) Resting Tone IUP (mmHg): 30 (Amyjuliano Jimenez, RN) Intensity IUP (mmHg): 95 (Amyjuliano Jimenez, RN) Monitor Mode: External US (Amyjuliano Jimenez, RN) FHR Baseline Rate : 135 (Amy Tony, RN) Variability: Moderate 6-25 bpm (Amy Tony, RN) Accelerations: 15X15 (Amy Tony, RN) Decelerations: Prolonged (Amyjuliano Jimenez, RN) IV/Blood Work: IV Bolus Started (Amy Tony, RN) Datetime: 04/29/2016 13:29 Pitocin (milliunit): Pitocin Discontinued (Amy Tony, RN) Oxygen Amount : 10 (Amy Tony, RN) Oxygen Method: Face Mask (Amy Tony, RN) Datetime: 04/29/2016 13:28 Dilatation (cm): 7.0 (Amy Tony, RN) Effacement (%): 90 (Amy Tony, RN) Station: 1 (Amy Jimenez, RN) Exam by: Dr Rushing (Amy Tony, RN) Datetime: 04/29/2016 13:27 Patient Position/Activity: Right Lateral (Amyjuliano Espinosaie, RN) Datetime: 04/29/2016 13:20 Contraction Comments: MVU 230 (Amy Jimenez, RN) Datetime: 04/29/2016 13:15 Monitor Mode: Internal; Palpation (Amy Jimenez RN) Frequency (min): 3-6 (Amy Jimenez RN) Quality: Moderate to Strong (Amy Jimenez RN) Duration (sec): 60-80 (Amy Jimenez RN) Resting Tone (Palpate): Relaxed (Amy Jimenez RN) Monitor Mode: External US (Amy Jimenez RN) FHR Baseline Rate : 130 (Amy Jimenez RN) Variability: Moderate 6-25 bpm (Amy Jimenez RN) Accelerations: 10X10 (Amy Jimenez RN) Decelerations: Early (Amy Tony, RN) Pitocin (milliunit): Pitocin Remains (milliunits) @ 2 (Amy Tony, RN) Patient Position/Activity: Right Lateral (Amy Jimenez, RN) Datetime: 04/29/2016 13:13 Pitocin (milliunit): Pitocin Started (milliunits) @ 2 (Amy Jimenez, RN) Datetime: 04/29/2016 13:10 Contraction Comments: MVU 135 (Amy Tony, RN) Datetime: 04/29/2016 13:00 NBP Sys/Brissa/Mean (mmHg): 133 (QS system process) : 70 (QS system process) : 96 (QS system process) Pulse: 76 (QS system process) Respirations: 16 (Amy Jimenez RN) Monitor Mode: Internal; Palpation (Amy Jimenez RN) Frequency (min): 2-5 (Amy Jimenez RN) Quality: Moderate to Strong (mAy Jimenez RN) Duration (sec): 60-80 (Amy Jimenez RN) Resting Tone (Palpate): Relaxed (Amy Jimenez RN) Resting Tone IUP (mmHg): 30 (Amy Jimenez RN) Intensity IUP (mmHg): 100 (Amy Jimenez RN) Contraction Comments: MVU 190 (Amy Jimenez RN) Contraction Comments: Intensity 85-100 (Amy Jimenez RN) Monitor Mode: External US (Amy Jimenez RN) FHR Baseline Rate : 135 (Amy Jimenez RN) Variability: Moderate 6-25 bpm (Amy Jimenez RN) Decelerations: Early (Amy Jiemnez RN) Anesthesia Level Check: T10- Umbilicus (Amy Jimenez RN) LaborFlag: Labor (QS system process) Datetime: 04/29/2016 12:47 NBP Sys/Brissa/Mean (mmHg): 129 (QS system process) : 65 (QS system process) : 89 (QS system process) Pulse: 76 (QS system process) Respirations: 18 (Amy Jimenez RN) Pitocin (milliunit): Pitocin Discontinued (Amy Jimenez RN) LaborFlag: Labor (QS system process) Datetime: 04/29/2016 12:45 Monitor Mode: Internal; Palpation (Amy Jimenez RN) Frequency (min): 2-4 (Amy Jimenez RN) Quality: Moderate to Strong (Amy Jimenez RN) Duration (sec): 60-90 (Amy Jimenez, RN) Resting Tone (Palpate): Relaxed (Amy Jimenez RN) Resting Tone IUP (mmHg): 30 (Amy Jimenez RN) Intensity IUP (mmHg): 100 (Amy Jimenez, RN) Contraction Comments: Intensity 85-100 (Amy Jimenez, RN) Monitor Mode: External US (Amy Jimenez, RN) FHR Baseline Rate : 145 (Amy Jimenez RN) Variability: Moderate 6-25 bpm (Amy Jimenez, RN) Decelerations: Early (Amy Jimenez, RN) Pitocin (milliunit): Pitocin Remains (milliunits) @ 2 (Amy Jimenez RN) Datetime: 04/29/2016 12:43 Patient Position/Activity: Left Lateral (Amy Tony, RN) Datetime: 04/29/2016 12:40 Contraction Comments: MVU 310 (Amy Tony, RN) Datetime: 04/29/2016 12:31 NBP Sys/Brissa/Mean (mmHg): 151 (QS system process) : 70 (QS system process) : 100 (QS system process) Pulse: 72 (QS system process) Respirations: 16 (Amy Jimenez RN) LaborFlag: Labor (QS system process) Datetime: 04/29/2016 12:30 Monitor Mode: Internal; Palpation (Amy Jimenez, RN) Frequency (min): 2-3 (Amy Jimenez, RN) Quality: Moderate to Strong (Amy Jimenez, RN) Duration (sec): 60-80 (Amy Jiemnez, RN) Resting Tone (Palpate): Relaxed (Amy Jimenez, RN) Resting Tone IUP (mmHg): 30 (Amy Jimenez, RN) Intensity IUP (mmHg): 100 (Amy Jimenez, RN) Monitor Mode: External US (Amy Jimenez, RN) FHR Baseline Rate : 145 (Amy Jimenez, RN) Variability: Moderate 6-25 bpm (Amy Jimenez, RN) Decelerations: Early (Amy Jmienez RN) Pitocin (milliunit): Pitocin Remains (milliunits) @ 2 (Amy Jimenez, RN) Datetime: 04/29/2016 12:20 Contraction Comments: MVU 280 (Amy Jimenez, RN) Datetime: 04/29/2016 12:15 NBP Sys/Brissa/Mean (mmHg): 109 (QS system process) : 66 (QS system process) : 82 (QS system process) Pulse: 68 (QS system process) Respirations: 18 (Amy Jimenez RN) Monitor Mode: Internal; Palpation (Amy Jimenez RN) Frequency (min): 2-3 (Amy Jimenez RN) Quality: Moderate to Strong (Amy Jimenez RN) Duration (sec): 60-80 (Amy Jimenez RN) Resting Tone (Palpate): Relaxed (Amy Jimenez RN) Resting Tone IUP (mmHg): 30 (Amy Jimenez RN) Intensity IUP (mmHg): 100 (Amy Jimenez RN) Monitor Mode: External US (Amy Jimenez RN) FHR Baseline Rate : 145 (Amy Jimenez RN) Variability: Moderate 6-25 bpm (Amy Jimenez RN) Decelerations: Early (Amy Jimenez RN) Pitocin (milliunit): Pitocin Remains (milliunits) @ 2 (Amy Jimenez RN) LaborFlag: Labor (QS system process) Datetime: 04/29/2016 12:11 Patient Care Comments: bed castillo given for bowel movement (Amy Jimenez RN) Datetime: 04/29/2016 12:00 NBP Sys/Brissa/Mean (mmHg): 116 (QS system process) : 66 (QS system process) : 86 (QS system process) Pulse: 65 (QS system process) Respirations: 18 (Amy Jimenez RN) Temperature (F): 98.4 (Amy Jimenez RN) Temperature (C): 36.9 (QS system process) Temperature Route: Oral (Amy Jimenez RN) Monitor Mode: Internal; Palpation (Amy Jimenez RN) Frequency (min): 2-3 (Amy Jimenez RN) Quality: Moderate to Strong (Amy Jimenez RN) Duration (sec): 60-80 (Amy Jimenez RN) Resting Tone (Palpate): Relaxed (Amy Jimenez RN) Resting Tone IUP (mmHg): 30 (Amy Jimenez RN) Intensity IUP (mmHg): 100 (Amy Jimenez RN) Monitor Mode: External US (Amy Jimenez RN) FHR Baseline Rate : 135 (Amy Jimenez RN) Variability: Moderate 6-25 bpm (Amy Jimenez RN) Decelerations: Early (Amy Jimenez RN) Pain Scale: 1 (Amy Jimenez RN) Pain Presence: Intermittent (Amy Jimenez RN) Pain Type: Contraction; Pressure (Amy Jimenez RN) Pain Location: Abdomen; Perineum (Amy Jimenez RN) Pain Goal: 2 (Amy Jimenez RN) Pain Relief Measures: Comfort Measures (Amy Jimenez RN) Pain Coping: Talking Through Contractions (Amy Jimenez RN) Pitocin (milliunit): Pitocin Remains (milliunits) @ 2 (Amy Jimenez RN) Anesthesia Level Check: T10- Umbilicus (Amy Jimenez RN) LaborFlag: Labor (QS system process) Datetime: 04/29/2016 11:51 Contraction Comments: MVU 275 (Amy Jimenez RN) Datetime: 04/29/2016 11:47 Patient Position/Activity: Tailors (Amy Jimenez, RN) Datetime: 04/29/2016 11:45 Monitor Mode: Internal; Palpation (Amy Jimenez RN) Frequency (min): 2-3 (Amy Jimenez RN) Quality: Moderate to Strong (Amy Jimenez RN) Duration (sec): 60-80 (Amy Jimenez RN) Resting Tone (Palpate): Relaxed (Aym Jimenez RN) Resting Tone IUP (mmHg): 30 (Amy Jimenez RN) Intensity IUP (mmHg): 95 (Amy Jimenez RN) Monitor Mode: External US (Amy Jimenez RN) FHR Baseline Rate : 145 (Amy Jimenez RN) Variability: Minimal - Undetectable to <=5 bpm (Amy Jimenez RN) Accelerations: 15X15 (Amy Jimenez RN) Decelerations: Early (Amy Jimenez RN) Dilatation (cm): 6.0 (Amy Jimenez RN) Effacement (%): 90 (Amy Jimenez RN) Station: 1 (Amy Jimenez RN) Exam by: Dr Rushing (Amy Jimenez RN) Vaginal Bleeding: Normal Show (Amy Jimenez RN) Cervix, Consistency: Moderate (Amy Jimenez RN) Cervix, Position: Anterior (Amy Jimenez RN) Pitocin (milliunit): Pitocin Remains (milliunits) @ 2 (Amy Jimenez RN) Datetime: 04/29/2016 11:44 Communication Comments: Dr Rushing at bedside (Amy Jimenez RN) Datetime: 04/29/2016 11:30 NBP Sys/Brissa/Mean (mmHg): 122 (QS system process) : 70 (QS system process) : 91 (QS system process) Pulse: 63 (QS system process) Respirations: 16 (Amy Jimenez RN) Monitor Mode: Internal; Palpation (Amy Jimenez RN) Frequency (min): 2-3 (Amy Jimenez RN) Quality: Moderate to Strong (Amy Jimenez RN) Duration (sec): 60-90 (Amy Jimenez RN) Resting Tone (Palpate): Relaxed (Amy Jimenez RN) Resting Tone IUP (mmHg): 30 (Amy Jimenez RN) Intensity IUP (mmHg): 100 (Amy Jimenez RN) Monitor Mode: External US (Amy Jimenez RN) FHR Baseline Rate : 140 (Amy Jimenez RN) Variability: Moderate 6-25 bpm (Amy Jimenez RN) Accelerations: 10X10 (Amy Jimenez RN) Decelerations: Early (Amy Jimenez RN) Pitocin (milliunit): Pitocin Remains (milliunits) @ 2 (Amy Jimenez RN) LaborFlag: Labor (QS system process) Datetime: 04/29/2016 11:20 Contraction Comments: MVU 280 (Amy Jimenez RN) Datetime: 04/29/2016 11:18 Patient Position/Activity: Left Lateral; Peanut Ball (Aym Jimenez RN) Datetime: 04/29/2016 11:16 NBP Sys/Brissa/Mean (mmHg): 122 (QS system process) : 67 (QS system process) : 86 (QS system process) Pulse: 88 (QS system process) Respirations: 16 (Amy Jimenez RN) LaborFlag: Labor (QS system process) Datetime: 04/29/2016 11:15 Monitor Mode: Internal; Palpation (Amy Jimenez RN) Frequency (min): 2-4 (Amy Jimenez RN) Quality: Moderate to Strong (Amy Jimenez RN) Duration (sec): 60-90 (Amy Jimenez RN) Resting Tone (Palpate): Relaxed (Amy Jimenez RN) Resting Tone IUP (mmHg): 30 (Amy Jimenez RN) Intensity IUP (mmHg): 100 (Amy Jimenez RN) Monitor Mode: External US (Amy Jimenez RN) FHR Baseline Rate : 145 (Amy Jimenez RN) Variability: Moderate 6-25 bpm (Amy Jimenez RN) Decelerations: Early; Variable (Amy Jimenez RN) Pitocin (milliunit): Pitocin Remains (milliunits) @ 2 (Amy Jimenez RN) IV/Blood Work: IV Infusing per Order; New IV Bag Hung; IV Bag Number @ 2 (Amy Jimenez RN) Datetime: 04/29/2016 11:00 NBP Sys/Brissa/Mean (mmHg): 121 (QS system process) : 65 (QS system process) : 88 (QS system process) Pulse: 68 (QS system process) Respirations: 18 (Amy Jimenez RN) Monitor Mode: Internal; Palpation (Amy Jimenez RN) Frequency (min): 2-3 (Amy Jimenez RN) Quality: Moderate to Strong (Amy Jimenez RN) Duration (sec): 60-80 (Amy Jimenez RN) Resting Tone (Palpate): Relaxed (Amy Jimenez RN) Resting Tone IUP (mmHg): 25 (Amy Jimenez RN) Intensity IUP (mmHg): 100 (Amy Jimenez RN) Contraction Comments: MVU 285 (Amy Jimenez RN) Monitor Mode: External US (Amy Jimenez RN) FHR Baseline Rate : 140 (Amy Jimenez RN) Variability: Moderate 6-25 bpm (Amy Jimenez RN) Decelerations: Early (Amy Jimenez RN) Pitocin (milliunit): Pitocin Remains (milliunits) @ 2 (Amy Jimenez RN) Anesthesia Level Check: T10- Umbilicus (Amy Jimenez RN) LaborFlag: Labor (QS system process) Datetime: 04/29/2016 10:47 NBP Sys/Brissa/Mean (mmHg): 115 (QS system process) : 65 (QS system process) : 84 (QS system process) Pulse: 76 (QS system process) Respirations: 18 (Amy Jimenez RN) LaborFlag: Labor (QS system process) Datetime: 04/29/2016 10:45 NBP Sys/Brissa/Mean (mmHg): 139 (QS system process) : 87 (QS system process) : 109 (QS system process) Pulse: 76 (QS system process) Respirations: 16 (Amy Jimenez RN) Monitor Mode: Internal; Palpation (Amy Jimenez RN) Frequency (min): 2-6 (Amy Jimenez RN) Quality: Moderate to Strong (Amy Jimenez RN) Duration (sec): 60-90 (Amy Jimenez RN) Resting Tone (Palpate): Relaxed (Amy Jimenez RN) Resting Tone IUP (mmHg): 25 (Amy Jimenez RN) Intensity IUP (mmHg): 100 (Amy Jimenez RN) Contraction Comments: Intensity 75-100 (Amy Jimenez RN) Monitor Mode: External US (Amy Jimenez RN) FHR Baseline Rate : 150 (Amy Jimenez RN) Variability: Moderate 6-25 bpm (Amy Jimenez RN) Decelerations: Early (Amy Jimenez RN) Pitocin (milliunit): Pitocin Remains (milliunits) @ 2 (Amy Jimenez RN) LaborFlag: Labor (QS system process) Datetime: 04/29/2016 10:40 Contraction Comments: MVU 235 (Amy Jimenez RN) Datetime: 04/29/2016 10:39 Patient Position/Activity: Right Lateral; Peanut Ball (Amy Jimenez RN) Datetime: 04/29/2016 10:31 NBP Sys/Brissa/Mean (mmHg): 127 (QS system process) : 73 (QS system process) : 94 (QS system process) Pulse: 72 (QS system process) Respirations: 18 (Amy Jimenez RN) LaborFlag: Labor (QS system process) Datetime: 04/29/2016 10:30 Monitor Mode: Internal; Palpation (Amy Jimenez RN) Frequency (min): 2-3 (Amy Jimenez RN) Quality: Moderate (Amy Jimenez RN) Duration (sec): 60-90 (Amy Jimenez RN) Resting Tone (Palpate): Relaxed (Amy Jimenez RN) Resting Tone IUP (mmHg): 25 (Amy Jimenez RN) Intensity IUP (mmHg): 100 (Amy Jimenez RN) Monitor Mode: External US (Amy Jimenez RN) FHR Baseline Rate : 150 (Amy Jimenez RN) Variability: Minimal - Undetectable to <=5 bpm (Amy Jimenez RN) Decelerations: Early (Amy Jimenez RN) Pitocin (milliunit): Pitocin Remains (milliunits) @ 2 (Amy Jimenez RN) Datetime: 04/29/2016 10:16 NBP Sys/Brissa/Mean (mmHg): 133 (QS system process) : 88 (QS system process) : 107 (QS system process) Pulse: 75 (QS system process) Respirations: 16 (Amy Jimenez RN) LaborFlag: Labor (QS system process) Datetime: 04/29/2016 10:15 Monitor Mode: Internal; Palpation (Amy Jimenez RN) Frequency (min): 2-5 (Amy Jimenez RN) Quality: Moderate (Amy Jimenez RN) Duration (sec): 60-90 (Amy Jimenez RN) Resting Tone (Palpate): Relaxed (Amy Jimenez RN) Resting Tone IUP (mmHg): 25 (Amy Jimenez RN) Intensity IUP (mmHg): 100 (Amy Jimenez RN) Monitor Mode: External US (Amy Jimenez RN) FHR Baseline Rate : 150 (Amy Tony, RN) Variability: Moderate 6-25 bpm (Amy Tony, RN) Decelerations: Early; Variable (Amy Tony, RN) Pitocin (milliunit): Pitocin Remains (milliunits) @ 2 (Amy Jimenez, RN) Datetime: 04/29/2016 10:14 Communication Comments: Dr Neilsen notified of MVU and decreased pitocin to 2millinunits/min (Amy Jimenez, RN) Datetime: 04/29/2016 10:12 Pitocin (milliunit): Pitocin Decreased to (milliunits) @ 2 (Amy Jimenez, RN) Datetime: 04/29/2016 10:11 Contraction Comments: MVU 315 (Amy Jimenez, RN) Datetime: 04/29/2016 10:01 NBP Sys/Brissa/Mean (mmHg): 119 (QS system process) : 67 (QS system process) : 88 (QS system process) Pulse: 70 (QS system process) Respirations: 14 (Amy Jimenez RN) Temperature (F): 98.6 (Amy Jimenez RN) Temperature (C): 37.0 (QS system process) Temperature Route: Oral (Amy Jimenez RN) LaborFlag: Labor (QS system process) Datetime: 04/29/2016 10:00 Monitor Mode: Internal; Palpation (Amy Jimenez RN) Frequency (min): 2-4 (Amy Jimenez RN) Quality: Moderate (Amy Jimenez RN) Duration (sec): 60-90 (Amy Jimenez RN) Resting Tone (Palpate): Relaxed (Amy Jimenez RN) Resting Tone IUP (mmHg): 25 (Amy Jimenez RN) Intensity IUP (mmHg): 100 (Amy Jimenez RN) Contraction Comments: MVU 290 (Amy Jimenez RN) Monitor Mode: External US (Amy Jimenez RN) FHR Baseline Rate : 150 (Amy Jimenez RN) Variability: Moderate 6-25 bpm (Amy Jimenez RN) Decelerations: Early; Variable (Amy Jimenez RN) Pitocin (milliunit): Pitocin Remains (milliunits) @ 4 (Amy Jimenez RN) Anesthesia Level Check: T10- Umbilicus (Amy Jimenez RN) Datetime: 04/29/2016 09:51 Patient Position/Activity: Left Lateral (Amy Jimenez RN) Datetime: 04/29/2016 09:50 Monitor Interventions for UA: IUPC Inserted (Amy Jimenez RN) Contraction Comments: by Dr Rushing (Amy Jimenez RN) Datetime: 04/29/2016 09:48 Dilatation (cm): 4.0 (Amy Jimenez RN) Effacement (%): 90 (Amy Jimenez RN) Station: 0 (Amy Jimenez RN) Exam by: Dr Rushing (Amy Jimenez RN) Membrane Status: Ruptured (Amy Jimenez RN) Membranes Ruptured Date/Time: 04/29/2016 09:48 (Amy Jimenez RN) Membranes Rupture Method: Artificial (Amy Jimenez RN) Amniotic Fluid Color: Clear (Amy Jimenez RN) Amniotic Fluid Amount: Scant (Amy Jimenez RN) Amniotic Fluid Odor: Normal (Amy Jimenez RN) Vaginal Bleeding: Normal Show (Amy Jimenez RN) Cervix, Consistency: Moderate (Amy Jimenez RN) Cervix, Position: Anterior (Amy Jimenez RN) Datetime: 04/29/2016 09:46 Notification Reason: Status Update; Status; Labor Status; Membrane Status; Uterine Activity (Amy Jimenez RN) Communication Comments: Dr Rushing at bedside (Amy Jimenez RN) Datetime: 04/29/2016 09:45 NBP Sys/Brissa/Mean (mmHg): 123 (QS system process) : 68 (QS system process) : 91 (QS system process) Pulse: 79 (QS system process) Respirations: 18 (Amy Jimenez RN) Monitor Mode: External; Palpation (Amy Jimenez RN) Frequency (min): 2-3 (Amy Jimneez RN) Quality: Mild/Moderate (Amy Jimenez RN) Duration (sec): 50-80 (Amy Jimenez RN) Resting Tone (Palpate): Relaxed (Amy Jimenez RN) Monitor Mode: External US (Amy Jimenez RN) FHR Baseline Rate : 150 (Amy Jimenez RN) Variability: Moderate 6-25 bpm (Amy Jimenez RN) Decelerations: Early; Variable (Amy Jimenez RN) Pitocin (milliunit): Pitocin Remains (milliunits) @ 4 (Amy Jimenez RN) LaborFlag: Labor (QS system process) Datetime: 04/29/2016 09:30 Monitor Mode: External; Palpation (Amy Jimenez, RN) Frequency (min): 2-5 (Amyjuliano Jimenez, RN) Quality: Mild/Moderate (Amy Tony, RN) Duration (sec): 50-80 (Amy Tony, RN) Resting Tone (Palpate): Relaxed (Amyjuliano Jimenez, RN) Monitor Mode: External US (Amy Jimenez, RN) FHR Baseline Rate : 150 (Amyjuliano Jimenez, RN) Variability: Moderate 6-25 bpm (Amy Tony, RN) Decelerations: Early; Variable (Amy Tony, RN) Pitocin (milliunit): Pitocin Increased to (milliunits) @ 4 (Amyjuliano Jimenez, RN) Datetime: 04/29/2016 09:16 NBP Sys/Brissa/Mean (mmHg): 114 (QS system process) : 59 (QS system process) : 80 (QS system process) Pulse: 83 (QS system process) Respirations: 18 (Amy Jimenez, RN) LaborFlag: Labor (QS system process) Datetime: 04/29/2016 09:15 Monitor Mode: External; Palpation (Amy Tony, RN) Frequency (min): 3-5 (Amy Tony, RN) Quality: Mild (Amy Tony, RN) Duration (sec): 50-80 (Amy Tony, RN) Resting Tone (Palpate): Relaxed (Amy Tony, RN) Monitor Mode: External US (Amyjuliano Jimenez, RN) FHR Baseline Rate : 150 (Amy Tony, RN) Variability: Moderate 6-25 bpm (Amy Tony, RN) Decelerations: Early (Amy Tony, RN) Pitocin (milliunit): Pitocin Remains (milliunits) @ 2 (Amy Tony, RN) Datetime: 04/29/2016 09:02 Patient Position/Activity: Right Lateral (Amy Tony, RN) Datetime: 04/29/2016 09:00 Monitor Mode: External; Palpation (Amy Tony, RN) Frequency (min): 4-6 (Amy Tony, RN) Quality: Mild/Moderate (Amy Tony, RN) Duration (sec): 60-80 (Amy Jimenez RN) Resting Tone (Palpate): Relaxed (Amy Jimenez RN) Monitor Mode: External US (Amy Jimenez RN) FHR Baseline Rate : 135 (Amy Jimenez RN) Variability: Moderate 6-25 bpm (Amy Jimenez RN) Decelerations: Early; Variable (Amy Jimenez RN) Pitocin (milliunit): Pitocin Remains (milliunits) @ 2 (Amy Jimenez RN) Anesthesia Level Check: T10- Umbilicus (Amy Jimenez RN) Datetime: 04/29/2016 08:55 Pitocin (milliunit): Pitocin Started (milliunits) @ 2 (Amy Jimenez RN) Datetime: 04/29/2016 08:46 NBP Sys/Brissa/Mean (mmHg): 128 (QS system process) : 63 (QS system process) : 89 (QS system process) Pulse: 77 (QS system process) Respirations: 14 (Amy Tony, RN) LaborFlag: Labor (QS system process) Datetime: 04/29/2016 08:45 Monitor Mode: External; Palpation (Amy Jimenez, RN) Frequency (min): 5-6 (Amy Tony, RN) Quality: Mild (Amy Tony, RN) Duration (sec): 60-90 (Amy Tony, RN) Resting Tone (Palpate): Relaxed (Amy Tony, RN) Monitor Mode: External US (Amy Tony, RN) FHR Baseline Rate : 135 (Amy Tony, RN) Variability: Moderate 6-25 bpm (Amy Tony, RN) Decelerations: Early (Amy Tony, RN) Datetime: 04/29/2016 08:31 NBP Sys/Brissa/Mean (mmHg): 117 (QS system process) : 57 (QS system process) : 81 (QS system process) Pulse: 75 (QS system process) Respirations: 16 (Amy Tony, RN) LaborFlag: Labor (QS system process) Datetime: 04/29/2016 08:30 Monitor Mode: External; Palpation (Amy Tony, RN) Frequency (min): 3-6 (Amy Tony, RN) Quality: Mild (Amy Tony, RN) Duration (sec): 50-80 (Amy Tony, RN) Resting Tone (Palpate): Relaxed (Amy Tony, RN) Monitor Mode: External US (Amy Tony, RN) FHR Baseline Rate : 135 (Amy Tony, RN) Variability: Moderate 6-25 bpm (Amy Tony, RN) Decelerations: Early (Amy Tony, RN) Datetime: 04/29/2016 08:16 NBP Sys/Brissa/Mean (mmHg): 114 (QS system process) : 59 (QS system process) : 80 (QS system process) Pulse: 78 (QS system process) Respirations: 16 (Amy Tony, RN) LaborFlag: Labor (QS system process) Datetime: 04/29/2016 08:15 Monitor Mode: External; Palpation (Amy Tony, RN) Frequency (min): 3-6 (Amy Tony, RN) Quality: Mild (Amy Tony, RN) Duration (sec): 50-80 (Amy Tony, RN) Resting Tone (Palpate): Relaxed (Amy Tony, RN) Monitor Mode: External US (Amy Tony, RN) FHR Baseline Rate : 140 (Amy Tony, RN) Variability: Moderate 6-25 bpm (Amy Tony, RN) Accelerations: 10X10 (Amy Tony, RN) Decelerations: Early (Amy Tony, RN) Datetime: 04/29/2016 08:00 Monitor Mode: External; Palpation (Amy Tony, RN) Frequency (min): 2-5 (Amy Tony, RN) Quality: Mild/Moderate (Amy Tony, RN) Duration (sec): 50-80 (Amy Tony, RN) Resting Tone (Palpate): Relaxed (Amy Tony, RN) Monitor Mode: External US (Amy Tony, RN) FHR Baseline Rate : 150 (Amy Tony, RN) Variability: Moderate 6-25 bpm (Amy Tony, RN) Decelerations: Early (Amy Tony, RN) Pain Scale: 1 (Amy Jimenez RN) Pain Presence: Intermittent (Amy Jimenez RN) Pain Type: Cramping (Amy Jimenez RN) Pain Location: Back (Amy Jimenez RN) Pain Goal: 2 (Amy Jimenez RN) Pain Relief Measures: Epidural Given; Comfort Measures (Amy Jimenez RN) Pain Coping: Sleeping (Amy Jimenez RN) Pain Assessment Comments: Patient comfortable w/ ctx (Amy Jimenez RN) Level of Consciousness: Fully Conscious (Amy Jimenez RN) DTR's/Clonus: DTRs 1+; No Clonus (Amy Jimenez RN) Headache: Denies (Amy Jimenez RN) Breath Sounds, Left: Clear and Equal (Amy Jimenez RN) Breath Sounds, Right: Clear and Equal (Amy Jimenez RN) Nausea/Vomiting: Denies (Amy Jimenez RN) RUQ Epigastric Pain: Denies (Amy Jimenez RN) Anesthesia Level Check: T10- Umbilicus (Amy Jimenez RN) LaborFlag: Labor (QS system process) Datetime: 04/29/2016 07:57 NBP Sys/Brissa/Mean (mmHg): 106 (QS system process) : 58 (QS system process) : 77 (QS system process) Pulse: 75 (QS system process) Respirations: 16 (Amy Jimenez RN) LaborFlag: Labor (QS system process) Datetime: 04/29/2016 07:56 Notification Reason: Status Update; Status; Labor Status; Membrane Status; Uterine Activity; Pain (Amy Jimenez RN) Communication Comments: Dr Rushing at bedside. EFM, VS, SVE reviewed. Will start pitocin IOL 1 hour after cervidil removed. (Amy Jimenez RN) Datetime: 04/29/2016 07:53 Patient Position/Activity: Left Lateral (Amy Jimenez RN) Hygiene: Uyen Care; Underpad Changed (Amy Jimenez RN) Datetime: 04/29/2016 07:48 Dilatation (cm): 3.0 (Amy Jimenez RN) Effacement (%): 70 (Amy Jimenez RN) Station: 0 (Amy Jimenez RN) Exam by: Bernadette Jimenez RNC (Amy Jimenez RN) Vaginal Bleeding: Normal Show (Amy Jimenez RN) Cervix, Consistency: Moderate (Amy Jimenez RN) Cervix, Position: Anterior (Amy Jimenez RN) Dilatation (cm): 3-4 cms (Amy Jimenez RN) Effacement: 60-70_ effaced (Amy Jimenez RN) Station: minus 1 to 0 (Amy Jimenez RN) Consistency: Medium (Amy Jimenez RN) Position: Anterior (Amy Jimenez RN) Total Mackey's Score: 9 (QS system process) : 9-14 = Usually no failure for induction (QS system process) Datetime: 04/29/2016 07:46 I/O Interventions: Laws Cath Inserted (Amy Jimenez RN) Patient Care Comments: 14fr laws cath inserted under sterile technique w/ clear yellow urine returned. Secured to right leg, set to gravity drainage. (Amy Jimenez RN) Datetime: 04/29/2016 07:45 Monitor Mode: External; Palpation (Amy Jimenez, RN) Frequency (min): 3-6 (Amy Jimenez, RN) Quality: Mild/Moderate (Amyjuliano Jimenez, RN) Duration (sec): 50-80 (Amyjuliano Jmienez, RN) Resting Tone (Palpate): Relaxed (Amy Jimenez, RN) Monitor Mode: External US (Amy Jimenez, RN) FHR Baseline Rate : 150 (Amy Jimenez, RN) Variability: Moderate 6-25 bpm (Amyjuliano Jimenez, RN) Decelerations: Early (Amy Tony, RN) Datetime: 04/29/2016 07:44 Medication Comments: Cervidil removed (Amy Jimenez, RN) Datetime: 04/29/2016 07:37 NBP Sys/Brissa/Mean (mmHg): 105 (QS system process) : 59 (QS system process) : 80 (QS system process) Pulse: 81 (QS system process) Temperature (F): 99.2 (Amy Jimenez RN) Temperature (C): 37.3 (QS system process) Temperature Route: Oral (Amy Jimenez RN) LaborFlag: Labor (QS system process) Datetime: 04/29/2016 07:32 NBP Sys/Brissa/Mean (mmHg): 106 (QS system process) : 55 (QS system process) : 74 (QS system process) Pulse: 81 (QS system process) LaborFlag: Labor (QS system process) Datetime: 04/29/2016 07:28 NBP Sys/Brissa/Mean (mmHg): 109 (QS system process) : 55 (QS system process) : 75 (QS system process) Pulse: 91 (QS system process) LaborFlag: Labor (QS system process) Datetime: 04/29/2016 07:22 NBP Sys/Brissa/Mean (mmHg): 110 (QS system process) : 55 (QS system process) : 76 (QS system process) Pulse: 83 (QS system process) LaborFlag: Labor (QS system process) Datetime: 04/29/2016 07:17 NBP Sys/Brissa/Mean (mmHg): 107 (QS system process) : 57 (QS system process) : 75 (QS system process) Pulse: 81 (QS system process) LaborFlag: Labor (QS system process) Datetime: 04/29/2016 07:15 Monitor Mode: External; Palpation (Amy Jimenez RN) Frequency (min): 2-6 (Amy Jimenez RN) Quality: Mild/Moderate (Amy Jimenez RN) Duration (sec): 40-60 (Amy Jimenez RN) Resting Tone (Palpate): Relaxed (Amy Jimenez RN) Monitor Mode: External US (Amy Jimenez RN) FHR Baseline Rate : 135 (Amy Jimenez, RN) Variability: Moderate 6-25 bpm (Amy Jimenez RN) Accelerations: 10X10 (Amy Jimenez RN) Decelerations: Early (Amy Jimenez, RN) Datetime: 04/29/2016 07:12 NBP Sys/Brissa/Mean (mmHg): 107 (QS system process) : 56 (QS system process) : 74 (QS system process) Pulse: 85 (QS system process) LaborFlag: Labor (QS system process) Datetime: 04/29/2016 07:10 Patient Care Comments: Report to oncoming shift, care relinquished to EDILMA Jimenez (Radha Morse RN) Datetime: 04/29/2016 07:06 NBP Sys/Brissa/Mean (mmHg): 113 (QS system process) : 57 (QS system process) : 80 (QS system process) Pulse: 83 (QS system process) LaborFlag: Labor (QS system process) Datetime: 04/29/2016 07:05 NBP Sys/Brissa/Mean (mmHg): 113 (QS system process) : 55 (QS system process) : 79 (QS system process) Pulse: 82 (QS system process) LaborFlag: Labor (QS system process) Datetime: 04/29/2016 07:04 NBP Sys/Brissa/Mean (mmHg): 114 (QS system process) : 56 (QS system process) : 79 (QS system process) Pulse: 80 (QS system process) LaborFlag: Labor (QS system process) Datetime: 04/29/2016 07:03 NBP Sys/Brissa/Mean (mmHg): 119 (QS system process) : 61 (QS system process) : 85 (QS system process) Pulse: 78 (QS system process) LaborFlag: Labor (QS system process) Datetime: 04/29/2016 07:02 NBP Sys/Brissa/Mean (mmHg): 115 (QS system process) : 57 (QS system process) : 81 (QS system process) Pulse: 84 (QS system process) LaborFlag: Labor (QS system process) Datetime: 04/29/2016 07:01 NBP Sys/Brissa/Mean (mmHg): 117 (QS system process) : 62 (QS system process) : 83 (QS system process) Pulse: 81 (QS system process) Monitor Mode: External; Palpation (Radha Morse RN) Frequency (min): 2-6 (Radha Morse RN) Quality: Mild/Moderate (Radha Morse RN) Duration (sec): 50-100 (Radha Morse RN) Resting Tone (Palpate): Relaxed (Radha Morse RN) Monitor Mode: External US (Radha Morse RN) FHR Baseline Rate : 130 (Radha Morse RN) Variability: Moderate 6-25 bpm (Radha Morse RN) Accelerations: 15X15 (Radha Morse RN) Decelerations: Early (Radha Morse RN) LaborFlag: Labor (QS system process)
[2016-04-29] MEDS: IBUPROFEN 800 MG TABLET PO SCH (21:26)
[2016-04-30] MEDS: ACETAMINOPHEN WITH CODEINE #3 TABLET PO PRN (02:57)
[2016-04-30] MEDS: IBUPROFEN 800 MG TABLET PO SCH ×3 (05:38→22:52)
--- NOTE | 2016-04-30 06:00 | L&D Current Admission ---
Current Admit Datetime Report Generated by CPN: 04/30/2016 06:00 ADMISSION INFORMATION Current Admit Date/Time: 04/27/2016 15:50 (04/27/2016 15:57:Sol Parkinson RN) Reason for Admission: Other (04/27/2016 15:57:Sol Parkinson RN) Other Reason for Admission: ELIA 2.7 (04/27/2016 15:57:Sol Parkinson RN) Chief Complaint: ELIA 2.7 (04/27/2016 15:58:Sol Parkinson RN) Medications During : Ferrous Sulfate (Iron); Vitamin (04/27/2016 15:57:Sol Parkinson RN) EGA per Dates: 40.1 (04/27/2016 15:57:QS system process) EGA per US: 40.0 (04/27/2016 15:57:QS system process) Method of Arrival: Wheelchair (04/27/2016 15:57:Sol Parkinson RN) Admitted From: Dr. Office (04/27/2016 15:57:Sol Parkinson RN) Reason for Induction: Postterm; Other (04/27/2016 15:57:Sol Parkinson RN) Reason for Induction- Other: ELIA 2.7 (04/27/2016 15:57:Sol Parkinson RN) Records Available: Yes (04/27/2016 15:57:Sol Parkinson RN) General Admission Information: Reviewed (04/27/2016 15:57:Sol Parkinson RN) General Admission Reviewed By: Jermain Parkinson RN (04/27/2016 15:57:Sol Parkinson RN) BELONGINGS/ADVANCED DIRECTIVES Valuables/Personal Effects: Purse/Wallet; Cell Phone; Eyeglasses (04/27/2016 15:57:Sol Parkinson RN) Other Belongings: See [facility] belongings form (04/27/2016 15:57:Sol Parkinson RN) Disposition of Belongings: Kept with Patient (04/27/2016 15:57:Sol Parkinson RN) Advance Direct for Healthcare: No, and Wants No Information (04/27/2016 15:57:Sol Parkinson RN) Durable Power of Food Beverage Manager: No (04/27/2016 15:57:Sol Parkinson RN) Living Will: No (04/27/2016 15:57:Sol Parkinson RN) Organ Donor: No (04/27/2016 15:57:Sol Parkinson RN) Pt Rights Information Given: Yes (04/27/2016 15:57:Sol Parkinson RN) Pt Understands Pt Rights: Yes (04/27/2016 15:57:Sol Parkinson RN) LEARNING ASSESSMENT Knowledge Level: Understands L_D Process; Understands Care Activities; Had Pre-Hospital Education; Understands Diagnosis (04/27/2016 15:57:Sol Parkinson RN) Barriers to Learning: Communication Barrier (04/27/2016 15:57:Sol Parkinson RN) Learning Readiness: Motivated (04/27/2016 15:57:Sol Parkinson RN) Learns Best By: 1 to 1 Instruction (04/27/2016 15:57:Sol Parkinson RN) Learning Needs: Labor and Delivery Process; Pain Management; Symptoms to Report; Treatment Plan; Medication; Diagnosis; Nutrition; Equipment; Care; Community Resources (04/27/2016 15:57:Sol Parkinson RN) Learning Assessment Comments: Primary language is Citizen Of [place] (04/27/2016 15:57:Sol Parkinson RN) DOMESTIC VIOLANCE SCREENING Dom Viol Threatened/Hurt: No (04/27/2016 15:57:Sol Prakinson RN) Hx of Abuse/Neglect past 2yrs: No (04/27/2016 15:57:Sol Parkinson RN) Feel Unsafe Going Home: No (04/27/2016 15:57:Sol Parkinson RN) Addt'l Observ Indicating Abuse: No (04/27/2016 15:57:Sol Parkinson RN) Reason Unable to Complete Screen: N/A, Screen Completed (04/27/2016 15:57:Sol Parkinson RN) Considered Personal Harm/Suicide: No (04/27/2016 15:57:Sol Parkinson RN) NUTRITIONAL/FUNCTIONAL SCREENING Problem with Appetite >5 Days: No (04/27/2016 15:57:Sol Parkinson RN) Chew/Swallow Difficulties: No (04/27/2016 15:57:Sol Parkinson RN) Inappropriate Wt Gain/Loss: No (04/27/2016 15:57:Sol Parkinson RN) Presence Skin Breakdown/Ulcer: No (04/27/2016 15:57:Sol Parkinson RN) Special Diet: No (04/27/2016 15:57:Sol Parkinson RN) Pt Requests Collection Supervisor Visit: No (04/27/2016 15:57:Sol Parkinson RN) Hx of Any of the Following?: N/A (04/27/2016 15:57:Sol Parkinson RN) New Diagnosis of: N/A (04/27/2016 15:57:Sol Parkinson RN) Requires Assist w/Ambulation: No (04/27/2016 15:57:Sol Parkinson RN) Uses Assist Device to Ambulate: No (04/27/2016 15:57:Sol Parkinson RN) Pt Requires Help w/ADL's: No (04/27/2016 15:57:Sol Parkinson RN)
--- NOTE | 2016-04-30 06:01 | L&D General Admission ---
General Admit Datetime Report Generated by CPN: 04/30/2016 06:00 INFORMATION Patient Age: 25 (02/28/2016 15:11:QS system process) EDC: 04/26/2016 00:00 (04/25/2016 20:19:Tahira Armstrong RN) EDC per Ultrasound: 04/27/2016 00:00 (04/25/2016 20:19:Amy Jimenez RN) LMP: 07/21/2015 00:00 (04/25/2016 20:19:Amy Jimenez RN) : 2 (04/25/2016 20:19:Tahira Armstrong RN) Para: 0 (04/25/2016 21:51:Madisyn Pelayo RN) Term: 0 (04/25/2016 20:19:Madisyn Pelayo RN) : 0 (04/25/2016 20:19:Madisyn Pelayo RN) Spontaneous Abortions: 0 (04/25/2016 20:19:Madisyn Pelayo RN) Induced Abortions: 1 (04/25/2016 20:19:Madisyn Pelayo RN) Livin (04/25/2016 20:19:Madisyn Pelayo RN) Cesareans: 0 (04/25/2016 20:19:Madisyn Pelayo RN) VBACs: 0 (04/25/2016 20:19:Madisyn Pelayo RN) Ectopic: 0 (04/25/2016 20:19:Madisyn Pelayo RN) Multiple Births: 0 (04/25/2016 20:19:Madisyn Pelayo RN) Baby, Number in Womb: 1 (04/25/2016 21:51:Madisyn Pelayo RN) CARE Primary Supervisor Plastics: [facility] (04/25/2016 20:19:Madisyn Pelayo RN) Month of 1st Visit: 01/25/2016 (04/25/2016 20:19:Amy Jimenez RN) Adequate Care: No (04/25/2016 20:19:Amy Jimenez RN) Prepregnancy Weight (lb): 114 (04/25/2016 20:19:Sol Parkinson RN) Prepregnancy Weight (kg): 51.8 (04/25/2016 20:19:QS system process) Height (in): 62 (04/29/2016 17:41:QS system process) ALLERGIES Medication Allergy: No (04/25/2016 20:19:Tahira Armstrong RN) Medication Allergies: No Known Allergies (04/27/2016) (04/27/2016 15:43:QS system process) Latex Allergy: No Latex Allergies (04/25/2016 20:19:Tahira Armstrong RN) Food Allergies: denies (04/25/2016 20:19:Sol Parkinson RN) Environmental Allergies: denies (04/25/2016 20:19:Sol Parkinson RN) COMMUNICATION Primary Language: Afghan (04/25/2016 20:19:Sol Parkinson RN) Medical Tx Preferred Language: Afghan (04/25/2016 20:19:Sol Parkinson RN) Nepalese Communication Ability: Understands verbal communication; Speaks Nepalese (04/25/2016 20:19:Sol Parkinson RN) Communication Barrier(s): Language barrier (04/25/2016 20:19:Sol Parkinson RN) DEMOGRAPHICS Address: [address] [place] [id number] (02/28/2016 15:11:QS system process) Zipcode: [address] (02/28/2016 15:11:QS system process) Home (02/28/2016 15:11:QS system process) SSN: [id number] (02/28/2016 15:11:QS system process) Next of Kin Name: ALESIA BRAVO (02/28/2016 15:11:QS system process) Next of Kin (02/28/2016 15:11:QS system process) Next of Kin Relationship: MO (02/28/2016 15:11:QS system process) Date of : 1990 (02/28/2016 15:11:QS system process) Marital Status: (02/28/2016 15:11:QS system process) Sex: Female (02/28/2016 15:11:QS system process) Race: Other (02/28/2016 15:11:QS system process) Ethnicity: Non- or (02/28/2016 15:11:QS system process) Baptism: Other (02/28/2016 15:11:QS system process) DRUG AND ALCOHOL USE Alcohol: No (04/25/2016 20:19:Madisyn Pelayo RN) Cigarettes: Former Smoker. [id number] (04/25/2016 20:19:Madisyn Pelayo RN) Cigarette Comments: before she got (04/25/2016 20:19:Madisyn Pelayo RN) Marijuana: No (04/25/2016 20:19:Madisyn Pelayo RN) Cocaine: No (04/25/2016 20:19:Madisyn Pelayo RN) Other Illicit Drugs: No (04/25/2016 20:19:Madisyn Pelayo RN) VACCINE HISTORY Influenza Vaccine: No (04/25/2016 20:19:Madisyn Pelayo RN) Pneumococcal Vaccine: No (04/25/2016 20:19:Madisyn Pelayo RN) Tetanus Vaccine: Uncertain (04/25/2016 20:19:Madisyn Pelayo RN) Tdap Vaccine: Uncertain (04/25/2016 20:19:Madisyn Pelayo RN) Hepatitis B Vaccine: Uncertain (04/25/2016 20:19:Madisyn Pelayo RN) 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 (04/25/2016 20:19:Radha Morse RN) Feeding Preference: Breast (04/25/2016 20:19:Madisyn Pelayo RN) Benefit of Breast Feed Discussed: Yes (04/25/2016 20:19:Madisyn Pelayo RN) Circumcision: Yes (04/25/2016 20:19:Madisyn Pelayo RN) Classes Attended: No (04/25/2016 20:19:Madisyn Pelayo RN) Tubal Ligation: No (04/25/2016 20:19:Madisyn Pelayo RN) Tubal Authorization Signed: N/A (04/25/2016 20:19:Madisyn Pelayo RN) Consent: N/A (04/25/2016 20:19:Madisyn Pelayo RN) Consent Signed: N/A (04/25/2016 20:19:Madisyn Pelayo RN) Pain Management Plans: Epidural (04/25/2016 20:19:Madisyn Pelayo RN) Plans for Labor and Delivery: None (04/25/2016 20:19:Radha Morse RN) Support Person: Kialicia Bravo (04/25/2016 20:19:Madisyn Pelayo RN) Support Person Relationship: (04/25/2016 20:19:Mdaisyn Pelayo RN) Cultural/Spritual Practice: No (04/25/2016 20:19:Madisyn Pelayo RN) Spir/Cult Dietary Needs: No (04/25/2016 20:19:Madisyn Pelayo RN) LIVING SITUATION/DISCHARGE PLAN Living Arrangements: House (04/25/2016 20:19:Madisyn Pelayo RN) Adequate Access to:: Electric; Heat; Refrigeration; Plumbing/Running water; Phone (04/25/2016 20:19:Madisyn Pelayo RN) WIC Program: Needs referral (04/25/2016 20:19:Madisyn Pelayo RN) Discharge Medical Radiation Tech Person: Ki Bravo (04/25/2016 20:19:Madisyn Pelayo RN) Person to Help after Discharge: Ki Bravo (04/25/2016 20:19:Madisyn Pelayo RN) Currently Using Commun Resources: No (04/25/2016 20:19:Amy Jimenez RN) Outside Agency/Dough Brake Machine Operator: No (04/25/2016 20:19:Amy Jimenez RN) Car Seat for Discharge: Yes (04/25/2016 20:19:Madisyn Pelayo RN) Adoption Requested: No (04/25/2016 20:19:Madisyn Pelayo RN) Pt Contact w/ Post : N/A (04/25/2016 20:19:Madisyn Pelayo RN) LABS Blood Type: B Positive (04/25/2016 20:19:Tahira Armstrong RN) Antibody Screen: negative (04/25/2016 20:19:Tahira Armstrong RN) Hemoglobin: 11.2 L (04/27/2016 17:25:QS system process) Hematocrit: 35.8 L (04/27/2016 17:25:QS system process) MCV: 80 (04/27/2016 17:25:QS system process) Group Beta Strep: negative (04/25/2016 20:19:Tahira Armstrong RN) Gonorrhea: Negative (04/25/2016 20:19:Tahira Armstrong RN) Chlamydia: Negative (04/25/2016 20:19:Tahira Armstrong RN) RPR/VDRL: Nonreactive (04/25/2016 20:19:Tahira Armstrong RN) HIV Results: negative (04/25/2016 20:19:Radha Morse RN) Hepatitis B: Negative (04/25/2016 20:19:Tahira Armstrong RN) Rubella: Non-Immune (04/25/2016 20:19:Tahira Armstrong RN) OB/PREVIOUS HISTORY LMP: 07/21/2015 00:00 (04/25/2016 20:19:Amy Jimenez RN) Previous Procedures: None (04/25/2016 20:19:Amy Jimenez RN) Current Procedures: Ultrasound; NST (04/25/2016 20:19:Sol Parkinson RN) History of Previous : No (04/25/2016 20:19:Sol Parkinson RN) History of Gestational Diabetes: No (04/25/2016 20:19:Sol Parkinson RN) History of PIH: No (04/25/2016 20:19:Sol Parkinson RN) History of Incompetent Cervix: No (04/25/2016 20:19:Sol Pariknson RN) History of Placenta Previa/Abrup: No (04/25/2016 20:19:Sol Iggy, RN) History of Macrosomia: No (04/25/2016 20:19:Sol Parkinson RN) History of IUGR: No (04/25/2016 20:19:Sol Parkinson RN) History of Hemorrhage: No (04/25/2016 20:19:Sol Parkinson RN) History of Loss/Stillborn: No (04/25/2016 20:19:Sol Parkinson RN) History of : No (04/25/2016 20:19:Sol Parkinson RN) History of D (Rh) Sensitization: No (04/25/2016 20:19:Sol Parkinson RN) History Recurrent Loss/Stillborn: No (04/25/2016 20:19:Sol Parkinson RN) History Depression/PP Depression: No (04/25/2016 20:19:Sol Parkinson RN) History of Uterine Anomaly/DOROTEO: No (04/25/2016 20:19:Sol Parkinson RN) History of Infertility: No (04/25/2016 20:19:Sol Parkinson RN) History of ART Treatment: No (04/25/2016 20:19:Sol Parkinson RN) History of DOROTEO: No (04/25/2016 20:19:Sol Parkinson RN) Comments Obstetrical History: G1: EAB _2009 G2: current , growth lag?, oligo 04/27 (04/25/2016 20:19:Madisyn Pelayo RN) MEDICAL HISTORY Med Hx Diabetes: No (04/25/2016 20:19:Sol Parkinson RN) Med Hx Hypertension: No (04/25/2016 20:19:Sol Parkinson RN) Med Hx Heart Disease: No (04/25/2016 20:19:Sol Parkinson RN) Med Hx Autoimmune Disorder: No (04/25/2016 20:19:Sol Parkinson RN) Med Hx Kidney Disease/UTI: No (04/25/2016 20:19:Sol Parkinson RN) Med Hx Neurologic/Epilepsy: No (04/25/2016 20:19:Sol Parkinson RN) Med Hx Psychiatric Disorders: No (04/25/2016 20:19:Sol Parkinson RN) Med Hx Hepatitis/Liver Disease: No (04/25/2016 20:19:Sol Parkinson RN) Med Hx Varicosities/Phlebitis: No (04/25/2016 20:19:Sol Parkinson RN) Med Hx Thyroid Dysfunction: No (04/25/2016 20:19:Sol Parkinson RN) Med Hx Trauma/Violence: No (04/25/2016 20:19:Sol Parkinson RN) Med Hx Blood Transfusion: No (04/25/2016 20:19:Sol Parkinson RN) Med Hx Pulmonary (Asthma,TB): No (04/25/2016 20:19:Sol Parkinson RN) Med Hx Breast: No (04/25/2016 20:19:Sol Parkinson RN) Med Hx CERTIFIED TUMOR REGISTRAR Surgery: No (04/25/2016 20:19:Sol Parkinson RN) Med Hx Hospitalization/Surgery: No (04/25/2016 20:19:Sol Parkinson RN) Med Hx Anesthetic Complications: No (04/25/2016 20:19:Sol Parkinson RN) Med Hx Abnormal Pap Smear: No (04/25/2016 20:19:Sol Parkinson RN) Other Medical Diseases: No (04/25/2016 20:19:Sol Parkinson RN) Med Hx Significant Family Hx: No (04/25/2016 20:19:Sol Parkinson RN) INFECTIOUS HISTORY Inf Hx Gonorrhea: No (04/25/2016 20:19:Sol Parkinson RN) Inf Hx Chlamydia: No (04/25/2016 20:19:Sol Parkinson RN) Inf Hx Syphilis: No (04/25/2016 20:19:Sol Parkinson RN) Inf Hx HIV/AIDS: No (04/25/2016 20:19:Sol Parkinson RN) Inf Hx Human Papilloma Virus: No (04/25/2016 20:19:Sol Parkinson RN) Inf Hx Pt/Partner Genital Herpes: No (04/25/2016 20:19:Sol Parkinson RN) Inf Hx Tuberculosis/Exposure: No (04/25/2016 20:19:Sol Parkinson RN) Inf Hx Hepatitis B,C: No (04/25/2016 20:19:Sol Parkisnon RN) Inf Hx Rash or Viral Illness: No (04/25/2016 20:19:Sol Parkinson RN) GENETIC HISTORY Gen Hx Age >=35 at DEJAN: No (04/25/2016 20:19:Sol Parkinson RN) Gen Hx Thalassemia: No (04/25/2016 20:19:Sol Parkinson RN) Gen Hx Congenital Heart Defect: No (04/25/2016 20:19:Sol Parkinson RN) Gen Hx Neural Tube Defect: No (04/25/2016 20:19:Sol Parkinson RN) Gen Hx Down's Syndrome: No (04/25/2016 20:19:Sol Parkinson RN) Gen Hx Maury-Sachs: No (04/25/2016 20:19:Sol Parkinson RN) Gen Hx Johnson: No (04/25/2016 20:19:Sol Parkinson RN) Gen Hx Familial Dysautonomia: No (04/25/2016 20:19:Sol Parkinson RN) Gen Hx Sickle Cell Disease/Trait: No (04/25/2016 20:19:Sol Parkinson RN) Gen Hx Hemophilia/Blood Disorder: No (04/25/2016 20:19:Sol Parkinson RN) Gen Hx Muscular Dystrophy: No (04/25/2016 20:19:Sol Parkinson RN) Gen Hx Cystic Fibrosis: No (04/25/2016 20:19:Sol Parkinson RN) Gen Hx Huntingtons Chorea: No (04/25/2016 20:19:Sol Parkinson RN) Gen Hx Mental Retardation/Autism: No (04/25/2016 20:19:Sol Parkinson RN) Gen Hx Tested for Fragile X: No (04/25/2016 20:19:Sol Parkinson RN) Gen Hx Other Inher/Chromosomal: No (04/25/2016 20:19:Sol Parkinson RN) Gen Hx Maternal Metabolic DO: No (04/25/2016 20:19:Sol Parkinson RN) Gen Hx Pt Father or FOB Defect: No (04/25/2016 20:19:Sol Parkinson RN) Gen Hx Other Genetic History: No (04/25/2016 20:19:Sol Parkinson RN) Gen Hx Drugs/Meds since LMP: Yes (04/25/2016 20:19:Madisyn Pelayo RN) Gen Hx Medications: pnv, iron (04/25/2016 20:19:Madisyn Pelayo RN)
--- NOTE | 2016-04-30 06:15 | L&D Care Plan ---
LD CARE PLANS Datetime Report Generated by CPN: 04/30/2016 06:15 Datetime: 04/29/2016 08:00 Pain State: Actual (Amy Jimenez RN) Related To: Labor and Delivery Process; Treatment and Procedures (Amy Jimenez RN) Goal(s): Patients Pain will be Assessed and Managed (Amy Jimenez RN) Interventions: Assess Pain Severity on Scale of 0 (None) to 5 (Severe); Assess Type, Location and Intensity of Pain Each Time Client Reports Discomfort and Notify Provider if Unusal Pain Develops; Encourage Proper Breathing and Relaxation Techniques; Offer Alternatives Such as Repositioning, Calm Environment, Massages, Diversional Activities, Ice Pack, Splinting, and Ambulation; Administer Analgesics as Ordered; Assist with Epidural Placement as Appropriate; Evaluate Therapeutic Effectiveness of Medication and Treatments (Amy Jimenez RN) Outcome: Patient will Report Absence or Relief of Pain Consistent with Established Pain Goal (Amy Jimenez RN) Status: Ongoing (Amy Jimenez RN) Outcome: Patient will have a Decrease in Signs and Symptoms of Discomfort (Amy Jimenez RN) Status: Ongoing (Amy Jimenez RN) Outcome: Pain will be Controlled During Procedures (Amy Jimenez RN) Status: Ongoing (Amy Jimenez RN) Anxiety State: Risk For (Amy Jimenez RN) Related To: Labor and Delivery Process; Medical Interventions (Amy Jimenez RN) Goal(s): Patient will have Decreased Anxiety and be able to Function at Acceptable Levels (Amy Jimenez RN) Interventions: Assess Verbal and Nonverbal Behavioral Indicators of Anxiety; Assist Patient to Identify and Verbalize Symptoms of Anxiety; Identify and Demonstrate Techniques to Control Anxiety; Assist Patient with Coping Mechanisms to Manage Anxiety; Provide Theraputic Touch for the Patient; Explain to Patient, Using a Calm Reassuring Approach and Nonmedical Terms, All Activities, Procedures, and Concerns; Instruct Patient and Family about Post Discharge Care, Limitations, Symptoms to Report and Resources Available (Amy Jimenez RN) Outcome: Patient will Identify, Verbalize and Demonstrate Techniques to Control Anxiety (Amy Jimenez RN) Status: Ongoing (Amy Jimenez RN) Outcome: Patient's Posture, Facial Expressions, Gestures and Activity Level will Reflect Decreased Anxiety (Amy Jimenez RN) Status: Ongoing (Amy Jimenez RN) Outcome: Patient will Verbalize a Sense of Control and/or Acceptance of the Situation (Amy Jimenez RN) Status: Ongoing (Amy Jimenez RN) Outcome: Patient will Identify and Utilize Support Person (Amy Jimenez RN) Status: Ongoing (Amy Jimenez RN) Knowledge Deficit State: Actual (Amy Jimenez RN) Related To: Labor and Delivery Process; Treatment and Procedures (Amy Jimenez RN) Goal(s): Patient will Accurately Verbalize Understanding of Plan of Care and Treatment (Amy Jimenez RN) Interventions: Assess Motivation and Willingness of Patient/Family to Learn; Assess Preferred Learning Mode: One to One Instruction, Reading, Videos, Group Discussion or Demonstration; Assess Barriers to Learning: Pain, Emotional State, Language Barrier, Cognitive Impairment, Visual or Hearing Deficits; Assess Patient and Family Knowledge of Disease Process, Medications and Treatment; Discuss Therapy and/or Treatment Options, Describe Rationale Behind Management, Therapy and Treatment Recommendations; Instruct Patient and Family on Signs and Symptoms to Report; Instruct Patient and Family on Medication Effects and Side Effects; Provide Appropriate and Timely Education Using Multiple Techniques; Provide Patient and Family with Support Group Information and Resources; Give Clear and Thorough Explanations and Demonstrations (Amy Jimenez RN) Outcome: Patient and Family will Verbalize Understanding of Condition, Treatment and Signs and Symptoms to Report (Amy Jimenez RN) Status: Ongoing (Amy Jimenez RN) Outcome: Patient will Identify Perceived Learning Needs and Express Motivation to Learn (Amy Jimenez RN) Status: Ongoing (Amy Jimenez RN) Outcome: Patient will Verbalize Understanding of Desired Content, and/or Performs Desired Skill Prior to Discharge (Amy Jimenez RN) Status: Ongoing (Amy Jimenez RN) Infection State: Risk For (Amy Jimenez RN) Related To: Prolonged Labor or Induction (Amy Jimenez RN) Goal(s): The Patient will be Free of Infection, Vital Signs Stable and Lab Work within Normal Parameters (Amy Jimenez RN) Interventions: Instruct and Reinforce Proper Handwashing, Hygiene, and Care Techniques to Patient and Family; Monitor Vital Signs; Monitor Patient for the Following Signs of Infection: Fever, Abdominal Tenderness, Unusual Discharge; Monitor Aminiotic Fluid, Urine and Lochia for Color and Odor; Observe Wounds, Incisions and Invasive Line Sites for Redness, Drainage and Edema; Assess IV Sites per Hospital Policy; Monitor Lab and Test Results and Notify Provider of Abnormal Findings; Assess Nutritional Status and Promote Good Nutrition (Amy Jimenez RN) Outcome: Patient will Remain Free of Infection (Amy Jimenez RN) Status: Ongoing (Amy Jimenez RN) Outcome: Infection will be Recognized Early to Allow for Prompt Treatment (Amy Jimenez RN) Status: Ongoing (Amy Jimenez RN) Outcome: Patient will have Vital Signs Within Expected Range (Amy Jimenez RN) Status: Ongoing (Amy Jimenez RN) Fluid Volume State: Not Applicable (Amy Jimenez RN) Related To: Prolonged Labor or Induction; Anesthesia (Amy Jimenez RN) Goal(s): Patient will Achieve and Maintain a Balanced Fluid Volume Status; Hemodynamically Stable (Amy Jimenez RN) Interventions: Monitor Vital Signs; Auscultate Breath Sounds; Monitor Patient for Skin Turgor, Mucous Membranes, Dry Skin, Weakness, Headaches and Confusion; Provide Oral Fluids as Ordered; Initiate and Maintain Intravenous Fluids as Ordered; Monitor Intake and Output as Indicated Per Patient Status; Accurately Measure Blood Loss; Monitor Lab and Test Results as Obtained and Notify Provider of Abnormal Findings; Monitor Patient's Weight (Amy Jimenez RN) Outcome: Patient will have Clear Lung Sounds (Amy Jimenez RN) Status: Ongoing (Amy Jimenez RN) Outcome: Patient will have Vital Signs within Expected Range (Amy Jimenez RN) Status: Ongoing (Amy Jimenez RN) Outcome: Urine Output will be within Expected Range (Amy Jimenez RN) Status: Ongoing (Amy Jimenez RN) Outcome: Patient will have Minimal Generalized or Upper Extremity Edema (Amy Jimenez RN) Status: Ongoing (Amy Jimenez RN) Injury State: Risk For (Amy Jimenez RN) Related To: Labor and Delivery Process; Anesthesia; Risk to Status; Uteroplacental Perfusion; Hemorrhage, Placenta Previa and or Placental Abruption (Amy Jimenez RN) Goal(s): Patient will Remain Free from Injury (Amy Jimenez RN) Interventions: Monitoring as per Hospital Protocol; Assess Neurological Status; Perform Risk Assessment of Patients with Induction and ; Perform Fall Risk Assessment and Prevention per Hospital Protocol; Perform DVT Risk Assessment and Prophylaxis per Hospital Protocol; Ensure that Oxygen, Suction, and Resuscitation Medications and Equipment are Readily Available; Confirm Patient ID Prior to Procedure(s) and Medication Administration per Hospital Policy (Amy Jimenez RN) Outcome: Successful Fall Risk Prevention (Amy Jimenez RN) Status: Ongoing (Amy Jimenez RN) Outcome: Patient will Deliver Infant without Adverse Sequela (Amy Jimenez RN) Status: Ongoing (Amy Jimenez RN) Outcome: Patient's Neurological Status will Remain Stable (Amy Jimenez RN) Status: Ongoing (Amy Jimenez RN) Impaired Skin Integrity State: Risk For (Amy Jimenez RN) Related To: Vaginal Delivery; Invasive Procedures (Amy Jimenez, EDILMA) Goal(s): Patient will Maintain Optimal Skin Integrity, Free of Breakdown, Injury or Infection (Amy Jimenez, EDILMA) Interventions: Complete Screening for Pressure Ulcer Risk and Initiate Protocol per Hospital Policy; Monitor Site of Skin Impairment for Color Changes, Redness, Swelling, Warmth, Pain or Other Signs of Infection; Encourage and Assist with Position Changes; Monitor Patient's Mobility Status; Provide Adequate Nutrition and Fluids; Teach Patient Appropriate Hygienic Care; Teach Patient/Family Skin Care Management (Amy Jimenez, EDILMA) Outcome: Patient will not have Evidence of Injury Such as Skin Breakdown, Scrapes, Cuts, or Bruising (Amy Jimenez RN) Status: Ongoing (Amy Jimenez, RN) Outcome: Patient will Report Any Altered Sensation or Pain at Site of Skin Impairment (Amy Jimenez RN) Status: Ongoing (Amy Jimenez RN) Outcome: Patients Incisions and Wounds will be without Signs or Symptoms of Infection (Amy Jimenez RN) Status: Ongoing (Amy Jimenez RN) Outcome: Patient will Demonstrate Understanding of Plan to Heal Skin and Prevent Reinjury and Verbalize Risk Factors (Amy Jimenez RN) Status: Ongoing (Amy Jimenez RN) Parenting Impaired State: Not Applicable (Amy Jimenez RN) Goal(s): Parents will Demonstrate Progressive Parenting Behaviors (Amy Jimenez RN) Nutrition State: Risk For (Amy Jimenez RN) Related To: ; (Amy Jimenez RN) Goal(s): Patient will have an Intake of Nutrients Sufficient to Meet Metabolic Needs (Amy Jimenez RN) Interventions: Nutritional Screening and Assessment per Hospital Policy; Consult Wrapper Dipper for Further Assessment and Recommendations Regarding Food Preferences and Nutritional Support; Allow Patient to Plan and Order Diet when Possible; Monitor Laboratory Values That Indicate Nutritional Well-being; Consult Restaurant Recruiter for Nutritional Support Regarding Requirements; Document Actual Weight Initially and Weekly (Do Not Estimate); Encourage Patient Participation in Maintaining a Food Log as Indicated; Educate Patient on the Importance of Maintaining an Adequate Caloric Intake (Amy Jimenez RN) Outcome: Patient will Receive Adequate Calories and Fluid Volume to Meet Metabolic Needs (Amy Jimenez RN) Status: Ongoing (Amy Jimenez RN) Outcome: Patient will Select Foods or Meals that Support Adequate Nutrition (Amy Jimenez RN) Status: Ongoing (Amy Jimenez RN) Grieving State: Not Applicable (Amy Jimenez, RN) Additional Care Plan State: Not Applicable (Amy Jimenez, RN) Datetime: 04/27/2016 15:49 Pain State: Risk For (Halley Garcia RN) Related To: Labor and Delivery Process (Halley Garcia RN) Goal(s): Patients Pain will be Assessed and Managed (Halley Garcia RN) Interventions: Assess Pain Severity on Scale of 0 (None) to 5 (Severe); Assess Type, Location and Intensity of Pain Each Time Client Reports Discomfort and Notify Provider if Unusal Pain Develops; Encourage Proper Breathing and Relaxation Techniques; Offer Alternatives Such as Repositioning, Calm Environment, Massages, Diversional Activities, Ice Pack, Splinting, and Ambulation; Administer Analgesics as Ordered; Assist with Epidural Placement as Appropriate; Evaluate Therapeutic Effectiveness of Medication and Treatments (aHlley Garcia RN) Outcome: Patient will Report Absence or Relief of Pain Consistent with Established Pain Goal (Halley Garcia RN) Status: Ongoing (Halley Garcia RN) Outcome: Patient will have a Decrease in Signs and Symptoms of Discomfort (Radha Morse RN) Status: Ongoing (Radha Morse RN) Outcome: Pain will be Controlled During Procedures (Radha Morse RN) Status: Ongoing (Radha Morse RN) Anxiety State: Risk For (Halley Garcia RN) Related To: Labor and Delivery Process (Halley Garcia RN) Goal(s): Patient will have Decreased Anxiety and be able to Function at Acceptable Levels (Halley Garcia RN) Interventions: Assess Verbal and Nonverbal Behavioral Indicators of Anxiety; Assist Patient to Identify and Verbalize Symptoms of Anxiety; Identify and Demonstrate Techniques to Control Anxiety; Assist Patient with Coping Mechanisms to Manage Anxiety; Provide Theraputic Touch for the Patient; Explain to Patient, Using a Calm Reassuring Approach and Nonmedical Terms, All Activities, Procedures, and Concerns; Instruct Patient and Family about Post Discharge Care, Limitations, Symptoms to Report and Resources Available (Halley Garcia RN) Outcome: Patient will Identify, Verbalize and Demonstrate Techniques to Control Anxiety (Halley Garcia RN) Status: Ongoing (Halley Garcia RN) Outcome: Patient's Posture, Facial Expressions, Gestures and Activity Level will Reflect Decreased Anxiety (Radha Morse RN) Status: Ongoing (Radha Morse RN) Outcome: Patient will Verbalize a Sense of Control and/or Acceptance of the Situation (Radha Morse RN) Status: Ongoing (Radha Morse RN) Outcome: Patient will Identify and Utilize Support Person (Radha Morse RN) Status: Ongoing (Radha Morse RN) Knowledge Deficit State: Risk For (Halley Garcia RN) Related To: Labor and Delivery Process (Halley Garcia RN) Goal(s): Patient will Accurately Verbalize Understanding of Plan of Care and Treatment (Halley Garcia RN) Interventions: Assess Motivation and Willingness of Patient/Family to Learn; Assess Preferred Learning Mode: One to One Instruction, Reading, Videos, Group Discussion or Demonstration; Assess Barriers to Learning: Pain, Emotional State, Language Barrier, Cognitive Impairment, Visual or Hearing Deficits; Assess Patient and Family Knowledge of Disease Process, Medications and Treatment; Discuss Therapy and/or Treatment Options, Describe Rationale Behind Management, Therapy and Treatment Recommendations; Instruct Patient and Family on Signs and Symptoms to Report; Instruct Patient and Family on Medication Effects and Side Effects; Provide Appropriate and Timely Education Using Multiple Techniques; Provide Patient and Family with Support Group Information and Resources; Give Clear and Thorough Explanations and Demonstrations (Halley Garcia RN) Outcome: Patient and Family will Verbalize Understanding of Condition, Treatment and Signs and Symptoms to Report (Halley Garcia RN) Status: Ongoing (Halley Garcia RN) Outcome: Patient will Identify Perceived Learning Needs and Express Motivation to Learn (Radha Morse RN) Status: Ongoing (Radha Morse RN) Outcome: Patient will Verbalize Understanding of Desired Content, and/or Performs Desired Skill Prior to Discharge (Radha Morse RN) Status: Ongoing (Radha Morse RN) Infection State: Risk For (Halley Garcia RN) Related To: Prolonged Labor or Induction (Halley Garcia RN) Goal(s): The Patient will be Free of Infection, Vital Signs Stable and Lab Work within Normal Parameters (Halley Garcia RN) Interventions: Instruct and Reinforce Proper Handwashing, Hygiene, and Care Techniques to Patient and Family; Monitor Vital Signs; Monitor Patient for the Following Signs of Infection: Fever, Abdominal Tenderness, Unusual Discharge; Monitor Aminiotic Fluid, Urine and Lochia for Color and Odor; Observe Wounds, Incisions and Invasive Line Sites for Redness, Drainage and Edema; Assess IV Sites per Hospital Policy; Monitor Lab and Test Results and Notify Provider of Abnormal Findings; Assess Nutritional Status and Promote Good Nutrition (Halley Garcia RN) Outcome: Patient will Remain Free of Infection (Halley Garcia RN) Status: Ongoing (Halley Garcia RN) Outcome: Infection will be Recognized Early to Allow for Prompt Treatment (Radha Morse RN) Status: Ongoing (Radha Morse RN) Outcome: Patient will have Vital Signs Within Expected Range (Radha Morse RN) Status: Ongoing (Radha Morse RN) Fluid Volume State: Not Applicable (Halley Garcia RN) Related To: Surgical Procedures; Prolonged Labor or Induction; Hemorrhage; Anesthesia (Radha Morse RN) Goal(s): Patient will Achieve and Maintain a Balanced Fluid Volume Status; Hemodynamically Stable (Radha Morse RN) Interventions: Monitor Vital Signs; Auscultate Breath Sounds; Monitor Patient for Skin Turgor, Mucous Membranes, Dry Skin, Weakness, Headaches and Confusion; Provide Oral Fluids as Ordered; Initiate and Maintain Intravenous Fluids as Ordered; Monitor Intake and Output as Indicated Per Patient Status; Accurately Measure Blood Loss; Monitor Lab and Test Results as Obtained and Notify Provider of Abnormal Findings; Monitor Patient's Weight (Radha Morse RN) Outcome: Patient will have Clear Lung Sounds (Radha Morse RN) Status: Ongoing (Radha Morse RN) Outcome: Patient will have Vital Signs within Expected Range (Radha Morse RN) Status: Ongoing (Radha Morse RN) Outcome: Urine Output will be within Expected Range (Radha Morse RN) Status: Ongoing (Radha Morse RN) Outcome: Patient will have Minimal Generalized or Upper Extremity Edema (Radha Morse RN) Status: Ongoing (Radha Morse RN) Injury State: Risk For (Halley Garcia RN) Related To: Labor and Delivery Process; Anesthesia; Risk to Status; Uteroplacental Perfusion; Hemorrhage, Placenta Previa and or Placental Abruption (Radha Morse RN) Goal(s): Patient will Remain Free from Injury (Halley Garcia RN) Interventions: Monitoring as per Hospital Protocol; Assess Neurological Status; Perform Risk Assessment of Patients with Induction and ; Perform Fall Risk Assessment and Prevention per Hospital Protocol; Perform DVT Risk Assessment and Prophylaxis per Hospital Protocol; Ensure that Oxygen, Suction, and Resuscitation Medications and Equipment are Readily Available; Confirm Patient ID Prior to Procedure(s) and Medication Administration per Hospital Policy (Halley Garcia RN) Outcome: Successful Fall Risk Prevention (Halley Garcia RN) Status: Ongoing (Halley Garcia RN) Outcome: Patient will Deliver without Adverse Sequela (Radha Morse RN) Status: Ongoing (Radha Morse RN) Outcome: Patient's Neurological Status will Remain Stable (Radha Morse RN) Status: Ongoing (Radha Morse RN) Impaired Skin Integrity State: Risk For (Halley Garcia RN) Related To: Vaginal Delivery; Surgical Procedures; Invasive Procedures (Radha Morse, EDILMA) Goal(s): Patient will Maintain Optimal Skin Integrity, Free of Breakdown, Injury or Infection (Halley Garcia RN) Interventions: Complete Screening for Pressure Ulcer Risk and Initiate Protocol per Hospital Policy; Monitor Site of Skin Impairment for Color Changes, Redness, Swelling, Warmth, Pain or Other Signs of Infection; Encourage and Assist with Position Changes; Monitor Patient's Mobility Status; Provide Adequate Nutrition and Fluids; Teach Patient Appropriate Hygienic Care; Teach Patient/Family Skin Care Management (Halley Garcia RN) Outcome: Patient will not have Evidence of Injury Such as Skin Breakdown, Scrapes, Cuts, or Bruising (Halley Garcia RN) Status: Ongoing (Halley Garcia RN) Outcome: Patient will Report Any Altered Sensation or Pain at Site of Skin Impairment (Radha Morse, RN) Status: Ongoing (Radha Morse, RN) Outcome: Patients Incisions and Wounds will be without Signs or Symptoms of Infection (Radha Morse, RN) Status: Ongoing (Radha Morse RN) Outcome: Patient will Demonstrate Understanding of Plan to Heal Skin and Prevent Reinjury and Verbalize Risk Factors (Radha Morse, EDILMA) Status: Ongoing (Radha Morse RN) Parenting Impaired State: Not Applicable (Halley Garcia RN) Related To: Compromised Health Status; Apprehension Related to Care (Radha Morse RN) Goal(s): Parents will Demonstrate Progressive Parenting Behaviors (Radha Morse RN) Interventions: Assess for Adequacy of Support Systems; Observe and Encourage Patient/Family Attachment and Bonding Activities and Provide Feedback; Assess Patient/Family Understanding of Infant's Condition and Provide Accurate Information About Condition, Treatment and Prognosis; Assess for Patient/Family Behaviors that May Indicate Lack of Attachment; Provide a Safe Non-judgmental Environment for Patient/Family to Discuss Concerns; Promote Patient/Family Cohesiveness by Encouraging Discussion and Problem Solving; Pool Finisher Referral as Indicated (Radha Morse RN) Outcome: Patient/Family will Discuss Their Fears and the Possibility of Difficulties with Parenting (Radha Morse RN) Status: Ongoing (Radha Morse RN) Outcome: Patient/Family will Exhibit Appropriate Bonding Behaviors with (Radha Morse RN) Status: Ongoing (Radha Morse RN) Outcome: Patient/Family will Verbalize Positive Feelings and Demonstrate Affection and Caring Toward Infant (Radha Morse RN) Status: Ongoing (Radha Morse RN) Nutrition State: Risk For (Radha Morse RN) Related To: ; ; Surgical Procedure (Radha Morse RN) Goal(s): Patient will have an Intake of Nutrients Sufficient to Meet Metabolic Needs (Radha Morse RN) Interventions: Nutritional Screening and Assessment per Hospital Policy; Consult Wrapper Dipper for Further Assessment and Recommendations Regarding Food Preferences and Nutritional Support; Allow Patient to Plan and Order Diet when Possible; Monitor Laboratory Values That Indicate Nutritional Well-being; Consult Restaurant Recruiter for Nutritional Support Regarding Requirements; Document Actual Weight Initially and Weekly (Do Not Estimate); Encourage Patient Participation in Maintaining a Food Log as Indicated; Educate Patient on the Importance of Maintaining an Adequate Caloric Intake (Radha Morse RN) Outcome: Patient will Receive Adequate Calories and Fluid Volume to Meet Metabolic Needs (Radha Morse RN) Status: Ongoing (Radha Morse RN) Outcome: Patient will Select Foods or Meals that Support Adequate Nutrition (Radha Morse RN) Status: Ongoing (Radha Morse RN) Grieving State: Not Applicable (Halley Garcia RN) Additional Care Plan State: Not Applicable (Halley Garcia RN)
[2016-04-30 08:17] LABS: HEMATOCRIT 30.2 % (36.0-47.0); HEMOGLOBIN 9.6 g/dL (12.0-15.5); HGB HCT DIFFERENCE -1.4; MEAN CORPUSCULAR HEMOGLOBIN 25.2 pg (27.0-33.4); MEAN CORPUSCULAR HGB CONC 31.8 g/dL (32.0-36.0); MEAN CORPUSCULAR VOLUME 79 fl (80-97); RED BLOOD COUNT 3.82 10^6/uL (3.72-5.28); RED CELL DISTRIBUTION WIDTH 13.7 % (11.5-14.0)
[2016-04-30] MEDS: PRENATAL VITAMIN W-O CA NO5/FE FUMARATE/FA CAPSULE PO SCH (09:20)
[2016-04-30] MEDS: DOCUSATE SODIUM 100 MG CAPSULE PO SCH ×2 (09:21→17:06)
[2016-04-30] MEDS: FERROUS SULFATE 325 MG TABLET PO SCH ×2 (09:21→17:06)
[2016-04-30] MEDS: SENNOSIDES/DOCUSATE 8.6-50 MG 1 EACH TABLET PO SCH (09:21)
--- NOTE | 2016-04-30 10:32 | PDOC PROGRESS REPORT ---
Subjective-OB Subjective: Post Delivery Day: 26 year old. Denies any needs at this time Physical Exam (OB) Vital Signs: Temp Pulse Resp BP Pulse Ox 97.8 F 78 16 105/68 99 04/30/16 07:37 04/30/16 07:37 04/30/16 07:37 04/30/16 07:37 04/30/16 07:37 Intake & Output 04/29/16 04/30/16 05/01/16 06:59 06:59 06:59 Intake Total 1200 240 Balance 1200 240 - Lochia Lochia Amount: Scant < 10 ml Lochia Color: Rubra/Red - Abdomen Description: Soft, Round Hernia Present: No Bowel Sounds: Normoactive Flatus Presence: Present Stool: Yes Fundal Description: Firm, Midline Fundal Height: u/u - u/2 Objective-Diagnostic Laboratory: 04/30/16 07:36 04/30/16 07:36 WBC 15.0 H RBC 3.82 Hgb 9.6 L Hct 30.2 L MCV 79 L MCH 25.2 L MCHC 31.8 L RDW 13.7 Plt Count 158
[2016-05-01] MEDS: IBUPROFEN 800 MG TABLET PO SCH ×2 (05:15→13:25)
[2016-05-01 09:24] VITALS: BP 112/61
[2016-05-01] MEDS: SENNOSIDES/DOCUSATE 8.6-50 MG 1 EACH TABLET PO SCH (09:51)
[2016-05-01] MEDS: PRENATAL VITAMIN W-O CA NO5/FE FUMARATE/FA CAPSULE PO SCH (09:51)
[2016-05-01] MEDS: FERROUS SULFATE 325 MG TABLET PO SCH (09:51)
[2016-05-01] MEDS: DOCUSATE SODIUM 100 MG CAPSULE PO SCH (09:51)
--- NOTE | 2016-05-01 11:53 | PDOC DISCHARGE SUMMARY ---
Final Diagnosis Discharge Date: 05/01/16 - Final Diagnosis (1) Term Is this a current diagnosis for this admission?: Yes (2) Vaginal delivery Is this a current diagnosis for this admission?: Yes (3) Status post induction of labor Is this a current diagnosis for this admission?: Yes (4) Insufficient antepartum care Is this a current diagnosis for this admission?: Yes Discharge Data - Discharge Medication Home Medications: Vit/Iron Fumarate/FA [ Tablet] 1 tab PO DAILY 04/25/16 Docusate Sodium [Colace 100 mg Capsule] 100 mg PO BID #60 capsule 05/01/16 Ferrous Sulfate [Iron] 2 tab PO BID #60 tablet 05/01/16 Ibuprofen [Motrin 800 mg Tablet] 800 mg PO Q8HP PRN #90 tablet 05/01/16 Reason(s) for Admission: Induction of Labor Intrapartum Procedure(s): Spontaneous Vaginal Delivery Complication(s): Laceration-Labial Laceration-Degree: 1st - [place] Data Baby 1 Male at 1 minute: 8 at 5 minutes: 9 Weight: 3350 kg - Diagnosis Test Laboratory: Temp Pulse Resp BP Pulse Ox 97.7 F 66 17 112/61 99 05/01/16 10:07 05/01/16 10:07 05/01/16 10:07 05/01/16 10:07 05/01/16 10:07 04/27/16 04/27/16 04/27/16 15:25 16:18 17:25 RBC Cancelled 4.49 Hgb Cancelled 11.2 L Hct Cancelled 35.8 L Urine Opiates Screen NEGATIVE 04/30/16 07:36 RBC 3.82 Hgb 9.6 L Hct 30.2 L Urine Opiates Screen - Discharge information/Instructions Discharge Activity: Activity As Tolerated, Balance Activity w/Rest, No Lifting Over 10 Pounds, Pelvic Rest, Slowly Increase Activity, No tub bath Discharge Diet: Regular Disposition: HOME, SELF-CARE Follow up with: [facility] in: 4, Weeks Physical Exam (OB) Vital Signs: Temp Pulse Resp BP Pulse Ox 97.7 F 66 17 112/61 99 05/01/16 10:07 05/01/16 10:07 05/01/16 10:07 05/01/16 10:07 01/30/17 10:07 Intake & Output 04/30/16 05/01/16 05/02/16 06:59 06:59 06:59 Intake Total 1200 2580 Balance 1200 2580 - General General Appearance: Appears well In distress: None - Episiotomy/Laceration Site Condition: Well Approximated - Lochia Lochia Amount: Small 10-25 ml Lochia Color: Rubra/Red - Abdomen Description: Soft, Round Hernia Present: No Fundal Description: Firm, Midline Fundal Height: u/u - u/2 - Respiratory Respiratory Status: No respiratory distress - Extremities Upper extremity: Normal inspection Lower extremities: Normal inspection - Neurological Cognition: Normal Orientation: AAOx4 - Psychological Associated symptoms: Normal affect, Normal mood
[2016-05-01] MEDS ORDERED: MEDROXYPROGESTERONE ACET INJ 150 MG/1 ML VIAL IM ONE (11:55)
== END 2016-05-01 14:28 | disposition home or self-care (01) | DRG 775 ==
LOC: LC 15:09 → LR 15:48 → 2S 04-29 17:15
PROVIDERS: ADMIT Obstetrics & Gynecology; ATTEND Specialist
PROC: 10E0XZZ Delivery of Products of Conception, External Approach (ICD-10-PCS; principal; 2016-04-29)
PROC: 4A1HXCZ Monitoring of Products of Conception, Cardiac Rate, External Approach (ICD-10-PCS; 2016-04-29)
DX: O41.03X0 Oligohydramnios, third trimester, not applicable or unspecified (principal); O76 Abnormality in fetal heart rate and rhythm complicating labor and delivery; O70.0 First degree perineal laceration during delivery; Z37.0 Single live birth; Z3A.40 40 weeks gestation of pregnancy
CPT/HCPCS: 36415; 80307; 81005; 84112; 85025; 85027; 86592; 86850; 86900; 86901; 88307; 90686; 90707; 90715; J1050; J2300; J2550; J2590; J3490

== ENCOUNTER 2018-04-29 15:37 | Outpatient (CLI) | payer MEDICAID ==
[2018-04-29 16:20] LABS: APPEARANCE,URINE CLEAR; BILIRUBIN,URINE NEGATIVE (NEGATIVE); COLOR,URINE COLORLESS; GLUCOSE, URINE NEGATIVE (NEGATIVE); KETONES,URINE NEGATIVE (NEGATIVE); LEUKOCYTE ESTERASE,URINE NEGATIVE (NEGATIVE); NITRITE,URINE NEGATIVE (NEGATIVE); PROTEIN,URINE NEGATIVE (NEGATIVE); URINE SPECIFIC GRAVITY 1.001; UROBILINOGEN,URINE NEGATIVE mg/dL (<2.0)
--- NOTE | 2018-04-29 16:38 | Non Stress Test Report ---
Non Stress Test Datetime Report Generated by CPN: 04/29/2018 16:37 DEMOGRAPHIC EGA NST: 38.5 INDICATION Indication for Study: Ordered by Provider MONITORING Monitor Explained: Monitor Explained; Test Explained; Patient Verbalized Understanding Time on Monitor: 04/29/2018 16:11 Time off Monitor: 04/29/2018 16:34 NST Duration: 23 NST INTERVENTIONS NST Interventions: Reposition Patient Physician Notified NST: C. Dutta, CNM BABY A: [id number] BABY A Movement : Present Contraction Frequency : irregular FHR Baseline : 125 Accelerations : 15X15 Decelerations : None Variability : Moderate 6-25bpm NST Review: Meets Criteria for Reactive NST NST Review and Verified By : Alek García RN NST Results: Reactive NST REPORT Report Trigger: Send Report
[2018-04-29 16:52] LABS: URINE AMPHETAMINES SCREEN NEGATIVE; URINE BARBITURATES SCREEN NEGATIVE; URINE BENZODIAZEPINES SCREEN NEGATIVE; URINE COCAINE SCREEN NEGATIVE; URINE MARIJUANA (THC) SCREEN NEGATIVE; URINE METHADONE SCREEN NEGATIVE; URINE PHENCYCLIDINE SCREEN NEGATIVE
== END 2018-04-29 16:58 | disposition home or self-care (01) ==
LOC: LC 15:37
PROVIDERS: ATTEND Obstetrics & Gynecology
PROC: 4A1HXCZ Monitoring of Products of Conception, Cardiac Rate, External Approach (ICD-10-PCS; principal; 2018-04-29)
DX: Z34.93 Encounter for supervision of normal pregnancy, unspecified, third trimester (principal)
CPT/HCPCS: 59025; 80307; 81005; 84112

== ENCOUNTER 2018-05-03 19:31 | Outpatient (CLI) | payer MEDICAID ==
--- NOTE | 2018-05-03 20:14 | Non Stress Test Report ---
Non Stress Test Datetime Report Generated by CPN: 05/03/2018 20:14 DEMOGRAPHIC EGA NST: 39.2 INDICATION Indication for Study: Intrauterine Growth Restriction VITAL SIGNS Temperature - NST: 98.1 URINE RESULTS Urine Ketones - NST: Negative MONITORING Monitor Explained: Monitor Explained; Test Explained; Patient Verbalized Understanding Time on Monitor: 05/03/2018 19:53 Time off Monitor: 05/03/2018 20:03 NST Duration: 10 NST INTERVENTIONS NST Interventions: None Physician Notified NST: Palacio BABY A: [id number] BABY A Movement : Present Contraction Frequency : none FHR Baseline : 120 Accelerations : 15X15 Decelerations : None Variability : Moderate 6-25bpm NST Review: Meets Criteria for Reactive NST NST Review and Verified By : Ankush RN NST Results: Reactive NST REPORT Report Trigger: Send Report
== END 2018-05-03 20:03 | disposition home or self-care (01) ==
LOC: LC 19:31
PROVIDERS: ATTEND Obstetrics & Gynecology
PROC: 4A1HXCZ Monitoring of Products of Conception, Cardiac Rate, External Approach (ICD-10-PCS; principal; 2018-05-03)
DX: O36.5930 Maternal care for other known or suspected poor fetal growth, third trimester, not applicable or unspecified (principal); Z3A.39 39 weeks gestation of pregnancy
CPT/HCPCS: 59025

== ENCOUNTER 2018-05-05 19:35 | Inpatient (IN) | payer MEDICAID ==
[2018-05-05] MEDS ORDERED: MAG HYDROX/AL HYDROX/SIMETH SUSP 30 ML UDCUP PO PRN (19:58)
[2018-05-05] MEDS ORDERED: ACETAMINOPHEN 325 MG TABLET PO PRN (19:58)
[2018-05-05] MEDS ORDERED: ZOLPIDEM TARTRATE 5 MG TABLET PO PRN (19:58)
[2018-05-05] MEDS ORDERED: RINGERS SOLUTION,LACTATED 300 ML IV ONE (19:58)
[2018-05-05] MEDS ORDERED: DINOPROSTONE 10 MG VAGINAL INSERT.SR PV ONE (19:58)
[2018-05-05 20:25] LABS: ABSOLUTE EOSINOPHILS # (AUTO) 0.1 10^3/uL (0.0-0.6); ABSOLUTE LYMPHOCYTES (AUTO) 1.7 10^3/uL (0.5-4.7); ABSOLUTE MONOCYTES (AUTO) 0.5 10^3/uL (0.1-1.4); ABSOLUTE NEUT (AUTO) 5.7 10^3/uL (1.7-8.2); APPEARANCE,URINE CLEAR; BASOPHILS % (AUTO) 0.4 % (0-2); BILIRUBIN,URINE NEGATIVE (NEGATIVE); COLOR,URINE STRAW; EOSINOPHILS % (AUTO) 1.2 % (0-6); GLUCOSE, URINE NEGATIVE (NEGATIVE); HEMOGLOBIN 12.3 g/dL (12.0-15.5); KETONES,URINE NEGATIVE (NEGATIVE); LEUKOCYTE ESTERASE,URINE NEGATIVE (NEGATIVE); LYMPHOCYTES % (AUTO) 20.8 % (13-45); MEAN CORPUSCULAR VOLUME 79 fl (80-97); MONOCYTES % (AUTO) 5.9 % (3-13); NITRITE,URINE NEGATIVE (NEGATIVE); PLATELET COUNT 234 10^3/uL (150-450); PROTEIN,URINE NEGATIVE (NEGATIVE); RED BLOOD COUNT 4.55 10^6/uL (3.72-5.28); RED CELL DISTRIBUTION WIDTH 13.4 % (11.5-14.0); SEGMENTED NEUTROPHILS % (AUTO) 71.7 % (42-78); TOTAL CELLS COUNTED % (AUTO) 100 %; URINE SPECIFIC GRAVITY 1.002; UROBILINOGEN,URINE NEGATIVE mg/dL (<2.0); WHITE BLOOD COUNT 7.9 10^3/uL (4.0-10.5)
[2018-05-05 20:41] LABS: URINE AMPHETAMINES SCREEN NEGATIVE; URINE BARBITURATES SCREEN NEGATIVE; URINE BENZODIAZEPINES SCREEN NEGATIVE; URINE COCAINE SCREEN NEGATIVE; URINE MARIJUANA (THC) SCREEN NEGATIVE; URINE METHADONE SCREEN NEGATIVE; URINE PHENCYCLIDINE SCREEN NEGATIVE
[2018-05-05] MEDS ORDERED: DINOPROSTONE 10 MG VAGINAL INSERT.SR ONE (21:36)
[2018-05-05] MEDS ORDERED: ZOLPIDEM TARTRATE 5 MG TABLET ONE (23:52)
--- NOTE | 2018-05-06 02:07 | Admission Physical ---
Datetime Report Generated by CPN: 05/06/2018 02:06 CURRENT ADMISSION Chief Complaint: Scheduled Induction of Labor Indication for Induction: IUGR Admit Impression : Term, Intrauterine ; Induction of Labor Admit Plan: Admit to Unit ALLERGIES Medication Allergies: No Medication Allergies: No Known Allergies (05/05/2018) Latex: No Latex Allergies OBSTETRICAL HISTORY EDC: 05/08/2018 00:00 : 3 Para: 1 Livin Gestational Diabetes: No Rh Sensitization: No Incompetent Cervix: No DOROTEO: No Infertility: No ART Treatment: No Uterine Anomaly: No IUGR: No Hx Previous C/S: No Macrosomia: No Hx Loss/Stillborn: No PIH: No Hx : No Placenta Previa/Abruption: No Depression/PP Depression: No PTL/PROM: No Post Hemorrhage: No Current Procedures: Ultrasound; NST Obstetrical History Comments: G1: 2007 6 weeks EAB G2: 40 weeks , male G3: current, IUGR, induction SEE RECORDS Alcohol: No Marijuana : No Cocaine: No Other Illicit Drugs: No Cigarettes: Never Smoker. 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 Surgery: No Heart Disease: No Hosp/Surgery: Yes Autoimmune Disorder: No Anesthetic Complications: No Kidney Disease: No Abnormal Pap Smear: No Neuro/Epilepsy: No Psychiatric Disorders: No Other Medical Diseases: No Hepatitis/Liver Disease: No Significant Family History: No Varicosities/Phlebitis: No Trauma/Violence : No Thyroid Dysfunction: No Medical History Comments: childbirth x 1 INFECTIOUS HISTORY Gonorrhea: No Genital Herpes: No Chlamydia: No Tuberculosis: No Syphilis: No Hepatitis: No HIV/AIDS Exposure: No Rash or Viral Illness: No HPV: No PHYSICAL EXAM General: Normal HEENT: Normal Neurologic: Normal Thyroid: Normal Heart: Normal Lungs: Normal Breast: Deferred Back: Normal Abdomen: Normal Genitourinary Exam: Normal Extremities: Normal DTRs: Normal Pelvic Type: Adequate Vital Signs: Reviewed VAGINAL EXAM Dilatation: 1 Effacement: 0 Station: -3 MEMBRANES Pooling: Negative Membranes: Intact FETUS A EGA: 39.5 Monitoring: External US FHR- Baseline: 120 Variability: Moderate 6-25bpm Decelerations: None FHR Category: Category I Presentation: Vertex Admit Comment: Admit for induction PLANS FOR LABOR AND DELIVERY Labor and Delivery: None Pain Management: Epidural Feeding Preference: Breast Benefit of Breast Feed Discussed: Yes Circumcision: N/A INFORMED CONSENT Signature: with User ID: [email or web address]
[2018-05-06] MEDS: RINGERS SOLUTION,LACTATED 1,000 ML IV PRN ×2 (06:39→20:51)
[2018-05-06] MEDS ORDERED: PENICILLIN G POTASSIUM 5,000,000 UNIT in DEXTROSE 5%-WATER 100 ML IV ONE (09:00)
[2018-05-06] MEDS ORDERED: PENICILLIN G-K 5 MILLION UNIT VIAL IV ONE (09:15)
--- NOTE | 2018-05-06 09:48 | L&D Progress Notes ---
PROGRESS NOTES Datetime Report Generated by CPN: 05/06/2018 09:48 PROGRESS NOTE Impression: Reassuring Heart Rate Procedures: Sterile Vag Exam Plan: Induction; Cervical Ripening Vital Signs : Reviewed; Within Normal Limits Comment: IOL for IUGR. S/p Cervidil, removed this morning. Pt remains comfortable and did eat breakfast. VE 1/50/-2. GBS+, needs PCN started when in active labor. Pt to get up and shower, then will continue with Cervical ripening process. Attending MD is Dr Garcia VAGINAL EXAM Dilatation: 1 Dilatation: 1 Effacement: 50 Effacement: 0 Station: -2 Station: -3 Contractions: irregular LAST VAGINAL EXAM-NURSING Dilitation: 1.0 Dilitation: FT Effacement: 50 Effacement: thick Station: -2 Station: -3 MEMBRANES Pooling: Negative Membranes: Intact Membranes: Intact FETUS A FHR - Baseline: 125 Monitoring: External US Variability: Moderate 6-25bpm Accelerations: 15X15 Decelerations: None FHR Category: Category I : 39.0 Presentation: Vertex SIGNATURE SIGNATURE: [id number];[id number];[id number] SIGNATURE: [id number];[id number] SIGNATURE: [id number] SIGNATURE: [id number] Assignment: Jil Garcia MD Signature: with User ID: [email or web address] : with User ID: [email or web address]
[2018-05-06] MEDS ORDERED: OXYTOCIN/NORMAL SALINE 1,000 ML IV PRN (09:50)
[2018-05-06] MEDS ORDERED: MISOPROSTOL 0.1 MG TABLET ONE (10:27)
[2018-05-06] MEDS: MISOPROSTOL 0.1 MG TABLET PO SCH (10:39)
[2018-05-06] MEDS: MISOPROSTOL 0.1 MG TABLET PV SCH (10:39)
--- NOTE | 2018-05-06 14:45 | L&D Progress Notes ---
PROGRESS NOTES Datetime Report Generated by CPN: 05/06/2018 14:45 PROGRESS NOTE Impression: Reassuring Heart Rate Procedures: Sterile Vag Exam Plan: Continue Present Management; Induction Plan Other: pt to ambulate for a few hours Vital Signs : Reviewed; Within Normal Limits Comment: IOL, pt remains comfortable. s/p Cytotec after Cervidil overnight. VE /-2. Will allow pt to ambulate in hallway for 1-2 hours. GBS+, will start PCN when in active labor. VAGINAL EXAM Dilatation: 2 Effacement: 50 Station: -2 Contractions: 2-5 Dilitation: 2.0 Effacement: 50 Station: -2 MEMBRANES Membranes: Intact FETUS A FHR - Baseline: 135 Monitoring: External US Variability: Moderate 6-25bpm Accelerations: 15X15 Decelerations: None FHR Category: Category I FETUS C SIGNATURE: [id number];[id number];[id number] Assignment: Jil Garcia MD Signature: with User ID: [email or web address] : with User ID: [email or web address]
[2018-05-06] MEDS ORDERED: PENICILLIN G-K 5 MILLION UNIT VIAL ONE ×2 (16:15→20:16)
--- NOTE | 2018-05-06 16:21 | L&D Progress Notes ---
PROGRESS NOTES Datetime Report Generated by CPN: 05/06/2018 16:21 PROGRESS NOTE Impression: Reassuring Heart Rate Procedures: Sterile Vag Exam Plan: Continue Present Management; Induction Vital Signs : Reviewed; Within Normal Limits Comment: Pt remains comfortable, but states contractions getting stronger. GBS+. Will start PCN prophylaxis. VE 2/50/-1. May need to augment with Pitocin. Plan AROM once PCN has been given. VAGINAL EXAM Dilatation: 2 Effacement: 50 Station: -1 Contractions: 1-3 Dilitation: 2.0 Effacement: 50 Station: -1 MEMBRANES Membranes: Intact FETUS A FHR - Baseline: 140 Monitoring: External US Variability: Moderate 6-25bpm Accelerations: 15X15 Decelerations: None FETUS C SIGNATURE: [id number];[id number];13,[id number] Assignment: Jil Garcia MD Signature: with User ID: [email or web address] : with User ID: [email or web address]
--- NOTE | 2018-05-06 17:14 | L&D Progress Notes ---
PROGRESS NOTES Datetime Report Generated by CPN: 05/06/2018 17:14 PROGRESS NOTE Impression: Reassuring Heart Rate Procedures: Sterile Vag Exam Procedures- Other: Cook's Catheter placed Plan: Induction Vital Signs : Reviewed; Within Normal Limits Comment: Cook's Catheter placed into cervix for continued cervical ripening. 60 ml placed in each balloon. PCN x 1 dose infused for +GBS. Pt may need Pitocin to augment labor. VAGINAL EXAM Dilatation: 2 Effacement: 50 Station: -1 Contractions: 2-3 FETUS A Monitoring: External US Decelerations: None FHR Category: Category I FETUS C SIGNATURE: [id number];[id number];[id number] Assignment: Jil Garcia MD Signature: with User ID: [email or web address] : with User ID: [email or web address]
[2018-05-06] MEDS ORDERED: PROMETHAZINE HCL INJ 25 MG/1 ML VIAL IV ONE (17:35)
[2018-05-06] MEDS ORDERED: NALBUPHINE HCL INJ 10 MG/1 ML AMPULE INJ ONE (17:35)
[2018-05-06] MEDS ORDERED: NALBUPHINE HCL INJ 10 MG/1 ML AMPULE ONE (17:44)
[2018-05-06] MEDS ORDERED: PROMETHAZINE HCL INJ 25 MG/1 ML VIAL ONE (17:44)
[2018-05-06] MEDS ORDERED: MISOPROSTOL 0.2 MG TABLET ONE (20:15)
[2018-05-06] MEDS ORDERED: EPHEDRINE SULFATE INJ 50 MG/1 ML AMPULE ONE (20:15)
[2018-05-06] MEDS ORDERED: OXYTOCIN 10 UNIT/ML VIAL ONE (20:15)
[2018-05-06] MEDS ORDERED: LIDOCAINE 1% INJ-PF (10 MG/ML) 30 ML SDV ONE (20:16)
[2018-05-06] MEDS ORDERED: OXYTOCIN/NORMAL SALINE 20 UNIT/1,000 ML RTUINJ ONE (20:16)
[2018-05-06] MEDS ORDERED: BUPIVACAINE HCL 0.25 % INJ/PF (2.5 MG/1 ML) 30 ML VIAL ONE (20:16)
[2018-05-06] MEDS ORDERED: FENTANYL/BUPIVACAINE/NS/PF 300 MCG/150 ML RTUINJ EPI ONE (20:16)
[2018-05-06] MEDS: PENICILLIN G POTASSIUM 2,500,000 UNIT in DEXTROSE 5%-WATER 50 ML IV SCH (20:25)
[2018-05-06] MEDS ORDERED: ACETAMINOPHEN WITH CODEINE #3 TABLET PO PRN ×2 (23:05)
[2018-05-06] MEDS ORDERED: PSEUDOEPHEDRINE HCL 30 MG TABLET PO PRN (23:05)
[2018-05-06] MEDS ORDERED: DIBUCAINE 1% OINTMENT 28 GM TP PRN (23:05)
[2018-05-06] MEDS ORDERED: ACETAMINOPHEN 650 MG SUPP.RECT PR PRN (23:05)
[2018-05-06] MEDS ORDERED: PROMETHAZINE HCL 25 MG TABLET PO PRN (23:05)
[2018-05-06] MEDS ORDERED: DIPHENHYDRAMINE HCL 25 MG CAPSULE PO PRN (23:05)
[2018-05-06] MEDS ORDERED: NA PHOS,M-B/NA PHOS,DI-BA (ADULT) 133 ML ENEMA PR PRN (23:05)
[2018-05-06] MEDS ORDERED: PROMETHAZINE HCL INJ 25 MG/1 ML VIAL IV PRN (23:05)
[2018-05-06] MEDS ORDERED: DIPH/PERTUSS(ACELL)/TETANUS VAC/PF 0.5 ML SYR (>=10YO) IM PRN (23:05)
[2018-05-06] MEDS ORDERED: BENZOCAINE/MENTHOL AEROSOL SPRAY 56 ML TOP PRN (23:05)
[2018-05-06] MEDS ORDERED: PROMETHAZINE HCL 25 MG SUPP.RECT PR PRN (23:05)
[2018-05-06] MEDS ORDERED: OXYTOCIN/NORMAL SALINE 20 UNIT/1,000 ML RTUINJ IV PRN (23:05)
[2018-05-06] MEDS ORDERED: ZOLPIDEM TARTRATE 5 MG TABLET PO PRN (23:05)
[2018-05-06] MEDS ORDERED: GLYCERIN/WITCH HAZEL LEAF 1 EACH MED..PAD TP PRN (23:05)
[2018-05-06] MEDS ORDERED: MEASLES,MUMPS&RUBELLA VACC/PF 0.5 ML VIAL SUBCUT PRN (23:05)
[2018-05-06] MEDS ORDERED: MAGNESIUM HYDROXIDE SUSP 30 ML UDCUP PO PRN (23:05)
--- NOTE | 2018-05-07 01:18 | Delivery Summary ---
Del Sum A-C Datetime Report Generated by CPN: 05/07/2018 01:17 DELIVERY PERSONNEL DELIVERY PERSONNEL: [id number] Delivery Doctor:: Jil Garcia MD Labor and Delivery Nurse:: Dulce Patino RNmandarin teacher Nurse:: Bertha Luther RN Costume Draper/COMPUTER ANALYST: Myah Stewart, SENIOR POLICY ASSOCIATE MATERNAL INFORMATION Delivery Anesthesia: Epidural Medications After Delivery: Pitocin Drip 20 Units/1000ml NSS Estimated Blood Loss (ml): 200 Maternal Complications: None LABOR SUMMARY EDC: 05/08/2018 00:00 No. Babies in Womb: 1 Attempted: No Labor Anesthesia: Epidural LABOR INFORMATION Reason for Induction: Intrauterine Growth Retardation Onset of Labor: 05/06/2018 21:27 Complete Dilatation: 05/06/2018 22:40 Cervical Ripening Agents: Cervidil; Cole Balloon Oxytocin: Induction Group B Beta Strep: positive Antibiotics # of Doses: 2 Antibiotics Time of Last Dose: 2024 Name of Antibiotic Given: PCN Steroids Given: None Reason Steroids Not Administered: Not Applicable MEMBRANES Membranes Rupture Method: Spontaneous Rupture of Membranes: 05/06/2018 22:40 Length of Rupture (hr): 0.23 Amniotic Fluid Color: Clear Amniotic Fluid Amount: Small Amniotic Fluid Odor: Normal STAGES OF LABOR Stage 1 hr: 1 Stage 1 min: 13 Stage 2 hr: 0 Stage 2 min: 14 Stage 3 hr: 0 Stage 3 min: 3 Total Time in Labor hr: 1 Total Time in Labor min: 30 VAGINAL DELIVERY Episiotomy: None Laceration #1: None Laceration Extension #1: N/A Laceration Repair: Not Applicable CSECTION DELIVERY Primary Indication: N/A Secondary Indication: N/A CSection Incidence: N/A Labor: N/A Elective: N/A CSection Incision: N/A BABY A INFORMATION Infant Delivery Date/Time: 05/06/2018 22:54 Method of Delivery: Vaginal Born in Route : No : N/A Forceps: N/A Vacuum Extraction: N/A Shoulder Dystocia : No PRESENTATION/POSITION BABY A Presentation: Cephalic Cephalic Presentation: Vertex Breech Presentation: N/A PLACENTA INFORMATION BABY A Placenta Delivery Time : 05/06/2018 22:57 Placenta Method of Delivery: Spontaneous Placenta Status: Delivered SCORES BABY A Heart Rate 1 min: >100 bpm Resp Effort 1 min: Good Cry Reflex Irritability 1 min: Cough or Sneeze or Pulls Away Muscle Tone 1 min: Active Motion Color 1 min: Blue/Pale Resuscitation Effort 1 min: Tactile Stimulation SCORE 1 MIN: 8 Heart Rate 5 min: >100 bpm Resp Effort 5 min: Good Cry Reflex Irritability 5 min: Cough or Sneeze or Pulls Away Muscle Tone 5 min: Active Motion Color 5 min: Body [place], Extremities Blue Resuscitation Effort 5 min: Tactile Stimulation SCORE 5 MIN: 9 INFANT INFORMATION BABY A Gestational Age at Delivery: 39.5 Gestational Status: Full Term- 39- 40.6 Weeks Infant Outcome : Liveborn Condition : Stable Sex: Female IDENTIFICATION BABY A Infant Verification Date/Time: 05/06/2018 23:05 ID Band Number: [id number] Mother's Name Verified: Yes Infant RN Verifying Infant: Oracio RN/ A.Mandeeper RN WEIGHT/LENGTH BABY A Infant Birthweight (gm): 3210 Infant Weight (lb): 7 Weight (oz): 1 Length (in): 20.00 Infant Length (cm): 50.80 CORD INFORMATION BABY A No. Cord Vessels: 3 Nuchal Cord : N/A Cord Blood Taken: Yes-For Storage (Mom's Blood type +) Suction: None ASSESSMENT BABY A Infant Complications: None Physical Findings at Delivery: Molding of the Head Respirations: Appears Normal Skin to Skin: Yes Aerial Hurricane Hunter/ALS Called : No Infant Care By: Sushil Luther RN Transferred To: Remains with Mother BABY B INFORMATION : N/A SIGNATURES Signature: with User ID: [email or web address]
[2018-05-07] MEDS: MISOPROSTOL 0.1 MG TABLET PO SCH (02:14)
[2018-05-07] MEDS: MISOPROSTOL 0.1 MG TABLET PV SCH (02:14)
[2018-05-07] MEDS: IBUPROFEN 800 MG TABLET PO SCH ×3 (05:28→21:46)
[2018-05-07 08:32] LABS: HEMATOCRIT 32.3 % (36.0-47.0); HEMOGLOBIN 10.9 g/dL (12.0-15.5); MEAN CORPUSCULAR HEMOGLOBIN 26.7 pg (27.0-33.4); MEAN CORPUSCULAR HGB CONC 33.8 g/dL (32.0-36.0); MEAN CORPUSCULAR VOLUME 79 fl (80-97); PLATELET COUNT 193 10^3/uL (150-450); RED BLOOD COUNT 4.08 10^6/uL (3.72-5.28); RED CELL DISTRIBUTION WIDTH 13.6 % (11.5-14.0); WHITE BLOOD COUNT 12.9 10^3/uL (4.0-10.5)
--- NOTE | 2018-05-07 09:21 | PDOC PROGRESS REPORT ---
Subjective-OB Progress Note for:: 05/07/18 Subjective: Pt doing well, no concerns. She reports light bleeding, reg diet and voiding without difficulty. Physical Exam (OB) Vital Signs: Temp Pulse Resp BP Pulse Ox 98.2 F 65 15 100/55 L 100 05/07/18 07:41 05/07/18 07:41 05/07/18 07:41 05/07/18 07:41 05/07/18 07:41 Intake & Output 05/06/18 05/07/18 05/08/18 06:59 06:59 06:59 Intake Total 1000 Balance 1000 Weight 68.4 kg - Lochia Lochia Color: Rubra/Red - Abdomen Description: Soft, Round Fundal Description: Firm Fundal Height: u/u - u/2 Objective-Diagnostic Laboratory: 05/07/18 08:11 05/07/18 08:11 WBC 12.9 H RBC 4.08 Hgb 10.9 L Hct 32.3 L MCV 79 L MCH 26.7 L MCHC 33.8 RDW 13.6 Plt Count 193 Assessment and Plan(PN) - Assessment and Plan (1) Delivery normal Is this a current diagnosis for this admission?: Yes (2) Status post induction of labor Is this a current diagnosis for this admission?: Yes - Time Spent with Patient Time with patient: Less than 15 minutes Medications reviewed and adjusted accordingly: Yes - Disposition Anticipated Discharge: Home Within: within 24 hours
[2018-05-07] MEDS: FERROUS SULFATE 325 MG TABLET PO SCH ×2 (10:51→17:26)
[2018-05-07] MEDS: SENNOSIDES/DOCUSATE 8.6-50 MG 1 EACH TABLET PO SCH (10:51)
[2018-05-07] MEDS: DOCUSATE SODIUM 100 MG CAPSULE PO SCH ×2 (10:51→17:26)
[2018-05-07] MEDS: PRENATAL VITAMIN W DHA CAPSULE PO SCH (10:52)
[2018-05-07] MEDS: FAMOTIDINE 20 MG TABLET PO SCH ×2 (10:52→21:46)
[2018-05-07] MEDS: PENICILLIN G POTASSIUM 2,500,000 UNIT in DEXTROSE 5%-WATER 50 ML IV SCH (19:51)
[2018-05-08] MEDS: IBUPROFEN 800 MG TABLET PO SCH ×2 (06:09→14:22)
[2018-05-08 09:17] VITALS: BP 103/88
[2018-05-08] MEDS: SENNOSIDES/DOCUSATE 8.6-50 MG 1 EACH TABLET PO SCH (09:55)
[2018-05-08] MEDS: PRENATAL VITAMIN W DHA CAPSULE PO SCH (09:55)
[2018-05-08] MEDS: FERROUS SULFATE 325 MG TABLET PO SCH (09:55)
[2018-05-08] MEDS: DOCUSATE SODIUM 100 MG CAPSULE PO SCH (09:55)
[2018-05-08] MEDS: FAMOTIDINE 20 MG TABLET PO SCH (09:55)
[2018-05-08] MEDS ORDERED: MEDROXYPROGESTERONE ACET INJ 150 MG/1 ML VIAL IM ONE ×2 (10:46→14:00)
--- NOTE | 2018-05-08 10:46 | PDOC DISCHARGE SUMMARY ---
Final Diagnosis Discharge Date: 05/08/18 - Final Diagnosis (1) Term Is this a current diagnosis for this admission?: Yes (2) Vaginal delivery Is this a current diagnosis for this admission?: Yes (3) Status post induction of labor Is this a current diagnosis for this admission?: Yes (4) Insufficient antepartum care Is this a current diagnosis for this admission?: Yes (5) Delivery normal Is this a current diagnosis for this admission?: Yes (6) Acute blood loss anemia Is this a current diagnosis for this admission?: Yes Discharge Data - Discharge Medication Prescriptions: Ibuprofen [Motrin 800 mg Tablet] 800 mg PO Q8HP PRN #30 tablet PRN Reason: Abdominal Cramping Docusate Sodium [Colace 100 mg Capsule] 100 mg PO BID #60 capsule Ferrous Sulfate [Feosol 325 mg Tablet] 325 mg PO BID #60 tablet Home Medications: Vit/Iron Fum/Folic AC [ Tablet] 1 tab PO DAILY 04/25/16 Docusate Sodium [Colace 100 mg Capsule] 100 mg PO BID #60 capsule 05/08/18 Ferrous Sulfate [Feosol 325 mg Tablet] 325 mg PO BID #60 tablet 05/08/18 Ibuprofen [Motrin 800 mg Tablet] 800 mg PO Q8HP PRN #30 tablet 05/08/18 Reason(s) for Admission: Induction of Labor Procedures: NST, Ultrasound Intrapartum Procedure(s): Spontaneous Vaginal Delivery - Diagnosis Test Laboratory: Temp Pulse Resp BP Pulse Ox 98.0 F 75 15 103/88 H 96 05/08/18 08:33 05/08/18 08:33 05/08/18 08:33 05/08/18 08:33 05/08/18 08:33 05/05/18 05/05/18 05/07/18 20:12 20:12 08:11 RBC 4.55 4.08 Hgb 12.3 10.9 L Hct 36.0 32.3 L Urine Opiates Screen NEGATIVE - Discharge information/Instructions Discharge Activity: Activity As Tolerated, Balance Activity w/Rest, No Lifting Over 10 Pounds, Pelvic Rest, No tub bath, Walk Frequently Discharge Diet: As Tolerated, Regular Disposition: HOME, SELF-CARE Follow up with: [facility] in: 4, Weeks
== END 2018-05-08 15:00 | disposition home or self-care (01) | DRG 806 ==
LOC: LR 19:35 → 2S 05-07 01:04
PROVIDERS: ADMIT Obstetrics & Gynecology; ATTEND Obstetrics & Gynecology
PROC: 4A1HXCZ Monitoring of Products of Conception, Cardiac Rate, External Approach (ICD-10-PCS; 2018-05-05)
PROC: 10E0XZZ Delivery of Products of Conception, External Approach (ICD-10-PCS; principal; 2018-05-06)
PROC: 3E033VJ Introduction of Other Hormone into Peripheral Vein, Percutaneous Approach (ICD-10-PCS; 2018-05-06)
PROC: 3E0234Z Introduction of Serum, Toxoid and Vaccine into Muscle, Percutaneous Approach (ICD-10-PCS; 2018-05-06)
DX: O99.824 Streptococcus B carrier state complicating childbirth (principal); D62 Acute posthemorrhagic anemia; Z37.0 Single live birth; O36.5930 Maternal care for other known or suspected poor fetal growth, third trimester, not applicable or unspecified; Z3A.39 39 weeks gestation of pregnancy; O90.81 Anemia of the puerperium; Z23 Encounter for immunization
CPT/HCPCS: 36415; 80307; 81005; 85025; 85027; 86592; 86850; 86900; 86901; 90471; 90686; 90715; 94760; G0008; J1050; J2300; J2540; J2550; J2590; J3010; J3490